=== PATIENT | female | born 1955 | race Caucasian/White ===

== ENCOUNTER → 2017-05-03 | Outpatient (CLI) | payer MEDICARE ==
[2017-05-03 13:53] LABS: Appearance,Urine Clear (Clear); Bacteria,Urine Many /hpf; Bilirubin,Urine Negative (Negative); Glucose,Urine (UA) Negative (Negative); Ketones,Urine Negative (Negative); Leukocyte Esterase,Urine Moderate (Negative); Mucus,Urine Rare /hpf; Nitrite,Urine Negative (Negative); Particle Count 2481; Protein,Urine Trace (Negative); Specific Gravity,Urine 1.014 (1.001-1.035); Squamous Epithelial Cell,Urine 3 /hpf (0-4); UA Billing (MACRO vs. MICRO) MICRO; Urobilinogen,Urine <2.0 mg/dL (<2.0); WBC,Urine 15 /hpf (0-5)
[2017-05-03 14:01] LABS: CH 32.3; CHCM 32.7; HCT 42.5 % (34.0-46.0); HDW 3.01; HGB 14.4 gm/dL (11.4-16.0); MCH 33.6 pg (25.0-35.0); MCHC 33.8 g/dL (31.0-37.0); MCV 99.6 fL (80.0-100.0); Macrocytosis Slight; Mean Platelet Volume 7.3; RBC 4.27 m/uL (3.80-5.40); RDW 15.4 % (11.5-15.5); WBC 6.8 k/uL (3.8-10.6)
[2017-05-03 14:21] LABS: ALT 41 U/L (9-52); AST 36 U/L (14-36); Alkaline Phosphatase 74 U/L (38-126); Anion Gap 11 mmol/L; Blood Urea Nitrogen 25 mg/dL (7-17); Calcium 9.9 mg/dL (8.4-10.2); Carbon Dioxide 26 mmol/L (22-30); Chloride 101 mmol/L (98-107); Cholesterol 142 mg/dL (<200); Glucose 92 mg/dL (74-99); HDL Cholesterol 50 mg/dL (40-60); Non-African American GFR(MDRD) 56 (>60 ml/min/1.73 sqM); Potassium 4.8 mmol/L (3.5-5.1); Sodium 138 mmol/L (137-145); Total Bilirubin 0.6 mg/dL (0.2-1.3)
[2017-05-03 14:23] LABS: Rheumatoid Factor, Qnt <9 IU/mL (<12)
[2017-05-03 16:07] LABS: Erythrocyte Sedimentation Rate 39 mm/hr (0-20)
[2017-05-03 17:36] LABS: Hemoglobin A1C 6.2 % (4.2-6.1)
[2017-05-03 19:46] LABS: ANA w/Reflex to Titer POSITIVE (NEGATIVE)
== END | disposition home or self-care (01) ==
LOC: LABWHC1 13:09
PROVIDERS: ATTEND Family Medicine
DX: E78.5 Hyperlipidemia, unspecified (principal); I10 Essential (primary) hypertension; R73.9 Hyperglycemia, unspecified; M19.91 Primary osteoarthritis, unspecified site
CPT/HCPCS: 36415; 80053; 80061; 81001; 83036; 84439; 84443; 84550; 85027; 85652; 86038; 86039; 86225; 86431

== ENCOUNTER 2017-05-16 07:53 | Day surgery (SDC) | payer MEDICARE ==
[2017-05-14 18:09] VITALS: BMI 42.5
[~2017-05-16 07:53] MED LIST: LACTATED RINGERS 1,000 ML IV SCH
[2017-05-16 08:30] VITALS: TEMP 98.9
[2017-05-16] MEDS ORDERED: LIDOCAINE 1% 20 ML VIAL (10MG/ML) FOR IV START INTRADERMA ONE (08:43)
[2017-05-16 08:46] LABS: Glucose,Whole Blood 95 mg/dL (75-99)
[2017-05-16] MEDS ORDERED: MIDAZOLAM 2 MG/2 ML VIAL ONE (08:49)
[2017-05-16] MEDS ORDERED: fentaNYL (PF) 50 MCG/ML 2 ML AMP ONE (08:49)
[2017-05-16] MEDS ORDERED: PROPOFOL 10 MG/ML 20 ML VIAL IV ONE (08:49)
--- NOTE | 2017-05-16 09:05 | P.PCN ---
Date of Procedure: 05/16/17 Procedure(s) Performed: BRIEF HISTORY: Patient is a 61-year-old pleasant white female, scheduled for an elective colonoscopy as a part of screening for colorectal neoplasia. She also has family history of colon cancer diagnosed in her mother at age 55. PROCEDURE PERFORMED: Colonoscopy with biopsy. PREOPERATIVE DIAGNOSIS: Screening for colon cancer and family history of colon cancer. IV sedation per Anesthesia. PROCEDURE: After informed consent was obtained, the patient, was brought into the endoscopy unit. IV sedation was administered by Anesthesia under continuous monitoring. Digital rectal examination was normal. Initially the Olympus CF- 160 flexible video colonoscope was then inserted in the rectum, gradually advanced into the cecum without any difficulty. Careful examination was performed as the scope was gradually being withdrawn. Ileocecal valve and the appendiceal orifice were visualized and appeared normal. Prep was excellent. In the base of the cecum there was a 5 mm polyp that was removed by biopsy. Mucosa of the cecum, ascending colon, transverse colon, descending colon, sigmoid colon, and rectum appeared normal. Retroflexion was performed in the rectum and no lesions were seen. The patient tolerated the procedure well. IMPRESSION: 5 mm cecal polyp status post removal by biopsy. Rest of the colon appeared normal. RECOMMENDATIONS: Findings of this examination were discussed with the patient as well as a family. She was advised to follow with the biopsy results. She was advised to have a repeat colonoscopy in 5 years because of the family history of colon cancer
[2017-05-16 09:11] VITALS: RESP 20
[2017-05-16 09:31] VITALS: BP 119/74; PULSE 62
== END 2017-05-16 09:50 | disposition home or self-care (01) ==
LOC: ORWHC2ENDO 07:53
PROVIDERS: ATTEND Internal Medicine Gastroenterology
DX: Z12.11 Encounter for screening for malignant neoplasm of colon (principal); K63.5 Polyp of colon; Z80.0 Family history of malignant neoplasm of digestive organs; I10 Essential (primary) hypertension; E78.5 Hyperlipidemia, unspecified; K21.9 Gastro-esophageal reflux disease without esophagitis; Z79.891 Long term (current) use of opiate analgesic; Z79.899 Other long term (current) drug therapy
CPT/HCPCS: 88305; 45380; J2250; J3010; J2704

== ENCOUNTER → 2017-05-24 | Outpatient (CLI) | payer MEDICARE ==
--- NOTE | 2017-05-24 15:15 | BD ---
EXAMINATION TYPE: MG DEXA axial skeleton. DATE OF EXAM: 05/24/2017 CLINICAL HISTORY: Postmenopausal female. Screening. Height: 58.75 Weight: 220 FRAX RISK QUESTIONS: Alcohol (3 or more units per day): no Family History (Parent hip fracture): no Glucocorticoids (More than 3mos): no (Ex: prednisone, prednisolone, methylprednisolone, dexamethasone, and hydrocortisone). History of Fracture in Adulthood: yes, right ankle 2009 Secondary Osteoporosis: 1. Type 1 Diabetes: no 2. Hyperthyroidism: no 3. Menopause before 45: no 4. Malnutrition: no 5. Chronic liver disease: no Rheumatoid Arthritis: unsure; being tested Current Tobacco Use: no RISK FACTORS HISTORY OF: Family History of Osteoporosis: perhaps mother Active: somewhat Diet low in dairy products/other sources of calcium: no Postmenopausal woman: yes Take estrogen and/or progesterone medications: no Lost more than 2 inches in height since high school: unsure, states may have been about 5 feet 2 inch es tall at one time Frequent falls: not often Poor Health: patient states not in good health Hyperparathyroidism: no Adrenal Insufficiency: no MEDICATIONS: Prednisone or other steroids: no Thyroid Medications: no Osteoporosis Medications: no Additional Medications: "water pill", cholesterol meds, multivitamin Additional History: osteoarthritis (degenerative disc disease- per 2013 MR Lumbar study) EXAM MEASUREMENTS: Bone mineral densitometry was performed using the [employer] System. Bone mineral density as measured about the Lumbar spine is: ----- L1-L4(G/cm2): 1.358 T Score Values are as follows: ----- L2: 1.9 ----- L3: 2.2 ----- L4: 0.4 ----- L1-L4: 1.5 Bone mineral density BASELINE Bone mineral density about the R hip (g/cm2): 0.817 Bone mineral density about the L hip (g/cm2): 0.842 T Score values are as follows: -----R Neck: -1.6 -----L Neck: -1.4 -----R Total: -1.0 -----L Total: -0.4 Bone mineral density BASELINE IMPRESSION: Osteopenia (T Score between -2.5 and -1) as noted by T score values There is slightly increased risk of fracture and the patient may be considered for treatment. Re-Screen 2-5 years. NOTE: T-SCORE=SD OF THE YOUNG ADULT MEAN.
--- NOTE | 2017-05-28 10:54 | MM ---
Reason for exam: screening (asymptomatic). Last mammogram was performed 1 year and 8 months ago. History: Patient is postmenopausal and is nulliparous. Physical Findings: A clinical breast exam by your physician is recommended on an annual basis and results should be correlated with mammographic findings. MG Screening Mammo w CAD Bilateral CC and MLO view(s) were taken. Prior study comparison: September 28, 2015, bilateral MG screening mammo w CAD. June 22, 2014, bilateral MG screening mammo w CAD. The breast tissue is almost entirely fat. No significant changes when compared with prior studies. ASSESSMENT: Benign, BI-RAD 2 RECOMMENDATION: Routine screening mammogram of both breasts in 1 year.
== END | disposition home or self-care (01) ==
LOC: RADMAMWWP 13:29
PROVIDERS: ATTEND Family Medicine
DX: Z12.31 Encounter for screening mammogram for malignant neoplasm of breast (principal); M85.80 Other specified disorders of bone density and structure, unspecified site; M19.90 Unspecified osteoarthritis, unspecified site
CPT/HCPCS: 77080; G0202

== ENCOUNTER → 2018-04-05 | Outpatient (CLI) | payer MEDICARE | END | disposition home or self-care (01) | LOC: LABWHC1 14:41 | PROVIDERS: ATTEND Internal Medicine Interventional Cardiology | DX: E03.9 Hypothyroidism, unspecified (principal) | CPT/HCPCS: 36415; 84439; 84443 ==

== ENCOUNTER → 2018-04-15 | Outpatient (CLI) | payer MEDICARE ==
[2018-04-15 15:35] LABS: HCT 37.2 % (34.0-46.0); HGB 12.5 gm/dL (11.4-16.0); MCH 32.9 pg (25.0-35.0); MCHC 33.5 g/dL (31.0-37.0); MCV 98.1 fL (80.0-100.0); Mean Platelet Volume 6.7; Platelet Count 344 k/uL (150-450); RDW 13.8 % (11.5-15.5); WBC 7.1 k/uL (3.8-10.6)
[2018-04-15 15:49] LABS: Magnesium 1.9 mg/dL (1.6-2.3); Potassium 4.1 mmol/L (3.5-5.1)
== END | disposition home or self-care (01) ==
LOC: LABWHC1 14:45
PROVIDERS: ATTEND Internal Medicine Interventional Cardiology
DX: Z01.812 Encounter for preprocedural laboratory examination (principal); I10 Essential (primary) hypertension; R07.9 Chest pain, unspecified
CPT/HCPCS: 36415; 80048; 83735; 85027

== ENCOUNTER 2018-04-24 08:46 | Day surgery (SDC) | payer MEDICARE ==
[2018-04-22 14:53] VITALS: BMI 43.9
[~2018-04-24 08:46] MED LIST changes: +ALPRAZolam 0.25 MG TAB PO PRN; +ASPIRIN 325 MG TAB PO ONE; -LACTATED RINGERS 1,000 ML IV SCH; +SODIUM CHLORIDE 0.9% 1,000 ML in EMPTY BAG 1 BAG IV ONE
[2018-04-24 09:26] VITALS: PULSE 68
[2018-04-24] MEDS ORDERED: LIDOCAINE 1% INJ 10MG/ML (20 ML MDV) ONE (10:55)
[2018-04-24] MEDS ORDERED: MIDAZOLAM 2 MG/2 ML VIAL ONE (10:55)
[2018-04-24] MEDS ORDERED: diphenhydrAMINE 50 MG/ML 1 ML VIAL ONE (10:56)
[2018-04-24] MEDS ORDERED: LIDOCAINE 1% INJ 10MG/ML (20 ML MDV) SQ ONE ×2 (11:05→11:06)
[2018-04-24] MEDS ORDERED: MIDAZOLAM 2 MG/2 ML VIAL IVP ONE (11:07)
[2018-04-24] MEDS ORDERED: diphenhydrAMINE 50 MG/ML 1 ML VIAL IVP ONE (11:08)
[2018-04-24] MEDS ORDERED: MORPHINE SULFATE 4 MG/ML SYRINGE ONE (11:21)
[2018-04-24] MEDS ORDERED: IOPAMIDOL-370 100ML BTL INJ ONE (11:22)
[2018-04-24] MEDS ORDERED: MORPHINE SULFATE 4 MG/ML SYRINGE IVP ONE (11:22)
[2018-04-24] MEDS ORDERED: RX INFO: IV CONTRAST WAS GIVEN 1 EACH MISC MISCELLANE PRN (11:42)
[2018-04-24] MEDS ORDERED: SODIUM CHLORIDE 0.9% 1,000 ML IV SCH (11:45)
--- NOTE | 2018-04-24 13:57 | CC ---
CARDIAC CATHETERIZATION REPORT DATE OF SERVICE: 04/24/2018. PROCEDURE: Left heart catheterization, coronary angiography and left ventriculography. PERFORMED BY: Dr. Anitha Clarke. Moderate conscious sedation time was 28 minutes. The patient received Versed, Benadryl and was monitored closely with monitoring of oxygen saturation, hemodynamics and EKG. CLINICAL INFORMATION: Mrs. Lorie Denton is a 62-year-old lady with a history of probable sleep apnea, who does not wish to have any sleep study performed. She also has hyperlipidemia and family history of CAD. She has been having chest tightness and pressure and I attempted a stress test, but she could not have it done because she could not walk and she had slower heart rates and therefore Lexiscan was not a good option and she did not wish to have dobutamine. I therefore recommended coronary angiography in view of ongoing episodes of chest discomfort. She has underlying sick sinus syndrome, but the last Holter revealed an average heart rate in the 60s. She has some blocked PACs as well. PROCEDURE NOTE: Under local anesthesia and strict aseptic precautions, a 6-Latvian introducer was placed in the right femoral artery. Standard Lolis catheters were used to perform coronary angiography and a pigtail catheter was used to perform LV gram. Catheter and sheath was taken out and I attempted a Perclose device, but the string in the Perclose broke and therefore I switched over to a Angio-Seal. An 8-Latvian Angio-Seal was placed. Excellent hemostasis was secured. The patient was sent to the room in a stable condition. This patient also has history of paroxysmal atrial fibrillation. She has held her Xarelto for 48 hours. CARDIAC CATHETERIZATION FINDINGS: The left ventricular end-diastolic pressure was about 12 mmHg without any significant change after the LV-gram. There was no gradient across aortic valve. CORONARY ANGIOGRAPHY FINDINGS: RIGHT CORONARY ARTERY: Technically dominant vessel, has no significant disease. Distally bifurcates into PDA and PLV and supplies a fair amount of myocardium and is disease-free dominant vessel. LEFT MAIN CORONARY ARTERY: Long disease-free vessel that bifurcates into LAD and circumflex. LEFT ANTERIOR DESCENDING CORONARY ARTERY: Good caliber vessel, gives off septal and diagonal branches, quite tortuous, runs all the way to the apex and curves over the inferoapical portion and supplies a sizable amount of the distal inferior wall as well. No significant disease is noted in the LAD system. CIRCUMFLEX CORONARY ARTERY: Nondominant vessel gives off a single tortuous obtuse marginal that is free of significant disease and then runs in the AV groove, has no significant disease, supplies a fair amount of myocardium. Minor irregularities are noted without significant disease. LEFT VENTRICULOGRAM: This was performed in 30 degree DILLARD projection revealed a left ventricle that is of normal size with good systolic function. There was some ventricular tachycardia noted but ejection fraction is at least 60%. IMPRESSION: This patient has a right-dominant system, no significant obstructive coronary artery disease and good systolic function. There was no gradient across aortic valve. RECOMMENDATION: Findings were discussed with the patient and family. Aggressive risk factor modification is advised. Given her underlying sick sinus syndrome and paroxysmal atrial fibrillation, I will not use any rate lowering agents. Her Xarelto will be resumed after 24 hours and she will be discharged later on today. [id number] / ROBSONN: [id number] /
--- NOTE | 2018-04-24 14:03 | LTR ---
April 24, [address] Garcia: Thank you for allowing me to participate in the care of Mrs. Denton. Please find enclosed my detailed cardiac cath report for your records. I am pleased to report to you that she does not have any significant obstructive CAD and LV function is well preserved and filling pressures are normal. Thank you for your referral and please do call for questions. With kindest regards. Sincerely yours, MMODL / IJN: [id number] /
[2018-04-24 18:52] VITALS: BP 122/72; RESP 20
== END 2018-04-24 18:45 | disposition home or self-care (01) ==
LOC: CATHCVL 08:46
PROVIDERS: ATTEND Internal Medicine Interventional Cardiology
DX: I47.2 Ventricular tachycardia (principal); I77.1 Stricture of artery; I49.5 Sick sinus syndrome; I48.0 Paroxysmal atrial fibrillation; I10 Essential (primary) hypertension; E78.00 Pure hypercholesterolemia, unspecified; E78.5 Hyperlipidemia, unspecified; S94.8X Injury of other nerves at ankle and foot level; Z79.01 Long term (current) use of anticoagulants; Z79.890 Hormone replacement therapy; Z79.899 Other long term (current) drug therapy
CPT/HCPCS: 93458; C1760 ×2; C1894; C1769 ×2; J2250; J2270; J1200; J2001; Q9967

== ENCOUNTER 2018-11-07 18:33 | Emergency (ER) | payer MEDICARE ==
[2018-11-07 18:47] VITALS: TEMP 98.4
[2018-11-07] MEDS ORDERED: TOPICAL SKIN ADHESIVE 1 EACH AMP TOPICAL ONE (19:28)
--- NOTE | 2018-11-07 19:33 | ED ---
General Adult HPI - General Chief complaint: Extremity Injury, Lower Stated complaint: RT MIDDLE TOE BLEEDING Time Seen by Provider: 11/07/18 18:53 Source: patient, RN notes reviewed, old records reviewed Mode of arrival: ambulatory Limitations: no limitations - History of Present Illness Initial comments: 63-year-old female patient past, history of atrial fibrillation - on xaralto, hypothyroidism, hyperlipidemia presents to ED after she cut her third toenail on her right foot too closely causing some bleeding. Patient reports that this bleeding has been persistent for approximately 3 hours. Patient presents to ED for further evaluation. Patient denies other complaints. Systemic: Pt denies fatigue, myalgia, fever/chills, rash. Pt denies weakness, night sweats, weight loss. Neuro: Pt denies headache, visual disturbances, syncope or pre-syncope. HEENT: Pt denies ocular discharge or irritation, otalgia, rhinorrhea, pharyngitis or notable lymphadenopathy. Cardiopulmonary: Pt denies chest pain, SOB, heart palpitations, dyspnea on exertion. Abdominal/GI: Pt denies abdominal pain, n/v/d. : Pt denies dysuria, burning w/ urination, frequency/urgency. Denies new onset urinary or bowel incontinence. MSK: Pt denies myalgia, loss of strength or function in extremities. Neuro: Pt denies new onset weakness, paresthesias. - Related Data Home Medications Medication Instructions Recorded Confirmed Ascorbic Acid [Vitamin C] 500 mg PO DAILY 05/14/17 11/07/18 Atorvastatin [Lipitor] 10 mg PO HS 05/14/17 11/07/18 Calcium Carbonate [Calcium] 600 mg PO DAILY 05/14/17 11/07/18 Cholecalciferol [Vitamin D3] 2,000 unit PO DAILY 05/14/17 11/07/18 Cranberry Fruit Extract [Cranberry] 200 mg PO DAILY 05/14/17 11/07/18 Gabapentin [Neurontin] 300 mg PO QID 05/14/17 11/07/18 Garlic 1 tab PO DAILY 05/14/17 11/07/18 Latanoprost Ophth [Xalatan 0.005%] 1 drops BOTH EYES HS 05/14/17 11/07/18 Meclizine [Antivert] 25 mg PO BID 05/14/17 11/07/18 Multivit with Calcium,Iron,Min 1 tab PO DAILY 05/14/17 11/07/18 [Women's Multivitamin] Omeprazole Magnesium [Prilosec OTC] 20 mg PO Q48H 05/14/17 11/07/18 Triamterene/Hydrochlorothiazid 1 tab PO DAILY 05/14/17 11/07/18 [Triamterene-Hctz 37.5-25 mg Tb] traMADol HCL [Ultram] 50 mg PO DAILY 05/14/17 11/07/18 Rivaroxaban [Xarelto] 20 mg PO HS 08/22/17 11/07/18 Acetaminophen [Tylenol Extra 500 - 1,000 mg PO Q6H PRN 04/22/18 11/07/18 Strength] Fish Oil/Dha/Epa [Fish Oil 1,200 1 cap PO DAILY 04/22/18 11/07/18 mg Fish Oil] Ibuprofen 400 mg PO HS 04/22/18 11/07/18 Levothyroxine Sodium [Synthroid] 50 mcg PO DAILY 04/22/18 11/07/18 cycloSPORINE [Restasis] 1 drop BOTH EYES BID 04/22/18 11/07/18 Timolol 0.5% Ophth Gel Forming 1 drops BOTH EYES DAILY 11/07/18 11/07/18 [Timoptic-Xe] Allergies Allergy/AdvReac Type Severity Reaction Status Date / Time No Known Allergies Allergy Verified 11/07/18 20:24 Review of Systems ROS Statement: Those systems with pertinent positive or pertinent negative responses have been documented in the HPI. ROS Other: All systems not noted in ROS Statement are negative. Past Medical History Past Medical History: Hypertension, Osteoarthritis (OA) Additional Past Medical History / Comment(s): chronic back pain and neuropathy, open wound right foot History of Any Multi-Drug Resistant Organisms: None Reported Past Surgical History: Orthopedic Surgery Additional Past Surgical History / Comment(s): eye surgery Past Anesthesia/Blood Transfusion Reactions: No Reported Reaction Past Psychological History: No Psychological Hx Reported Smoking Status: Never smoker Past Alcohol Use History: None Reported Past Drug Use History: None Reported - Past Family History Mother Family Medical History: Cancer Father Family Medical History: COPD General Exam - General Exam Comments Initial Comments: Constitutional: NAD, AOX3, Pt has pleasant affect. HEENT: NC/AT, trachea midline, neck supple, no lymphadenopathy. Posterior pharynx non erythematous, without exudates. External ears appear normal, without discharge. Mucous membranes moist. Eyes PERRLA, EOM intact. There is no scleral icterus. No pallor noted. Cardiopulmonary: RRR, no murmurs, rubs or gallops, no JVD noted. Lungs CTAB in anterior and posterior nieves. No peripheral edema. Abdominal exam: Abdomen soft and non-distended. Abdomen non-tender to palpation in all 4 quadrants. Bowel sounds active in LLQ. No hepatosplenomegaly. No ecchymosis Neuro: CN II-XII grossly intact. No nuchal rigidity. MSK: Small laceration on toe nail of third toe of right foot, small amount of bleeding. Closed with topical exofin. Hemostasis achieved. No posterior calf tenderness bilaterally, homans sign negative bilaterally. Posterior tibialis and radial pulse +2 bilaterally. Sensation intact in upper and lower extremities. Full active ROM in upper and lower extremities, 5/5 stregnth. Limitations: no limitations Course Vital Signs 11/07/18 11/07/18 18:42 20:06 Temperature 98.4 F Pulse Rate 80 64 Respiratory 18 16 Rate Blood Pressure 149/127 112/69 O2 Sat by Pulse 98 97 Oximetry Medical Decision Making - Medical Decision Making 63-year-old female patient past, history of atrial fibrillation - on xaralto, hypothyroidism, hyperlipidemia presents to ED after she cut her third toenail on her right foot too closely causing some bleeding. Patient reports that this bleeding has been persistent for approximately 3 hours. Patient presents to ED for further evaluation. Patient denies other complaints. Patient will signs stable, afebrile. Physical exam displayed Small laceration on toenail of third toe of right foot, small amount of bleeding. Closed with topical exofin. Hemostasis achieved. An tetanus updated. Patient to follow up with primary care provider in 1-2 days. Patient to return to ED if these has symptoms develop or if condition worsens in any way. Case discussed with Dr. Piper. Disposition Clinical Impression: Laceration Disposition: HOME SELF-CARE Condition: Stable Instructions (If sedation given, give patient instructions): Laceration (ED) Additional Instructions: Patient to adhere to previously discussed treatment plan and will take medication(s) as directed. Patient to follow up with PCP in 1-2 days. Patient to return to ED if symptoms do not improve. Please monitor for signs and symptoms of infection including: redness, warmth, drainage, discharge. Please return to ED if these signs or symptoms occur, new signs or symptoms dev elop or if condition worsens in anyway. Is patient prescribed a controlled substance at d/c from ED?: No Referrals: Blaze Garcia DO [Primary Care Provider] - 1-2 days
[2018-11-07] MEDS ORDERED: DIPH,PERTUS(ACELL)TETVAC-LF 0.5 ML VIAL IM ONE (19:53)
[2018-11-07 20:07] VITALS: BP 112/69; PULSE 64; RESP 16
== END 2018-11-07 20:24 | disposition home or self-care (01) ==
LOC: EC 18:33
DX: S91.214A Laceration without foreign body of right lesser toe(s) with damage to nail, initial encounter (principal); Z23 Encounter for immunization; I48.91 Unspecified atrial fibrillation; E03.9 Hypothyroidism, unspecified; E78.5 Hyperlipidemia, unspecified; I10 Essential (primary) hypertension; G62.9 Polyneuropathy, unspecified; Z79.01 Long term (current) use of anticoagulants; Z79.890 Hormone replacement therapy; Z79.899 Other long term (current) drug therapy; W27.8XXA Contact with other nonpowered hand tool, initial encounter
CPT/HCPCS: 90471; 90715; 99283

== ENCOUNTER → 2019-05-28 | Outpatient (CLI) | payer MEDICARE ==
[2019-05-29 04:51] LABS: Anion Gap 12.3 mmol/L (4.00-12.00); BUN/Creat Ratio 20.91 Ratio (12.00-20.00); Calcium 9.6 mg/dL (8.7-10.3); Carbon Dioxide 24.7 mmol/L (21.6-31.8); Magnesium 2.2 mg/dL (1.5-2.4); Potassium 4.5 mmol/L (3.5-5.5)
== END | disposition home or self-care (01) ==
LOC: LABWHC1 12:54
PROVIDERS: ATTEND Nurse Practitioner
DX: R60.0 Localized edema (principal)
CPT/HCPCS: 36415; 80048; 83735

== ENCOUNTER 2019-06-04 12:49 | Inpatient (IN) | payer MEDICARE ==
[2019-06-04] MEDS: GABAPENTIN 300 MG CAP PO SCH ×3 (15:30→23:25)
[2019-06-04] MEDS: CLINDAMYCIN 300 MG in DEXTROSE 5% IN WATER 50 ML IVPB SCH ×4 (15:30→20:07)
[2019-06-04] MEDS: traMADol 50 MG TAB PO SCH (15:36)
[2019-06-04] MEDS ORDERED: NALOXONE 0.4 MG/ML 1 ML VIAL SQ STA (16:43)
[2019-06-04 17:25] LABS: Glucose,Whole Blood 99 mg/dL (75-99)
[2019-06-04] MEDS ORDERED: GABAPENTIN 300 MG CAP PO STA (17:29)
[2019-06-04] MEDS: RIVAROXABAN 20 MG TAB PO SCH (17:37)
[2019-06-04] MEDS: INFLUENZA VACCINE (6 MOS+) 60 MCG/0.5 ML SYRINGE IM ONE ×2 (17:40→18:07)
[2019-06-04] MEDS ORDERED: CLINDAMYCIN 300 MG in DEXTROSE 5% IN WATER 50 ML IVPB SCH ×2 (18:00)
[2019-06-04 18:26] VITALS: BMI 44.7
--- NOTE | 2019-06-04 18:34 | P.HPIM ---
History of Present Illness H&P Date: 06/04/19 The patient was initially seen at 1:00 pm and H&P documented in the chart since the wrong patient was admitted. Please see above H&P for the same documentation. 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 Discussed the case with Dr. Pascual who requested for admission for above. The patient notes that she's had these ulcers for a very long time, and that she follows with wound care. She also states that she lives by herself and feels that she is no longer able to manage things at home and would like to discuss possible halfway placement. She notes oozing from the ulcers on the ankle and heel, particularly on the right leg. She denied fever, chills, chest pain, shortness of, nausea, or vomiting. Review of Systems Pertinent positives and negatives as discussed in HPI, a complete review of systems was performed and all other systems are negative. Past Medical History Past Medical History: Atrial Fibrillation, GERD/Reflux, Hypertension, Osteoarthritis (OA) Additional Past Medical History / Comment(s): chronic back pain and neuropathy, open wound right foot, pre-diabetic, neuropathy bilateral feet and right lower leg, sore left lower extremity for approximately one year but saw a doctor about this 3 weeks ago, chronic lower back pain, lower extremity edema, MICHELLE- tried device but could not tolerate it , UTI, benign colon polyps, vertigo, bilat glaucoma/dry eyes, R eye weak muscles, hypothyroid History of Any Multi-Drug Resistant Organisms: None Reported Past Surgical History: Orthopedic Surgery Additional Past Surgical History / Comment(s): eye surgery, Right ankle fracture with ORIF and hardware has since been removed, right foot tarsal release, colonoscopy with polypectomies, bilate cataract removal/ lens implants. Past Anesthesia/Blood Transfusion Reactions: No Reported Reaction Past Psychological History: No Psychological Hx Reported Additional Psychological History / Comment(s): Pt. resides alone in an apartment. She is non-weight bearing to the right foot. uses a walker at home. She does not drive, she has family that can drive her places. She has [facility] for right lower leg dressing changes. Smoking Status: Never smoker Past Alcohol Use History: None Reported Past Drug Use History: None Reported - Past Family History Mother Family Medical History: Cancer Father Family Medical History: COPD Additional Family Medical History / Comment(s): father of ephysema at age 74 yrs. Medications and Allergies Home Medications Medication Instructions Recorded Confirmed Type Atorvastatin [Lipitor] 10 mg PO HS 05/14/17 06/04/19 History Gabapentin [Neurontin] 300 mg PO 5XD 05/14/17 06/04/19 History Meclizine [Antivert] 25 mg PO BID 05/14/17 06/04/19 History Omeprazole Magnesium [Prilosec OTC] 20 mg PO Q48H 05/14/17 06/04/19 History traMADol HCL [Ultram] 50 mg PO DAILY 05/14/17 06/04/19 History Rivaroxaban [Xarelto] 20 mg PO AC-SUPPER 08/22/17 06/04/19 History Acetaminophen [Tylenol Extra 1,500 mg PO Q6H PRN 04/22/18 06/04/19 History Strength] Ibuprofen 200 mg PO HS 04/22/18 06/04/19 History Levothyroxine Sodium [Synthroid] 50 mcg PO DAILY 04/22/18 06/04/19 History cycloSPORINE [Restasis] 1 drop BOTH EYES DAILY 04/22/18 06/04/19 History Timolol 0.5% Ophth Gel Forming 1 drops BOTH EYES DAILY 11/07/18 06/04/19 History [Timoptic-Xe] Bimatoprost [Lumigan .01% Ophth 1 drop BOTH EYES HS 06/04/19 06/04/19 History Soln] Dorzolamide-Timol 2.23%/0.68% 1 drop BOTH EYES BID 06/04/19 06/04/19 History [Cosopt] Furosemide [Lasix] 20 mg PO DAILY 06/04/19 06/04/19 History Allergies Allergy/AdvReac Type Severity Reaction Status Date / Time No Known Allergies Allergy Verified 06/04/19 17:51 Physical Exam Vitals: Vital Signs Temp Pulse Resp BP Pulse Ox 06/04/19 14:43 97.6 F 82 16 127/85 92 L Intake and Output 06/04/19 06/04/19 06/04/19 06:59 14:59 22:59 Other: Weight 104 kg General: non toxic, no distress, appears older than stated age, morbidly obese Derm: R foot plantar surface 2 unstageable ulcers, each 2-3 cm x 2-3 cm; R medial aspect ankle ulcer w/ surrounding erythema, and ozzing Head: atraumatic, normocephalic, symmetric Eyes: EOMI, no lid lag, anicteric sclera, pupils equal round reactive to light ENT: Nose and ears atraumatic, no thrush, no pharyngeal erythema Neck: No thyromegaly, no cervical lymphadenopathy, trachea midline, supple Mouth: no lip lesion, mucus membranes moist Cardiovascular: S1S2 reg, no murmur, positive posterior tibial pulse bilateral, no edema, capillary refill less than 2 seconds Lungs: CTA bilateral, no rhonchi, no rales , no accessory muscle use Abdominal: obese, soft, nontender to palpation, no guarding, no appreciable organomegaly, normal bowel sounds Ext: no gross muscle atrophy, muscle strength 5 out of 5 in all 4 extremities grossly, no contractures, marysol LEs varicosities Neuro: CN II-XI grossly intact, light touch intact all 4 extremities, finger to nose within normal limits, Psych: Alert, oriented, appropriate affect Thrombosis Risk Factor Assmnt - Choose All That Apply Any of the Below Risk Factors Present?: No Assessment and Plan Plan: Right ankle ulcers with cellulitis -Wound care -Start patient on clindamycin -Cultures -Vascular surgery consult Inability to take care of self -rider ticket worker consult Atrial fibrillation -Continue with home meds Xarelto DVT prophylaxis -Xarelto The patient is admitted with an anticipated greater than 2 midnight stay for evaluation of cellulitis CODE STATUS: Full Code Discussed with: Patient, Brother Anticipated discharge date: 2-[address]: SNF A total of 40 minutes was spent on the care of this complex patient more than 50% of the time was spent in counseling and care coordination.
[2019-06-04] MEDS ORDERED: NALOXONE 0.4 MG/ML 1 ML VIAL IV PRN (19:17)
[2019-06-04] MEDS: ATORVASTATIN 10 MG TAB PO SCH (20:07)
[2019-06-04] MEDS: LATANOPROST 0.005% OPHTH DROPS 2.5 ML BTL BOTH EYES SCH (20:08)
[2019-06-04 20:11] LABS: Albumin 3.3 g/dL (3.5-5.0); Calcium 9.3 mg/dL (8.4-10.2); Magnesium 2.1 mg/dL (1.6-2.3); Total Bilirubin 0.3 mg/dL (0.2-1.3); Total Protein 6.5 g/dL (6.3-8.2)
[2019-06-04 20:35] LABS: Glucose,Whole Blood 175 mg/dL (75-99)
[2019-06-04] MEDS ORDERED: DORZOLAMIDE HCL 2% DROPS 10 ML BTL BOTH EYES SCH (21:00)
[2019-06-04] MEDS ORDERED: NON FORMULARY DRUG (Bimatoprost [Lumigan .01% Ophth Soln] 1 DROP) BOTH EYES SCH (21:00)
[2019-06-04] MEDS ORDERED: DORZOLAMIDE-TIMOLOL 2.23%/0.68 10ML BTL BOTH EYES SCH (21:00)
[2019-06-05] MEDS: CLINDAMYCIN 300 MG in DEXTROSE 5% IN WATER 50 ML IVPB SCH ×8 (03:15→20:29)
[2019-06-05] MEDS: ACETAMINOPHEN TAB 325 MG TAB PO PRN ×2 (04:53→20:30)
[2019-06-05] MEDS: LEVOTHYROXINE 50 MCG TAB PO SCH (06:14)
[2019-06-05] MEDS: GABAPENTIN 300 MG CAP PO SCH ×3 (06:14→16:11)
[2019-06-05 06:58] LABS: Glucose,Whole Blood 111 mg/dL (75-99)
[2019-06-05] MEDS: FUROSEMIDE 20 MG TAB PO SCH (07:11)
[2019-06-05] MEDS: traMADol 50 MG TAB PO SCH (07:11)
[2019-06-05 08:27] LABS: Basophils # (A) 0.1 k/uL (0-0.2); Basophils % (A) 1 %; Eosinophils # (A) 0.2 k/uL (0-0.7); Eosinophils % (A) 3 %; HCT 40.8 % (34.0-46.0); Hypochromasia Slight; Lymphocytes # (A) 1.1 k/uL (1.0-4.8); Lymphocytes % (A) 14 %; MCH 33.5 pg (25.0-35.0); MCHC 31.9 g/dL (31.0-37.0); MCV 105.1 fL (80.0-100.0); Macrocytosis Moderate; Mean Platelet Volume 6.6; Monocytes # (A) 0.5 k/uL (0-1.0); Monocytes % (A) 6 %; Neutrophils % (A) 74 %; Platelet Count 395 k/uL (150-450); RBC 3.88 m/uL (3.80-5.40); RDW 14.5 % (11.5-15.5)
[2019-06-05 08:50] LABS: Calcium 9.7 mg/dL (8.4-10.2); Potassium 4.4 mmol/L (3.5-5.1)
[2019-06-05] MEDS ORDERED: cycloSPORINE 0.05% OPHTH 0.4 ML DROPERETTE BOTH EYES SCH ×2 (09:00)
--- NOTE | 2019-06-05 09:35 | P.GSCN ---
History of Present Illness Consult date: 06/04/19 Reason for Consult: Wound ulcers to her right lower extremity. Requesting physician: Ti Rice History of present illness: This is a 63-year-old female patient who is followed by Dr. Blaze Lam on an outpatient basis. 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 The patient has been followed in the wound healing center by Dr. Pascual. The patient reports that she has been having weeping from her right lower extremity for the past few months and was seen by a vascular surgeon on an outpatient basis. She reports that the vascular surgeon she saw want her to be seen in the wound healing center. She denies any recent fever, chills, nausea, vomiting, recent injury or trauma, shortness of breath, constipation or diarrhea. After being seen in the wound healing center by Dr. Pascual he felt the patient should be admitted for further medical management and wound care treatments. She also reports that she lives at home independently although in the past few weeks she has been unable to care for herself. Due to her wounds to her bilateral lower extremities Dr. Pascual was asked to evaluate the wounds and for treatment recommendations. Review of Systems A 14 point review of systems was completed and was negative except as mentioned in the HPI. Past Medical History Past Medical History: Atrial Fibrillation, Diabetes Mellitus, GERD/Reflux, Hypertension, Neurologic Disorder (Peripheral neuropathy), Osteoarthritis (OA) Additional Past Medical History / Comment(s): chronic back pain and neuropathy, open wound right foot, pre-diabetic, neuropathy bilateral feet and right lower leg, sore left lower extremity for approximately one year but saw a doctor about this 3 weeks ago, chronic lower back pain, lower extremity edema, MICHELLE- tried device but could not tolerate it , UTI, benign colon polyps, vertigo, bilat glaucoma/dry eyes, R eye weak muscles, hypothyroid History of Any Multi-Drug Resistant Organisms: None Reported Past Surgical History: Orthopedic Surgery Additional Past Surgical History / Comment(s): eye surgery, Right ankle fracture with ORIF and hardware has since been removed, right foot tarsal release, colonoscopy with polypectomies, bilate cataract removal/ lens implants. Past Anesthesia/Blood Transfusion Reactions: No Reported Reaction Past Psychological History: No Psychological Hx Reported Additional Psychological History / Comment(s): Pt. resides alone in an apartmen t. She is non-weight bearing to the right foot. uses a walker at home. She does not drive, she has family that can drive her places. She has VNA for right lower leg dressing changes. Smoking Status: Never smoker Past Alcohol Use History: None Reported Past Drug Use History: None Reported - Past Family History Mother Family Medical History: Cancer, Renal Disease Father Family Medical History: COPD Additional Family Medical History / Comment(s): father of ephysema at age 74 yrs. Medications and Allergies Home Medications Medication Instructions Recorded Confirmed Type Atorvastatin [Lipitor] 10 mg PO HS 05/14/17 06/04/19 History Gabapentin [Neurontin] 300 mg PO 5XD 05/14/17 06/04/19 History Meclizine [Antivert] 25 mg PO BID 05/14/17 06/04/19 History Omeprazole Magnesium [Prilosec OTC] 20 mg PO Q48H 05/14/17 06/04/19 History traMADol HCL [Ultram] 50 mg PO DAILY 05/14/17 06/04/19 History Rivaroxaban [Xarelto] 20 mg PO AC-SUPPER 08/22/17 06/04/19 History Acetaminophen [Tylenol Extra 1,500 mg PO Q6H PRN 04/22/18 06/04/19 History Strength] Ibuprofen 200 mg PO HS 04/22/18 06/04/19 History Levothyroxine Sodium [Synthroid] 50 mcg PO DAILY 04/22/18 06/04/19 History cycloSPORINE [Restasis] 1 drop BOTH EYES DAILY 04/22/18 06/04/19 History Timolol 0.5% Ophth Gel Forming 1 drops BOTH EYES DAILY 11/07/18 06/04/19 History [Timoptic-Xe] Bimatoprost [Lumigan .01% Ophth 1 drop BOTH EYES HS 06/04/19 06/04/19 History Soln] Dorzolamide-Timol 2.23%/0.68% 1 drop BOTH EYES BID 06/04/19 06/04/19 History [Cosopt] Furosemide [Lasix] 20 mg PO DAILY 06/04/19 06/04/19 History Allergies Allergy/AdvReac Type Severity Reaction Status Date / Time No Known Allergies Allergy Verified 06/04/19 17:51 Surgical - Exam Vital Signs Temp Pulse Resp BP Pulse Ox 97.6 F 82 16 127/85 92 L 06/04/19 14:43 06/04/19 14:43 06/04/19 14:43 06/04/19 14:43 06/04/19 14:43 - General Morbidly obese well developed, well nourished, no distress, no pain - Eyes PERRL, normal ocular movement - ENT normal pinna, normal nares, normal mucosa, no hearing loss, no congestion, poor care home - Neck Neck is supple, no lymphadenopathy. no masses, no bruits, trachea midline, no venous distension - Respiratory Lung sounds essentially clear throughout. Respirations are symmetrical and nonlabored. No wheezes, rhonchi or crackles appreciated. - Cardiovascular Irregular rhythm and controlled rate. S1 and S2 present, negative for S3, gallop or murmur. No edema present. - Abdomen Abdomen soft, nontender and nondistended. Active bowel sounds present all 4 abdominal quadrants. No guarding or rigidity. No organomegaly appreciated. Obese. - Genitourinary Deferred - Rectum Deferred - Integumentary Right lower extremity dressing clean, dry and intact. There is a localized firm thickening of the skin to her left ball of her foot. No redness or drainage is present. no rash, no growths - Neurologic Cranial nerves II through XII intact, no focal deficits. normal coordination, normal sensation - Musculoskeletal Moves all 4 extremities appropriately. - Psychiatric oriented to time, oriented to person, oriented to place, speech is normal, memory intact Results - Labs 06/05/19 07:45 06/05/19 07:45 Abnormal Lab Results - Last 24 Hours (Table) 06/04/19 06/04/19 06/05/19 Range/Units 19:27 20:34 06:55 MCV (80.0-100.0) fL BUN 27 H (7-17) mg/dL Glucose 158 H (74-99) mg/dL POC Glucose (mg/dL) 175 H 111 H (75-99) mg/dL Albumin 3.3 L (3.5-5.0) g/dL 06/05/19 06/05/19 Range/Units 07:45 07:45 MCV 105.1 H (80.0-100.0) fL BUN 22 H (7-17) mg/dL Glucose (74-99) mg/dL POC Glucose (mg/dL) (75-99) mg/dL Albumin (3.5-5.0) g/dL Diabetes panel 06/04/19 06/05/19 Range/Units 19:27 07:45 Sodium 139 140 (137-145) mmol/L Potassium 4.0 4.4 (3.5-5.1) mmol/L Chloride 103 102 (98-107) mmol/L Carbon Dioxide 28 30 (22-30) mmol/L BUN 27 H 22 H (7-17) mg/dL Creatinine 0.94 0.87 (0.52-1.04) mg/dL Glucose 158 H 98 (74-99) mg/dL Calcium 9.3 9.7 (8.4-10.2) mg/dL AST 31 (14-36) U/L ALT 16 (9-52) U/L Alkaline Phosphatase 59 (38-126) U/L Total Protein 6.5 (6.3-8.2) g/dL Albumin 3.3 L (3.5-5.0) g/dL Calcium panel 06/04/19 06/05/19 Range/Units 19:27 07:45 Calcium 9.3 9.7 (8.4-10.2) mg/dL Albumin 3.3 L (3.5-5.0) g/dL Pituitary panel 06/04/19 06/05/19 Range/Units 19:27 07:45 Sodium 139 140 (137-145) mmol/L Potassium 4.0 4.4 (3.5-5.1) mmol/L Chloride 103 102 (98-107) mmol/L Carbon Dioxide 28 30 (22-30) mmol/L BUN 27 H 22 H (7-17) mg/dL Creatinine 0.94 0.87 (0.52-1.04) mg/dL Glucose 158 H 98 (74-99) mg/dL Calcium 9.3 9.7 (8.4-10.2) mg/dL Adrenal panel 06/04/19 06/05/19 Range/Units 19:27 07:45 Sodium 139 140 (137-145) mmol/L Potassium 4.0 4.4 (3.5-5.1) mmol/L Chloride 103 102 (98-107) mmol/L Carbon Dioxide 28 30 (22-30) mmol/L BUN 27 H 22 H (7-17) mg/dL Creatinine 0.94 0.87 (0.52-1.04) mg/dL Glucose 158 H 98 (74-99) mg/dL Calcium 9.3 9.7 (8.4-10.2) mg/dL Total Bilirubin 0.3 (0.2-1.3) mg/dL AST 31 (14-36) U/L ALT 16 (9-52) U/L Alkaline Phosphatase 59 (38-126) U/L Total Protein 6.5 (6.3-8.2) g/dL Albumin 3.3 L (3.5-5.0) g/dL Assessment and Plan Assessment: 1. Right ankle ulcers with cellulitis 2. Chronic atrial fibrillation on Xarelto for home anticoagulation 3. History of peripheral neuropathy 4. Diabetes mellitus type 2 5. Morbid obesity 6. History of obstructive sleep apnea with no home CPAP use 7. History of GERD 8. History of hypertension 9. Osteoarthritis. Plan: The patient was seen and examined at the bedside on the medical surgical unit. Her chart and diagnostics were reviewed. She was seen and examined by Dr. Pascual and the wound healing center. We will keep her right lower extremity dressing in place until 06/06/2019. Wound care instructions are as follows apply absorptive silver to her right lower extremity ulceration, cover with dry gauze, rolled gauze and elastic wrap to bilateral lower extremities. Change the dressings Sunday and Sunday. Continue GI and DVT prophylaxis. Medical management and other comorbidities management per primary care service. The patient will be placed on a no weightbearing status to promote wound healing. Thank you Dr. Rice for this consult and we will look forward to working within the care of your patient. Time with Patient: Greater than 30
[2019-06-05 12:08] LABS: Glucose,Whole Blood 97 mg/dL (75-99)
[2019-06-05] MEDS: cycloSPORINE 0.05% OPHTH 0.4 ML DROPERETTE BOTH EYES SCH (16:08)
[2019-06-05 17:28] LABS: Glucose,Whole Blood 130 mg/dL (75-99)
[2019-06-05] MEDS: RIVAROXABAN 20 MG TAB PO SCH (17:41)
--- NOTE | 2019-06-05 19:54 | P.PN ---
Subjective Progress Note Date: 06/05/19 (delayed charting seen at 1430) Principal diagnosis: leg pain Patient is a 63-year-old female with past medical history of atrial fibrillation, GERD, hypertension, osteoarthritis, and an open wound on the right foot and left lower extremity was following with Dr. Pascual who was seen by Dr. Pascual recommended for direct admission secondary to cellulitis and infected diabetic wound right ankle. Patient had been seen at the wound clinic for approximately 3 weeks. She was not having any improvement in her wound, and they were beginning to ooze. On arrival here her vital signs are within normal limits. Laboratory analysis was unremarkable other than elevated glucose. Vascular surgery was consulted. She was started on clindamycin for possible cellulitis. On 06/05 a dressing was placed to her right lower extremity which will be kept in place until 06/06/19. The patient had Will apply absorptive silver her right lower extremity cover with dry gauze, roll with Curlex, and place an elastic Jack wrap to bilateral lower extremity. She should change the dressings on Sunday, Sunday, and Fridays. Patient seen and examined at bedside. She reports that her pain in her lower extremity is worse today issue is 1 dose of gabapentin yesterday. She denies a ny nausea, vomiting, chest pain, shortness of breath, or diarrhea. Objective - Vital Signs Vital signs: Vital Signs Temp 97.6 F 06/05/19 12:05 Pulse 64 06/05/19 12:05 Resp 18 06/05/19 12:05 BP 118/80 06/05/19 12:05 Pulse Ox 96 06/05/19 12:05 Intake & Output 06/05/19 06/05/19 06/06/19 06:59 18:59 06:59 Other: Voiding Method Toilet # Voids 2 3 # Bowel Movements 1 1 - Exam General: non toxic, no distress, appears at stated age Derm: Dressing in place bilateral lower extremities, warm, dry Head: atraumatic, normocephalic, symmetric Eyes: EOMI, no lid lag, anicteric sclera Mouth: no lip lesion, mucus membranes moist Cardiovascular: S1S2 reg, no murmur, positive posterior tibial pulse bilateral, Lungs: Decreased breath sounds bilatera, no rhonchi, no rales , no accessory muscle use Abdominal: soft, nontender to palpation, no guarding, no appreciable organomegaly Ext: no gross muscle atrophy, no edema, no contractures Neuro: CN II-XI grossly intact, no focal neuro deficits Psych: Alert, oriented, appropriate affect - Labs CBC & Chem 7: 06/05/19 07:45 06/05/19 07:45 Labs: Abnormal Lab Results - Last 24 Hours (Table) 06/04/19 06/04/19 06/05/19 Range/Units 19:27 20:34 06:55 MCV (80.0-100.0) fL BUN 27 H (7-17) mg/dL Glucose 158 H (74-99) mg/dL POC Glucose (mg/dL) 175 H 111 H (75-99) mg/dL Albumin 3.3 L (3.5-5.0) g/dL 06/05/19 06/05/19 06/05/19 Range/Units 07:45 07:45 17:07 MCV 105.1 H (80.0-100.0) fL BUN 22 H (7-17) mg/dL Glucose (74-99) mg/dL POC Glucose (mg/dL) 130 H (75-99) mg/dL Albumin (3.5-5.0) g/dL Assessment and Plan Assessment: Cellulitis with infected right ankle diabetic ulcer -Continue with clindamycin -Wound care recommendations: The patient will apply absorptive silver to her right lower extremity cover with dry gauze, roll with Curlex, and place an elastic Jack wrap to bilateral lower extremity. She should change the dressings on Sunday, Sunday, and Fridays. -Pain control -IV fluids Diabetes mellitus type 2, suboptimal control and diabetic neuropathy -Patient on any diabetic medications per medication reconciliation -Sliding-scale insulin, follow blood sugars, check A1c -Continue with Neurontin Atrial fibrillation, chronic - Not on chronic rate controllig medications - continue xarelto HLD - statin Morbid obesity with BMI 44.8 - structured outpatient weight loss GERD - PPI Hypothyroidism - Synthroid DVT prophylaxis: Xarelto Discussed with: patient, nursing, wound care Anticipated discharge: 1-[address]: [facility] A total of 25 minutes was spent on the care of this complex patient more than 50% of the time was spent in counseling and care coordination.
[2019-06-05] MEDS: ATORVASTATIN 10 MG TAB PO SCH (20:19)
[2019-06-05 20:26] LABS: Glucose,Whole Blood 96 mg/dL (75-99)
[2019-06-05] MEDS: DORZOLAMIDE-TIMOLOL 2.23%/0.68 10ML BTL BOTH EYES SCH (20:29)
[2019-06-05] MEDS: MECLIZINE 25 MG TAB PO SCH (20:29)
[2019-06-05] MEDS: LATANOPROST 0.005% OPHTH DROPS 2.5 ML BTL BOTH EYES SCH (20:30)
[2019-06-05] MEDS ORDERED: GABAPENTIN 300 MG CAP PO SCH (22:00)
[2019-06-05 22:39] VITALS: RESP 16
[2019-06-06] MEDS: CLINDAMYCIN 300 MG in DEXTROSE 5% IN WATER 50 ML IVPB SCH ×6 (02:58→14:56)
[2019-06-06] MEDS: LEVOTHYROXINE 50 MCG TAB PO SCH (05:51)
[2019-06-06 07:18] LABS: Glucose,Whole Blood 115 mg/dL (75-99)
[2019-06-06] MEDS: INSULIN ASPART (NovoLOG) 100 UNIT/ML VIAL SQ SCH ×2 (07:26→11:51)
[2019-06-06] MEDS ORDERED: PANTOPRAZOLE 40 MG TABLET PO SCH (07:30)
[2019-06-06] MEDS ORDERED: TIMOLOL 0.5% OPHTH SOLN (PF) 0.2 ML DROPERETTE BOTH EYES SCH (09:00)
[2019-06-06] MEDS: cycloSPORINE 0.05% OPHTH 0.4 ML DROPERETTE BOTH EYES SCH (09:30)
[2019-06-06] MEDS: traMADol 50 MG TAB PO SCH (09:31)
[2019-06-06] MEDS: FUROSEMIDE 20 MG TAB PO SCH (09:31)
[2019-06-06] MEDS: GABAPENTIN 300 MG CAP PO SCH ×3 (09:32→15:03)
[2019-06-06] MEDS: MECLIZINE 25 MG TAB PO SCH (09:32)
[2019-06-06] MEDS: DORZOLAMIDE-TIMOLOL 2.23%/0.68 10ML BTL BOTH EYES SCH (09:37)
[2019-06-06 11:32] LABS: Glucose,Whole Blood 105 mg/dL (75-99)
[2019-06-06] MEDS ORDERED: traMADol 50 MG TAB PO PRN (12:35)
[2019-06-06 13:59] VITALS: BP 117/74; PULSE 62; TEMP 97.7
[2019-06-06 14:31] LABS: Hemoglobin A1C 6.3 % (4.0-6.0)
--- NOTE | 2019-06-06 14:35 | P.DS ---
Providers Date of admission: 06/04/19 12:49 Expected date of discharge: 06/06/19 Attending physician: Ti Rice MD Consults: 06/04/19 17:10 Consult Physician Routine Consulting Provider: Tay Pascual Consult Reason/Comments: marysol ulcers Do you want consulting provider notified?: Already Contacted Primary care physician: Ti Rice MD Hospital Course: Discharge Diagnosis: Cellulitis with infected right ankle diabetic ulcer Diabetes mellitus type 2, suboptimal control and diabetic neuropathy Atrial fibrillation, chronic HLD Morbid obesity with BMI 44.8 GERD Hypothyroidism Hospital Course: Patient is a 63-year-old female with past medical history of atrial fibrillation, GERD, hypertension, osteoarthritis, and an open wound on the right foot and left lower extremity was following with Dr. Pascual. She was seen by Dr. Pascual recommended for direct admission secondary to cellulitis and infected diabetic wound right ankle. Patient had been seen at the wound clinic for approximately 3 weeks. She was not having any improvement in her wound, and they were beginning to ooze. On arrival here her vital signs are within normal limits. Laboratory analysis was unremarkable other than elevated glucose. Vascular surgery was consulted. She was started on clindamycin for possible cellulitis. On 06/05 a dressing was placed to her right lower extremity which will be kept in place until 06/06/19. The patient had Will apply absorptive silver her right lower extremity cover with dry gauze, roll with Curlex, and place an elastic Jack wrap to bilateral lower extremity. She should change the dressings on Sunday, Sunday, and Fridays. She continued to improve and was determined stable for discharge. He blood sugars normalized without intervention other than diet control. Patient seen and examined at bedside. Vital signs reviewed and stable. General: non toxic, no distress, appears at stated age Derm: Dressings in place bilateral lower extremities, warm, dry Head: atraumatic, normocephalic, symmetric Eyes: EOMI, no lid lag, anicteric sclera Mouth: no lip lesion, mucus membranes moist Cardiovascular: S1S2 reg, no murmur, positive posterior tibial pulse bilateral, Lungs: CTA bilateral, no rhonchi, no rales , no accessory muscle use Abdominal: soft, nontender to palpation, no guarding, no appreciable organomegaly Ext: no gross muscle atrophy, no edema, no contractures Psych: Alert, oriented, appropriate affect A total of 35 minutes of time were spent preparing this complex discharge summary . Patient Condition at Discharge: Stable Plan - Discharge Summary New Discharge Prescriptions: New Gabapentin [Neurontin] 600 mg PO HS #7 cap Gabapentin [Neurontin] 300 mg PO TID@0800,1200,1600 #21 cap Continue Dorzolamide-Timol 2.23%/0.68% [Cosopt] 1 drop BOTH EYES BID Furosemide [Lasix] 20 mg PO DAILY Bimatoprost [Lumigan .01% Ophth Soln] 1 drop BOTH EYES HS Changed traMADol HCL [Ultram] 50 mg PO HS #7 tab Discontinued Gabapentin [Neurontin] 300 mg PO 5XD No Action Meclizine [Antivert] 25 mg PO BID Atorvastatin [Lipitor] 10 mg PO HS Omeprazole Magnesium [PriLOSEC OTC] 20 mg PO Q48H Rivaroxaban [Xarelto] 20 mg PO AC-SUPPER Acetaminophen [Tylenol Extra Strength] 1,500 mg PO Q6H PRN PRN Reason: Pain cycloSPORINE [Restasis] 1 drop BOTH EYES DAILY Ibuprofen 200 mg PO HS Levothyroxine Sodium [Synthroid] 50 mcg PO DAILY Timolol 0.5% Ophth Gel Forming [Timoptic-Xe 0.5% Gel Form] 1 drops BOTH EYES DAILY Discharge Medication List Atorvastatin [Lipitor] 10 mg PO HS 05/14/17 [History] Meclizine [Antivert] 25 mg PO BID 05/14/17 [History] Omeprazole Magnesium [PriLOSEC OTC] 20 mg PO Q48H 05/14/17 [History] Rivaroxaban [Xarelto] 20 mg PO AC-SUPPER 08/22/17 [History] Acetaminophen [Tylenol Extra Strength] 1,500 mg PO Q6H PRN 04/22/18 [History] Ibuprofen 200 mg PO HS 04/22/18 [History] Levothyroxine Sodium [Synthroid] 50 mcg PO DAILY 04/22/18 [History] cycloSPORINE [Restasis] 1 drop BOTH EYES DAILY 04/22/18 [History] Timolol 0.5% Ophth Gel Forming [Timoptic-Xe 0.5% Gel Form] 1 drops BOTH EYES D AILY 11/07/18 [History] Bimatoprost [Lumigan .01% Ophth Soln] 1 drop BOTH EYES HS 06/04/19 [History] Dorzolamide-Timol 2.23%/0.68% [Cosopt] 1 drop BOTH EYES BID 06/04/19 [History] Furosemide [Lasix] 20 mg PO DAILY 06/04/19 [History] Gabapentin [Neurontin] 300 mg PO TID@0800,1200,1600 #21 cap 06/06/19 [Rx] Gabapentin [Neurontin] 600 mg PO HS #7 cap 06/06/19 [Rx] traMADol HCL [Ultram] 50 mg PO HS #7 tab 06/06/19 [Rx] Follow up Appointment(s)/Referral(s): Wound Healing,Center [NON-STAFF] - 1 Week Activity/Diet/Wound Care/Special Instructions: Activity: as tolerated Diet: carb consistent, low salt Wound Care: Apply absorptive silver to her right lower extremity cover with dry gauze, roll with Curlex, and place an elastic Jack wrap to bilateral lower extremity. Change the dressings on Sunday, Sunday, and Fridays.
--- NOTE | 2019-06-11 10:37 | CDI ---
Documentation Clarification Form Date: 06/11/19 From: Mariola Vazquez Phone: If you have a question regarding this query, please contact Chantelle Talbot at [phone] between 8am and 5pm. Admit Date: 06/04/2019 12:49:00 PM Patient Name: Lorie Denton Visit Number: [id number] Discharge Date: 06/06/2019 4:00:00 PM ATTENTION: The Clinical Documentation Specialists (CDI) and [facility] Coding Staff appreciate your assistance in clarifying documentation. Please respond to the clarification below the line at the bottom and electronically sign. The CDI & [facility] Coding staff will review the response and follow-up if needed. Please note: Queries are made part of the Legal Health Record. If you have any questions, please contact the author of this message via ITS. Dr. Fatou Raymond The patient presented with cellulitis with infected diabetic ulcer of the right ankle. History/Risk Factors: Diabetes, chronic ulcers of bilateral ankles and bilateral heels, varicosities of bilateral lower extremities. Clinical Indicators: Open wound with oozing and surrounding erythema Lab findings: Per discharge summary, laboratory analysis was unremarkable other than elevated glucose. Vital Signs: T. 97.6, P. 82, R. 16, BP 127/85 Treatment: IV Clindamycin In your professional opinion, can you please clarify if the cellulitis was? Associated with diabetes mellitus Other, please specify Unable to determine related to diabetes MTDD
== END 2019-06-06 16:00 | DRG 638 ==
LOC: 4MS4W 12:49
PROVIDERS: ADMIT Internal Medicine; ATTEND Internal Medicine
DX: E11.628 Type 2 diabetes mellitus with other skin complications (principal); L03.115 Cellulitis of right lower limb; L97.319 Non-pressure chronic ulcer of right ankle with unspecified severity; L97.429 Non-pressure chronic ulcer of left heel and midfoot with unspecified severity; L97.419 Non-pressure chronic ulcer of right heel and midfoot with unspecified severity; L97.329 Non-pressure chronic ulcer of left ankle with unspecified severity; Z68.41 Body mass index [BMI] 40.0-44.9, adult; I48.20 Chronic atrial fibrillation, unspecified; E11.42 Type 2 diabetes mellitus with diabetic polyneuropathy; I83.013 Varicose veins of right lower extremity with ulcer of ankle; I83.023 Varicose veins of left lower extremity with ulcer of ankle; I83.014 Varicose veins of right lower extremity with ulcer of heel and midfoot; I83.024 Varicose veins of left lower extremity with ulcer of heel and midfoot; E66.01 Morbid (severe) obesity due to excess calories; E11.622 Type 2 diabetes mellitus with other skin ulcer; E11.621 Type 2 diabetes mellitus with foot ulcer; H40.9 Unspecified glaucoma; E03.9 Hypothyroidism, unspecified; E78.5 Hyperlipidemia, unspecified; G47.33 Obstructive sleep apnea (adult) (pediatric); I10 Essential (primary) hypertension; K21.9 Gastro-esophageal reflux disease without esophagitis; M19.90 Unspecified osteoarthritis, unspecified site; G89.29 Other chronic pain; M54.5 Low back pain; H50.89 Other specified strabismus; Z79.01 Long term (current) use of anticoagulants; Z79.890 Hormone replacement therapy; Z79.899 Other long term (current) drug therapy; Z87.440 Personal history of urinary (tract) infections; Z86.010 Personal history of colon polyps; Z98.42 Cataract extraction status, left eye; Z98.41 Cataract extraction status, right eye; Z96.1 Presence of intraocular lens; Z82.5 Family history of asthma and other chronic lower respiratory diseases; Z80.9 Family history of malignant neoplasm, unspecified
CPT/HCPCS: 80048; 80053; 83036; 83735; 85025; 90686

== ENCOUNTER 2020-02-04 10:14 | Observation (INO) | payer MEDICARE ==
--- NOTE | 2020-02-04 12:17 | P.CONS ---
History of Present Illness - Reason for Consult Consult date: 02/04/20 Wound care - History of Present Illness This is a 64-year-old pleasant female who lives alone who is known to the wound care center being seen on 5 [address]. for nonhealing ulcerations to the right foot. Patient seasonal care center weekly. She was in a total contact cast but due to living alone with no assistance she was not able to continue with the cast. During that time patient did sustain a fall with no injuries. Patient has been and a 3 layer compression wrap since the cast. However due to no extra help at home patient cannot offload. Patient was admitted to the hospital for cellulitis. Review of Systems Review Of Systems: Constitutional: No fever, no chills, no night sweats. No weight change. No weakness, fatigue or lethargy. No daytime sleepiness. Integumentary:reports wounds, no lesions. No rash or pruritus. No unusual bruising. No change in hair or nails. Past Medical History Past Medical History: Atrial Fibrillation, Diabetes Mellitus, GERD/Reflux, Hypertension, Neurologic Disorder, Osteoarthritis (OA), Sleep Apnea/CPAP/BIPAP, Thyroid Disorder Additional Past Medical History / Comment(s): chronic back pain and neuropathy, open wound right foot, pre-diabetic, neuropathy bilateral feet and right lower leg, chronic lower back pain, lower extremity edema, MICHELLE- tried device but could not tolerate it , UTI, benign colon polyps, vertigo, bilat glaucoma/dry eyes, R eye weak muscles, hypothyroid History of Any Multi-Drug Resistant Organisms: None Reported Past Surgical History: Orthopedic Surgery Additional Past Surgical History / Comment(s): Right ankle fracture with ORIF and hardware has since been removed, right foot tarsal release, colonoscopy with polypectomies, bilate cataract removal/ lens implants. Past Anesthesia/Blood Transfusion Reactions: No Reported Reaction Past Psychological History: No Psychological Hx Reported Additional Psychological History / Comment(s): Pt. resides alone in an apartment. She is non-weight bearing to the right foot. uses a walker at home. She does not drive, she has family that can drive her places. Smoking Status: Never smoker Past Alcohol Use History: None Reported Past Drug Use History: None Reported - Past Family History Mother Family Medical History: Cancer, Renal Disease Additional Family Medical History / Comment(s): colon Father Family Medical History: COPD Additional Family Medical History / Comment(s): father of ephysema at age 74 yrs. Medications and Allergies Home Medications Medication Instructions Recorded Confirmed Type Atorvastatin [Lipitor] 10 mg PO HS 05/14/17 02/04/20 History Meclizine [Antivert] 25 mg PO BID 05/14/17 02/04/20 History Omeprazole Magnesium [PriLOSEC OTC] 20 mg PO DAILY 05/14/17 02/04/20 History Rivaroxaban [Xarelto] 20 mg PO AC-SUPPER 08/22/17 02/04/20 History Acetaminophen [Tylenol Extra 1,500 mg PO Q6H PRN 04/22/18 02/04/20 History Strength] Ibuprofen 200 mg PO HS 04/22/18 02/04/20 History Levothyroxine Sodium [Synthroid] 50 mcg PO DAILY 04/22/18 02/04/20 History cycloSPORINE [Restasis] 1 drop BOTH EYES DAILY 04/22/18 02/04/20 History Bimatoprost [Lumigan .01% Ophth 1 drop BOTH EYES HS 06/04/19 02/04/20 History Soln] Dorzolamide-Timol 2.23%/0.68% 1 drop BOTH EYES BID 06/04/19 02/04/20 History [Cosopt] Furosemide [Lasix] 20 mg PO DAILY 06/04/19 02/04/20 History Gabapentin [Neurontin] 300 mg PO TID@0800,1200,1600 #21 06/06/19 02/04/20 Rx cap Gabapentin [Neurontin] 600 mg PO HS #7 cap 06/06/19 02/04/20 Rx traMADol HCL [Ultram] 50 mg PO HS #7 tab 06/06/19 02/04/20 Rx Metoprolol Tartrate [Lopressor] 12.5 mg PO BID 02/04/20 02/04/20 History Potassium Gluconate 99 mg PO DAILY 02/04/20 02/04/20 History Allergies Allergy/AdvReac Type Severity Reaction Status Date / Time No Known Allergies Allergy Verified 02/04/20 11:54 Physical Exam Vitals: Vital Signs Temp Pulse Resp BP Pulse Ox 02/04/20 11:05 97.6 F 50 L 16 140/66 98 Intake and Output 02/03/20 02/04/20 02/04/20 22:59 06:59 14:59 Other: Weight 95.5 kg Physical exam: General Appearance: Alert, cooperative, no distress, appears stated age. Skin: Full thickness without exposed structures wound with etiology of neuropathic ulcer nondiabetic impression R Slough is located on the right medial plantar calcaneus. The wound measures approximately 1.1 x 1.3 x 0.1 cm. The wound is fat layer exposure. There is no tunneling or undermining. There is a large amount of serous drainage noted. The wound margin is indistinct and not visible. There is medium red granulation within the wound bed. There is medium amount of necrotic tissue within the wound bed including adherent Slough. The periwound appearance exhibits callus scar and dry scaly and erythema. Full thickness without exposed structure wound with etiologies of neuropathic ulcer nondiabetic a pressure ulcer located on the right medial plantar foot. Measuring approximately 1 x 0.4 x 0.1 cm the wound is fat layer exposure There is no tunneling or undermining. There is a small amount of serous drainage noted. The wound margin is fibrotic thickened and scarred. There is a small pink granulation within the wound bed. And a large amount of necrotic tissue within the wound bed including adherent Slough. The wound appearance has erythema and induration. Full thickness without exposed structure wound with e tiologies of trauma is located in the right medial foot. Measuring 0.7 x 0.6 x 0.1 cm. The wound was fat layer exposure. There is no tunneling or undermining noted. The small amount of serous drainage noted. The wound margin is distinct with hyaline attached to the wound base. There is a large amount of pink granulation within the wound bed. There is small amount of necrotic tissue within the wound bed including Slough. The periwound exhibits callus, scarring, dry scaly, erythema and induration. The plantar ulcerations of the right foot are somewhat stagnant. all other Skin color, texture, tugor normal, no rashes or lesions. Neurologic: Alert oriented x3 Assessment and Plan (1) Cellulitis of right lower limb Current Visit: No Status: Acute Code(s): L03.115 - CELLULITIS OF RIGHT LOWER LIMB SNOMED Code(s): 723870282 (2) Non-pressure chronic ulcer of other part of right foot with fat layer exposed Current Visit: Yes Status: Acute Code(s): L97.512 - NON-PRS CHRONIC ULCER OTH PRT RIGHT FOOT W FAT LAYER EXPOSED SNOMED Code(s): 581728181 (3) Severe obesity (BMI >= 40) Current Visit: No Status: Acute Code(s): E66.01 - MORBID (SEVERE) OBESITY DUE TO EXCESS CALORIES SNOMED Code(s): 023827557 Plan: Absorptive silver to the ulceration to the 3 layer compression wrap is in place. Keep wrap in place for one week. The patient will return to the wound care center next week on February 10 at 9:00. Patient to remain total nonweightbearing to the right foot. Wound cultures were sent. Patient may require ECF placement for rehab to assist with nonweightbearing status. Thank you family for the consultation. Any questions please contact the wound care center DNP note has been reviewed and discussed with Dr. Pascual and the impression and plan of care has been directed as dictated.
[2020-02-04] MEDS ORDERED: ACETAMINOPHEN TAB 500 MG TAB PO PRN (12:19)
[2020-02-04] MEDS ORDERED: VANCOMYCIN IV PER PHARMACY 1 EACH MISC MISCELLANE PRN (12:22)
[2020-02-04] MEDS ORDERED: VANCOMYCIN 1,500 MG in SODIUM CHLORIDE 0.9% 250 ML IVPB ONE (13:00)
[2020-02-04 13:25] LABS: Calcium 9.3 mg/dL (8.4-10.2); Potassium 4.9 mmol/L (3.5-5.1)
[2020-02-04] MEDS ORDERED: PIPERACILLIN-TAZOBACTAM 3.375 GM in SODIUM CHLORIDE 0.9% 100 ML IVPB SCH (16:00)
[2020-02-04] MEDS: SODIUM CHLORIDE 0.9% 1,000 ML IV SCH (16:06)
[2020-02-04] MEDS: RIVAROXABAN 20 MG TAB PO SCH (17:23)
[2020-02-04] MEDS: GABAPENTIN 300 MG CAP PO SCH ×2 (17:23→21:53)
[2020-02-04] MEDS ORDERED: IBUPROFEN 200 MG TAB PO SCH (21:00)
[2020-02-04] MEDS: ATORVASTATIN 10 MG TAB PO SCH (21:53)
[2020-02-04] MEDS: MECLIZINE 25 MG TAB PO SCH (21:54)
[2020-02-04] MEDS: traMADol 50 MG TAB PO SCH (21:54)
[2020-02-04] MEDS: METOPROLOL TARTRATE 12.5 MG TAB PO SCH (22:04)
[2020-02-04] MEDS ORDERED: IBUPROFEN 400 MG TAB PO SCH (22:06)
[2020-02-04] MEDS: DORZOLAMIDE-TIMOLOL 2.23%/0.68 10ML BTL BOTH EYES SCH (22:54)
[2020-02-04] MEDS: LATANOPROST 0.005% OPHTH DROPS 2.5 ML BTL BOTH EYES SCH (22:54)
--- NOTE | 2020-02-04 23:04 | P.HPIM ---
History of Present Illness H&P Date: 02/04/20 Chief Complaint: Severe cellulitis of the lower extremity, nonhealing ulcer of the right melany 64-year-old obese one of Dr. Lam patient who has been seen at the wound clinic for several weeks for nonhealing ulcer in the right foot secondary to diabetic foot stasis and lack of circulation. Patient apparently developed to have worsening cellulitis pain and discomfort irritation and redness around the lower extremity from the knee down. When she was in the wound center today with the severe cellulitis and nonhealing ulcer patient was admitted to the hospital was started on IV antibiotics consult infectious disease and wound center patient will require further management and treatment might require further assisted living with IV antibiotic for. This time to use her nonhealing ulcer and severe colitis. Review of Systems CONSTITUTIONAL: Well-developed no acute respiratory distress. Morbidly obese EYES: No icterus sclerae, no conjunctivitis. EARS, NOSE, MOUTH, THROAT, and FACE: No sore throat, lymphadenopathy, carotid bruits or deformity. RESPIRATORY: No SOB cough or wheezes. CARDIOVASCULAR: No CP, Palpitation, PND, Orthopnea, or angina. GASTROINTESTINAL: No Abd pain, Nausea or vomiting, no Diarrhea or constipation, No GI Bleed, no distention or masses. GENITOURINARY: Negative for Hematuria or UTI, no kidney stones. INTEGUMENT/BREAST: Severe arthritis, lower extremity edema, with nonhealing ulcer on the right foot and bilateral [place] lightest. HEMATOLOGIC/LYMPHATIC: Negative for bleed or purpura. MUSCULOSKELTAL: Negative for Myalgia or arthralgia. NEURLOGICAL: No LOC, Sz or syncope, blurred vision dizziness or abnormality.. BEHAVIORAL/PSYCH: Negative. ENDOCRINE: Negative. Past Medical History Past Medical History: Atrial Fibrillation, Diabetes Mellitus, GERD/Reflux, Hypertension, Neurologic Disorder, Osteoarthritis (OA), Sleep Apnea/CPAP/BIPAP, Thyroid Disorder Additional Past Medical History / Comment(s): chronic back pain and neuropathy, open wound right foot, pre-diabetic, neuropathy bilateral feet and right lower leg, chronic lower back pain, lower extremity edema, MICHELLE- tried device but could not tolerate it , UTI, benign colon polyps, vertigo, bilat glaucoma/dry eyes, R eye weak muscles, hypothyroid History of Any Multi-Drug Resistant Organisms: None Reported Past Surgical History: Orthopedic Surgery Additional Past Surgical History / Comment(s): Right ankle fracture with ORIF and hardware has since been removed, right foot tarsal release, colonoscopy with polypectomies, bilate cataract removal/ lens implants. Past Anesthesia/Blood Transfusion Reactions: No Reported Reaction Past Psychological History: No Psychological Hx Reported Additional Psychological History / Comment(s): Pt. resides alone in an apartment. She is non-weight bearing to the right foot. uses a walker at home. She does not drive, she has family that can drive her places. Smoking Status: Never smoker Past Alcohol Use History: None Reported Past Drug Use History: None Reported - Past Family History Mother Family Medical History: Cancer, Renal Disease Additional Family Medical History / Comment(s): colon Father Family Medical History: COPD Additional Family Medical History / Comment(s): father of ephysema at age 74 yrs. Medications and Allergies Home Medications Medication Instructions Recorded Confirmed Type Atorvastatin [Lipitor] 10 mg PO HS 05/14/17 02/04/20 History Meclizine [Antivert] 25 mg PO BID 05/14/17 02/04/20 History Omeprazole Magnesium [PriLOSEC OTC] 20 mg PO DAILY 05/14/17 02/04/20 History Rivaroxaban [Xarelto] 20 mg PO AC-SUPPER 08/22/17 02/04/20 History Acetaminophen [Tylenol Extra 1,500 mg PO Q6H PRN 04/22/18 02/04/20 History Strength] Ibuprofen 200 mg PO HS 04/22/18 02/04/20 History Levothyroxine Sodium [Synthroid] 50 mcg PO DAILY 04/22/18 02/04/20 History cycloSPORINE [Restasis] 1 drop BOTH EYES DAILY 04/22/18 02/04/20 History Bimatoprost [Lumigan .01% Ophth 1 drop BOTH EYES HS 06/04/19 02/04/20 History Soln] Dorzolamide-Timol 2.23%/0.68% 1 drop BOTH EYES BID 06/04/19 02/04/20 History [Cosopt] Furosemide [Lasix] 20 mg PO DAILY 06/04/19 02/04/20 History Gabapentin [Neurontin] 300 mg PO TID@0800,1200,1600 #21 06/06/19 02/04/20 Rx cap Gabapentin [Neurontin] 600 mg PO HS #7 cap 06/06/19 02/04/20 Rx traMADol HCL [Ultram] 50 mg PO HS #7 tab 06/06/19 02/04/20 Rx Metoprolol Tartrate [Lopressor] 12.5 mg PO BID 02/04/20 02/04/20 History Potassium Gluconate 99 mg PO DAILY 02/04/20 02/04/20 History Allergies Allergy/AdvReac Type Severity Reaction Status Date / Time No Known Allergies Allergy Verified 02/04/20 11:54 Physical Exam Vitals: Vital Signs Temp Pulse Resp BP Pulse Ox 02/04/20 20:30 98.2 F 50 L 18 127/71 98 02/04/20 11:05 97.6 F 50 L 16 140/66 98 Intake and Output 02/04/20 02/04/20 02/04/20 06:59 14:59 22:59 Other: Voiding Method Toilet # Voids 2 2 # Bowel Movements 1 Weight 95.5 kg General Appearance: Alert, cooperative, no distress, appears stated age. Morbidly obese Neck HEENT: Supple, no lymphadenopathy, no thyroid enlargement, no carotid b ruits. Lungs: Decreased breath some bilateral rhonchi no crackles or wheezes. Chest Wall: Decrease expansion with deep inspiration no tenderness and no deformity was found on exam, no costochondral pain or discomfort. Heart: Regular rate and rhythm, S1, S2 normal, no murmur, rub or gallop. Mild PVC. Back: Symmetric, no curvature, ROM normal, no CVA tenderness. Abdomen: Soft, non-tender, bowel sounds active all four quadrants, no masses, no organomegaly. Extremities: Significant edema with significant redness and cellulitis bilaterally worse in the right leg from the knee down with ulcerated area on the right medial plantar calcaneus measure 1.5 time 1.5 cm the exposure as a stage II.. Pulses: Decrease pulse bilaterally significant edema. Skin: Skin color, texture, tugor normal, no rashes or lesions. Neurologic: Alert oriented x3 cranial nerves II through XII intact, no motor deficit, not been able to do gait exam. Results CBC & Chem 7: 02/05/20 06:20 02/05/20 06:20 Labs: Abnormal Lab Results - Last 24 Hours (Table) 02/04/20 Range/Units 12:49 BUN 20 H (7-17) mg/dL Thrombosis Risk Factor Assmnt - DVT/VTE Prophylaxis DVT/VTE Prophylaxis: Pharmacologic Prophylaxis ordered, Mechanical Prophylaxis ordered - Choose All That Apply Any of the Below Risk Factors Present?: Yes Each Factor Represents 1 point: Swollen legs (current) Other Risk Factors: Yes Other congenital or acquired thrombophilia - If yes, enter type in comment: No Thrombosis Risk Factor Assessment Total Risk Factor Score: 1 Thrombosis Risk Factor Assessment Level: Low Risk Assessment and Plan Assessment: 1 severe cellulitis of the lower extremity worse than the right side left side: Patient was started on vancomycin, will consult infectious disease and one center also continue patient on Zosyn at this point. 2 severe nonhealing ulcer in the right foot area: Continue topical care continue absorptive silver to the ulcerated area and 3 layer of compression wrap was done by wound clinic we'll continue current management patient might require longer term care known of the ECF. 3 A. fib with RVR: Patient remain on anticoagulation with Xarelto 20 mg a day pulse rate is under control currently on metoprolol titrate 12.5 mg twice a day. 4 chronic edema: Remain on furosemide 20 mg a day. 5 hyperlipidemia: Remain on Lipitor 10 mg a day. 6 severe neuropathy: Has been on gabapentin 300 mg 3 times a day. 7 hypothyroidism: Continue patient on levothyroxine 50 g daily. 8 chronic pain syndrome: Continue patient on Ultram 50 mg up to 3 times a day as needed. 9 DVT prophylaxis: Remain on Xarelto. 10 GI prophylaxis: Remain on pantoprazole 40 mg daily. CODE STATUS: Full code. Admit patient to inpatient status for more than 2 nights.
[2020-02-05] MEDS: PIPERACILLIN-TAZOBACTAM 3.375 GM in SODIUM CHLORIDE 0.9% 100 ML IVPB SCH ×3 (02:52→19:12)
[2020-02-05] MEDS: VANCOMYCIN 1,500 MG in SODIUM CHLORIDE 0.9% 250 ML IVPB SCH (05:51)
[2020-02-05] MEDS: LEVOTHYROXINE 50 MCG TAB PO SCH (05:51)
[2020-02-05 06:58] LABS: HCT 35.5 % (34.0-46.0); HGB 11.4 gm/dL (11.4-16.0); Hypochromasia Marked; MCH 31.6 pg (25.0-35.0); MCHC 32.2 g/dL (31.0-37.0); MCV 98.3 fL (80.0-100.0); Mean Platelet Volume 7.6; Platelet Count 394 k/uL (150-450); RBC 3.61 m/uL (3.80-5.40)
[2020-02-05 07:30] LABS: Albumin 2.8 g/dL (3.5-5.0); C Reactive Protein 25.7 mg/L (<10.0); Calcium 9.1 mg/dL (8.4-10.2); Potassium 4.5 mmol/L (3.5-5.1); Total Bilirubin 0.5 mg/dL (0.2-1.3); Total Protein 6.5 g/dL (6.3-8.2)
[2020-02-05 08:24] LABS: Erythrocyte Sedimentation Rate 67 mm/hr (0-20)
[2020-02-05] MEDS ORDERED: NON FORMULARY DRUG (Potassium Gluconate [Potassium Gluconate] 99 MG) PO SCH (09:00)
[2020-02-05] MEDS: MECLIZINE 25 MG TAB PO SCH ×2 (10:36→21:58)
[2020-02-05] MEDS: PANTOPRAZOLE 40 MG TABLET PO SCH (10:36)
[2020-02-05] MEDS: GABAPENTIN 300 MG CAP PO SCH ×4 (10:36→21:56)
[2020-02-05] MEDS: DORZOLAMIDE-TIMOLOL 2.23%/0.68 10ML BTL BOTH EYES SCH ×2 (10:37→21:56)
[2020-02-05] MEDS: FUROSEMIDE 20 MG TAB PO SCH (10:37)
[2020-02-05] MEDS: METOPROLOL TARTRATE 12.5 MG TAB PO SCH ×2 (10:39→21:58)
[2020-02-05] MEDS: cycloSPORINE 0.05% OPHTH 0.4 ML DROPERETTE BOTH EYES SCH (10:40)
--- NOTE | 2020-02-05 10:58 | P.CONS ---
History of Present Illness - Reason for Consult Consult date: 02/05/20 wound care - History of Present Illness This is a 64-year-old pleasant female who lives alone who is known to the wound care center being seen on 5 [address]. for nonhealing ulcerations to the right foot. Patient seasonal care center weekly. She was in a total contact cast but due to living alone with no assistance she was not able to continue with the cast. During that time patient did sustain a fall with no injuries. Patient has been and a 3 layer compression wrap since the cast. However due to no extra help at home patient cannot offload. Patient was admitted to the hospital for cellulitis. 02/05/2020: Patient is complaining of the wrap cutting into her leg. Extra foam has been applied to the superior aspect of the wrap. Review of Systems Review Of Systems: Constitutional: No fever, no chills, no night sweats. No weight change. No weakness, fatigue or lethargy. No daytime sleepiness. Integumentary:reports wounds, no lesions. No rash or pruritus. No unusual b ruising. No change in hair or nails. Past Medical History Past Medical History: Atrial Fibrillation, Diabetes Mellitus, GERD/Reflux, Hypertension, Neurologic Disorder, Osteoarthritis (OA), Sleep Apnea/CPAP/BIPAP, Thyroid Disorder Additional Past Medical History / Comment(s): chronic back pain and neuropathy, open wound right foot, pre-diabetic, neuropathy bilateral feet and right lower leg, chronic lower back pain, lower extremity edema, MICHELLE- tried device but could not tolerate it , UTI, benign colon polyps, vertigo, bilat glaucoma/dry eyes, R eye weak muscles, hypothyroid History of Any Multi-Drug Resistant Organisms: None Reported Past Surgical History: Orthopedic Surgery Additional Past Surgical History / Comment(s): Right ankle fracture with ORIF and hardware has since been removed, right foot tarsal release, colonoscopy with polypectomies, bilate cataract removal/ lens implants. Past Anesthesia/Blood Transfusion Reactions: No Reported Reaction Past Psychological History: No Psychological Hx Reported Additional Psychological History / Comment(s): Pt. resides alone in an apartment. She is non-weight bearing to the right foot. uses a walker at home. S he does not drive, she has family that can drive her places. Smoking Status: Never smoker Past Alcohol Use History: None Reported Past Drug Use History: None Reported - Past Family History Mother Family Medical History: Cancer, Renal Disease Additional Family Medical History / Comment(s): colon Father Family Medical History: COPD Additional Family Medical History / Comment(s): father of ephysema at age 74 yrs. Medications and Allergies Home Medications Medication Instructions Recorded Confirmed Type Atorvastatin [Lipitor] 10 mg PO HS 05/14/17 02/04/20 History Meclizine [Antivert] 25 mg PO BID 05/14/17 02/04/20 History Omeprazole Magnesium [PriLOSEC OTC] 20 mg PO DAILY 05/14/17 02/04/20 History Rivaroxaban [Xarelto] 20 mg PO AC-SUPPER 08/22/17 02/04/20 History Acetaminophen [Tylenol Extra 1,500 mg PO Q6H PRN 04/22/18 02/04/20 History Strength] Ibuprofen 200 mg PO HS 04/22/18 02/04/20 History Levothyroxine Sodium [Synthroid] 50 mcg PO DAILY 04/22/18 02/04/20 History cycloSPORINE [Restasis] 1 drop BOTH EYES DAILY 04/22/18 02/04/20 History Bimatoprost [Lumigan .01% Ophth 1 drop BOTH EYES HS 06/04/19 02/04/20 History Soln] Dorzolamide-Timol 2.23%/0.68% 1 drop BOTH EYES BID 06/04/19 02/04/20 History [Cosopt] Furosemide [Lasix] 20 mg PO DAILY 06/04/19 02/04/20 History Gabapentin [Neurontin] 300 mg PO TID@0800,1200,1600 #21 06/06/19 02/04/20 Rx cap Gabapentin [Neurontin] 600 mg PO HS #7 cap 06/06/19 02/04/20 Rx traMADol HCL [Ultram] 50 mg PO HS #7 tab 06/06/19 02/04/20 Rx Metoprolol Tartrate [Lopressor] 12.5 mg PO BID 02/04/20 02/04/20 History Potassium Gluconate 99 mg PO DAILY 02/04/20 02/04/20 History Allergies Allergy/AdvReac Type Severity Reaction Status Date / Time No Known Allergies Allergy Verified 02/04/20 11:54 Physical Exam Vitals: Vital Signs Temp Pulse Resp BP Pulse Ox 02/05/20 05:28 98 F 52 L 16 102/68 99 02/04/20 20:30 98.2 F 50 L 18 127/71 98 02/04/20 11:05 97.6 F 50 L 16 140/66 98 Intake and Output 02/04/20 02/05/20 02/05/20 22:59 06:59 14:59 Other: Voiding Method Toilet Toilet # Voids [address]. Irritation is noted to the superior aspect of the wrap. Results CBC & Chem 7: 02/05/20 06:20 02/05/20 06:20 Labs: Abnormal Lab Results - Last 24 Hours (Table) 02/04/20 02/05/20 02/05/20 Range/Units 12:49 06:20 06:20 RBC 3.61 L (3.80-5.40) m/uL ESR 67 H (0-20) mm/hr Chloride 108 H (98-107) mmol/L BUN 20 H (7-17) mg/dL C-Reactive Protein 25.7 H (<10.0) mg/L Albumin 2.8 L (3.5-5.0) g/dL Assessment and Plan (1) Cellulitis of right lower limb Current Visit: No Status: Acute Code(s): L03.115 - CELLULITIS OF RIGHT LOWER LIMB SNOMED Code(s): 453631226 (2) Non-pressure chronic ulcer of other part of right foot with fat layer exposed Current Visit: Yes Status: Acute Code(s): L97.512 - NON-PRS CHRONIC ULCER OTH PRT RIGHT FOOT W FAT LAYER EXPOSED SNOMED Code(s): 689102236 (3) Severe obesity (BMI >= 40) Current Visit: No Status: Acute Code(s): E66.01 - MORBID (SEVERE) OBESITY DUE TO EXCESS CALORIES SNOMED Code(s): 159801892 Plan: 3 layer compression wrap will be removed today by the wound care center. We will continue with the absorptive silver total contact cast applied. The total contact cast was not applied initially due to the patient's home situation. Since the plan is for rehab is post discharge plan and the patient will be in a safe environment the total contact cast may be applied. Keep total contact cast in place for 1 week. The patient will return to the wound care center next week on February 10 at 9:00. Patient to remain total nonweightbearing to the right foot. Wound cultures were sent. Patient may require ECF placement for rehab to assist with nonweightbearing status. Thank you family for the consultation. Any questions please contact the wound care center DNP note has been reviewed and discussed with Dr. Pascual and the impression and plan of care has been directed as dictated.
--- NOTE | 2020-02-05 13:14 | P.PN ---
Subjective Progress Note Date: 02/05/20 64-year-old obese one of Dr. Lam patient who has been seen at the wound clinic for several weeks for nonhealing ulcer in the right foot secondary to diabetic foot stasis and lack of circulation. Patient apparently developed to have worsening cellulitis pain and discomfort irritation and redness around the lower extremity from the knee down. When she was in the wound center today with the severe cellulitis and nonhealing ulcer patient was admitted to the hospital was started on IV antibiotics consult infectious disease and wound center patient will require further management and treatment might require further assisted living with IV antibiotic for. This time to use her nonhealing ulcer and severe colitis. 02/04: Patient is seen today in recheck. She denies any new complaints. She does feel that her dressing is a little tight and wound team has been notified and will recheck. Patient has been afebrile, heart rate 52, blood pressure 102/68, pulse ox 99% on room air. Repeat blood work reveals WBC 8, hemoglobin 11.4, platelet count 394. Chloride 108 electrolytes renal function and liver function tests within normal limits. C-reactive protein is 25.7 and sed rate 67. Albumin 2.8. PT and OT consults in place. Social work is following for discharge to [facility]. COVID-19 test ordered today with anticipation will be back by tomorrow. Patient is planning for discharge to [facility] for subacute rehab. Objective - Vital Signs Vital signs: Vital Signs Temp 98 F 02/05/20 05:28 Pulse 52 L 02/05/20 05:28 Resp 16 02/05/20 05:28 BP 102/68 02/05/20 05:28 Pulse Ox 99 02/05/20 05:28 Intake & Output 02/04/20 02/05/20 02/05/20 18:59 06:59 18:59 Weight 95.5 kg Other: Voiding Method Toilet Toilet # Voids 2 2 # Bowel Movements 1 - Exam Review of Systems CONSTITUTIONAL: Well-developed no acute respiratory distress. Morbidly obese area denies fever, denies chills. EYES: No icterus sclerae, no conjunctivitis. EARS, NOSE, MOUTH, THROAT, and FACE: No sore throat, lymphadenopathy, carotid bruits or deformity. RESPIRATORY: No SOB cough or wheezes. CARDIOVASCULAR: No CP, Palpitation, PND, Orthopnea, or angina. GASTROINTESTINAL: No Abd pain, Nausea or vomiting, no Diarrhea or constipation, No GI Bleed, no distention or masses. GENITOURINARY: Negative for Hematuria or UTI, no kidney stones. INTEGUMENT/BREAST: Severe arthritis, lower extremity edema, with nonhealing u lcer on the right foot and bilateral Landry lightest. HEMATOLOGIC/LYMPHATIC: Negative for bleed or purpura. MUSCULOSKELTAL: Negative for Myalgia or arthralgia. NEURLOGICAL: No LOC, Sz or syncope, blurred vision dizziness or abnormality.. BEHAVIORAL/PSYCH: Negative. ENDOCRINE: Negative. Physical Examination Gen: This is a 64-year-old female. Patient is resting in recliner appears to be comfortable and in no acute distress. HEENT: Head is atraumatic, normocephalic. Pupils equal, round. Sclerae is anicteric. NECK: Supple. No JVD. No lymphadenopathy. No thyromegaly. LUNGS: Clear to auscultation. No wheezes or rhonchi. No intercostal retractions. HEART: Regular rate and rhythm. No murmur. ABDOMEN: Soft. Bowel sounds are present. No masses. No tenderness. EXTREMITIES: Erythema to the lower extremities more so on the right. Dressing in place on the right lower leg performed by Wound Center. NEUROLOGICAL: Patient is awake, alert and oriented x3. Cranial nerves 2 through 12 are grossly intact. - Labs CBC & Chem 7: 02/05/20 06:20 02/05/20 06:20 Labs: Abnormal Lab Results - Last 24 Hours (Table) 02/04/20 02/05/20 02/05/20 Range/Units 12:49 06:20 06:20 RBC 3.61 L (3.80-5.40) m/uL ESR 67 H (0-20) mm/hr Chloride 108 H (98-107) mmol/L BUN 20 H (7-17) mg/dL C-Reactive Protein 25.7 H (<10.0) mg/L Albumin 2.8 L (3.5-5.0) g/dL Assessment and Plan Plan: 1 severe cellulitis of the lower extremity worse than the right side left side: Patient was started on vancomycin, will consult infectious disease and Wound center also continue patient on Zosyn at this point. Patient follows with Dr. Pascual in the wound healing Center. 2 severe nonhealing ulcer in the right foot area: Continue topical care continue absorptive silver to the ulcerated area and 3 layer of compression wrap was done by wound clinic we'll continue current management patient might require longer term care known of the ECF. 3 A. fib with RVR: Patient remain on anticoagulation with Xarelto 20 mg a day pulse rate is under control currently on metoprolol titrate 12.5 mg twice a day. 4 chronic edema: Remain on furosemide 20 mg a day. 5 hyperlipidemia: Remain on Lipitor 10 mg a day. 6 severe neuropathy: Has been on gabapentin 300 mg 3 times a day. 7 hypothyroidism: Continue patient on levothyroxine 50 g daily. 8 chronic pain syndrome: Continue patient on Ultram 50 mg up to 3 times a day as needed. 9 DVT prophylaxis: Remain on Xarelto. 10 GI prophylaxis: Remain on pantoprazole 40 mg daily. 11 COVID-19 testing ordered. CODE STATUS: Full code. Discharge plan: [place] on Sunday Impression and plan of care have been directed as dictated by the signing physician. Susanne Schofield nurse practitioner acting as scribe for signing physician.
--- NOTE | 2020-02-05 13:49 | P.PCN ---
Date of Procedure: 02/05/20 Procedure(s) Performed: Provider: Daniele Pre-and postop diagnosis : Nonpressure chronic ulcer of other part of right foot with fatty layer exposure with pressure component, cellulitis of right limb Procedure: Placement of right total contact cast Procedure: With the patient in supine position, we first placed the thinwall stockinette with the upper portion at the top of the patella. Redundancy was taped to the dorsum of the foot. We then placed the felt pad, taping it over the tibia, dorsum of the foot, plantar aspect of the foot, and Achilles tendon. Corners were cut at the heel. The disks were taped over the malleoli. We then placed the heavy fishnet stockinette with the upper portion at the lower margin of the patella. Redundancy was taped to the dorsum of the foot. The patient was then placed in prone position. Cast material was wetted and rolled onto the foot and leg. The upper edges of the stockinettes were rolled over the top. Wrinkles were smoothed out. Redundancy was smoothed onto the dorsum of the foot. When the cast was hardened, patient was placed in the walking boot. Patient tolerated the procedure well.
[2020-02-05] MEDS: SODIUM CHLORIDE 0.9% 1,000 ML IV SCH (16:39)
[2020-02-05] MEDS: RIVAROXABAN 20 MG TAB PO SCH (16:40)
[2020-02-05] MEDS: ATORVASTATIN 10 MG TAB PO SCH (21:55)
[2020-02-05] MEDS: LATANOPROST 0.005% OPHTH DROPS 2.5 ML BTL BOTH EYES SCH (21:57)
[2020-02-05] MEDS: traMADol 50 MG TAB PO SCH (21:58)
[2020-02-06] MEDS: PIPERACILLIN-TAZOBACTAM 3.375 GM in SODIUM CHLORIDE 0.9% 100 ML IVPB SCH (03:16)
[2020-02-06 05:48] VITALS: TEMP 98
[2020-02-06] MEDS: VANCOMYCIN 1,500 MG in SODIUM CHLORIDE 0.9% 250 ML IVPB SCH (06:05)
[2020-02-06] MEDS: LEVOTHYROXINE 50 MCG TAB PO SCH (06:05)
--- NOTE | 2020-02-06 06:55 | P.CONS ---
History of Present Illness - Reason for Consult Consult date: 02/05/20 right leg cellulitis Requesting physician: Jean Kinney - Chief Complaint right leg pain and redness x days - History of Present Illness Patient is a 64-year-old female with a past medical history significant for chronic nonhealing wound to the right continue with the patient has for couple of weeks to months and has been following with the [facility] wound care center has been treated with a total contact cast patient has been admitted directly to the hospital from the wound care center for worsening cellulitis of the right lower extremity currently patient noted to have significant swelling redness of the right leg from the knee down patient compl aining of pain to the leg to be morphologically times sharp about 6-7 out of 10 and radiation patient has been evaluated has been admitted to the hospital on admission to the hospital the patient has been afebrile patient did have a normal white count patient has been started on Zosyn and vancomycin and infectious disease was consulted for further management of antibiotic therapy patient has been evaluated by the wound care team and the patient did have a total contact cast applied to the right leg however there are no pictures in the chart that I can assess this wound or cellulitis, Review of Systems Positive point has been mentioned in HPI rest of the systems are negative Past Medical History Past Medical History: Atrial Fibrillation, Diabetes Mellitus, GERD/Reflux, Hypertension, Neurologic Disorder, Osteoarthritis (OA), Sleep Apnea/CPAP/BIPAP, Thyroid Disorder Additional Past Medical History / Comment(s): chronic back pain and neuropathy, open wound right foot, pre-diabetic, neuropathy bilateral feet and right lower leg, chronic lower back pain, lower extremity edema, MICHELLE- tried device but could not tolerate it , UTI, benign colon polyps, vertigo, bilat glaucoma/dry eyes, R eye weak muscles, hypothyroid History of Any Multi-Drug Resistant Organisms: None Reported Past Surgical History: Orthopedic Surgery Additional Past Surgical History / Comment(s): Right ankle fracture with ORIF and hardware has since been removed, right foot tarsal release, colonoscopy with polypectomies, bilate cataract removal/ lens implants. Past Anesthesia/Blood Transfusion Reactions: No Reported Reaction Past Psychological History: No Psychological Hx Reported Additional Psychological History / Comment(s): Pt. resides alone in an apartment. She is non-weight bearing to the right foot. uses a walker at home. She does not drive, she has family that can drive her places. Smoking Status: Never smoker Past Alcohol Use History: None Reported Past Drug Use History: None Reported - Past Family History Mother Family Medical History: Cancer, Renal Disease Additional Family Medical History / Comment(s): colon Father Family Medical History: COPD Additional Family Medical History / Comment(s): father of ephysema at age 74 yrs. Medications and Allergies Home Medications Medication Instructions Recorded Confirmed Type Atorvastatin [Lipitor] 10 mg PO HS 05/14/17 02/04/20 History Meclizine [Antivert] 25 mg PO BID 05/14/17 02/04/20 History Omeprazole Magnesium [PriLOSEC OTC] 20 mg PO DAILY 05/14/17 02/04/20 History Rivaroxaban [Xarelto] 20 mg PO AC-SUPPER 08/22/17 02/04/20 History Acetaminophen [Tylenol Extra 1,500 mg PO Q6H PRN 04/22/18 02/04/20 History Strength] Ibuprofen 200 mg PO HS 04/22/18 02/04/20 History Levothyroxine Sodium [Synthroid] 50 mcg PO DAILY 04/22/18 02/04/20 History cycloSPORINE [Restasis] 1 drop BOTH EYES DAILY 04/22/18 02/04/20 History Bimatoprost [Lumigan .01% Ophth 1 drop BOTH EYES HS 06/04/19 02/04/20 History Soln] Dorzolamide-Timol 2.23%/0.68% 1 drop BOTH EYES BID 06/04/19 02/04/20 History [Cosopt] Furosemide [Lasix] 20 mg PO DAILY 06/04/19 02/04/20 History Gabapentin [Neurontin] 300 mg PO TID@0800,1200,1600 #21 06/06/19 02/04/20 Rx cap Gabapentin [Neurontin] 600 mg PO HS #7 cap 06/06/19 02/04/20 Rx traMADol HCL [Ultram] 50 mg PO HS #7 tab 06/06/19 02/04/20 Rx Metoprolol Tartrate [Lopressor] 12.5 mg PO BID 02/04/20 02/04/20 History Potassium Gluconate 99 mg PO DAILY 02/04/20 02/04/20 History Allergies Allergy/AdvReac Type Severity Reaction Status Date / Time No Known Allergies Allergy Verified 02/04/20 11:54 Physical Exam Vitals: Vital Signs Temp Pulse Resp BP Pulse Ox 02/05/20 12:58 97.5 F L 44 L 16 106/62 93 L 02/05/20 05:28 98 F 52 L 16 102/68 99 02/04/20 20:30 98.2 F 50 L 18 127/71 98 Intake and Output 02/05/20 02/05/20 02/05/20 06:59 14:59 22:59 Intake Total 500 Balance 500 Intake: Intake, IV Titration 500 Amount Piperacillin-Tazobactam 3 100 .375 gm In Sodium Chloride 0.9% 100 ml @ 25 mls/hr IVPB Q8H EJNNIFER Rx#: [id number] Piperacillin-Tazobactam 3 400 .375 gm In Sodium Chloride 0.9% 100 ml @ 25 mls/hr IVPB Q8HR JENNIFER Rx# :[id number] Other: Voiding Method Toilet Toilet Toilet Bedside Commode Bedside Commode # Voids 2 3 GENERAL DESCRIPTION: Elderly female up in the chair, no distress. No tachypnea or accessory muscle of respiration use. HEENT: Shows Pallor , no scleral icterus. Oral mucous membrane is dry. NECK: Trachea central, no thyromegaly. LUNGS: Unlabored breathing. Clear to auscultation anteriorly. No wheeze or crackle. HEART: S1, S2, regular rate and rhythm. ABDOMEN: Soft, no tenderness , guarding or rigidity EXTREMITIES: Right lower extremity is currently in total contact cast review of the admitting H&P exam had did mention significant edema with significant redness and cellulitis bilateral worse in the right leg from the knee down with ulcerated area on the right medial calcaneus measuring 1.5 into 1.5 cm sKIN: No rash, no masses palpable. NEUROLOGICAL: The patient is awake, alert, oriented x3, mood and affect normal. Results CBC & Chem 7: 02/05/20 06:20 02/05/20 06:20 Labs: Abnormal Lab Results - Last 24 Hours (Table) 02/05/20 02/05/20 Range/Units 06:20 06:20 RBC 3.61 L (3.80-5.40) m/uL ESR 67 H (0-20) mm/hr Chloride 108 H (98-107) mmol/L C-Reactive Protein 25.7 H (<10.0) mg/L Albumin 2.8 L (3.5-5.0) g/dL Assessment and Plan Assessment: patient with a chronic nonhealing wound to the right medial calcaneus area for the patient is currently being treated at the wound care center admitted to hospital with right calcaneus wound infection with second cellulitis patient did have local cultures obtained at the wound care center which are now showing gram-positive in addition to gram-negative bacilli waiting for the final ID and sensitivities unfortunately I am unable to assess the severity of cellulitis on the right leg as the patient to have a total contact cast (1) Cellulitis of right lower limb Current Visit: No Status: Acute Code(s): L03.115 - CELLULITIS OF RIGHT LOWER LIMB SNOMED Code(s): 055360321 Plan: 1-vancomycin pharmacy to dose her with a target trough of 15 while watching her kidney function and Vanco trough closely. 2-discontinue Zosyn and start the per cefepime 2 g every 12 for decrease risk of nephrotoxicity 3-local care per wound care team 4-we will wait for the cultures those were done at the wound care center to finalize determine her discharge antibiotics We will follow on clinical condition and cultures to further adjust medication if needed Thank you for this consultation we will follow the patient along with you Time with Patient: Greater than 30
--- NOTE | 2020-02-06 07:44 | P.DS ---
Providers Date of admission: 02/04/20 10:58 Expected date of discharge: 02/06/20 Attending physician: Jean Kinney Consults: 02/05/20 13:12 Consult Physician Routine Consulting Provider: Blessing Bobo Consult Reason/Comments: cellulitis Do you want consulting provider notified?: Yes Primary care physician: [facility] Course: 64-year-old obese one of Dr. Lam patient who has been seen at the wound clinic for several weeks for nonhealing ulcer in the right foot secondary to diabetic foot stasis and lack of circulation. Patient apparently developed to have worsening cellulitis pain and discomfort irritation and redness around the lower extremity from the knee down. When she was in the wound center today with the severe cellulitis and nonhealing ulcer patient was admitted to the hospital was started on IV antibiotics consult infectious disease and wound center patient will require further management and treatment might require further assisted living with IV antibiotic for. This time to use her nonhealing ulcer and severe colitis. 02/04: Patient is seen today in recheck. She denies any new complaints. She does feel that her dressing is a little tight and wound team has been notified and will recheck. Patient has been afebrile, heart rate 52, blood pressure 102/68, pulse ox 99% on room air. Repeat blood work reveals WBC 8, hemoglobin 11.4, platelet count 394. Chloride 108 electrolytes renal function and liver function tests within normal limits. C-reactive protein is 25.7 and sed rate 67. Albumin 2.8. PT and OT consults in place. Social work is following for discharge to [facility]. COVID-19 test ordered today with anticipation will be back by tomorrow. Patient is planning for discharge to [facility] for subacute rehab. 02/05: Patient has been seen by Dr. Bobo with recommendations for Cefepime and Vanco and waiting culture report. Wound team has changed wound care to contact cast. Coronavirus PCR not detected. Patient has had ongoing bradycardia which she states Dr. Padma Clarke has talked to her about in the past but thought she had been stable. Heart rate this morning is 38-40. On this admission, patient has received only 1 dose of metoprolol yesterday morning. Patient has been asymptomatic. She denies any headache, lightheadedness, dizziness, syncope, chest pain or shortness of breath. Otherwise she has been afebrile, blood pressure 111/72, pulse ox 95% on room air. We have added in consult for cardiology. Awaiting final wound culture report. Patient has been accepted at [facility] and will be discharged there once all issues have been resolved. Patient has been evaluated by cardiology with no further plan. Continue to hold metoprolol. Wound cultures positive for ESBL Klebsiella and Dr. Fitzgerald is recommended ertapenem. Midline has been ordered and patient will receive a dose prior to discharge. Discharge diagnoses: 1 severe cellulitis of the lower extremity worse than the right side left side 2 severe nonhealing ulcer in the right foot area 3 A. fib, chronic 4 chronic edema 5 hyperlipidemia 6 severe neuropathy 7 hypothyroidism 8 chronic pain syndrome 9 COVID-19 infection not present. Discharge plan: [facility] under the care of Dr. Low. Impression and plan of care have been directed as dictated by the signing physician. Susanne Schofield nurse practitioner acting as scribe for signing physician. Patient Condition at Discharge: Good Plan - Discharge Summary Discharge Rx Participant: No New Discharge Prescriptions: New Ertapenem [INVanz] 1 gm IVPB Q24H #14 bag Continue Meclizine [Antivert] 25 mg PO BID Atorvastatin [Lipitor] 10 mg PO HS Omeprazole Magnesium [PriLOSEC OTC] 20 mg PO DAILY Rivaroxaban [Xarelto] 20 mg PO AC-SUPPER Acetaminophen [Tylenol Extra Strength] 1,500 mg PO Q6H PRN PRN Reason: Pain cycloSPORINE [Restasis] 1 drop BOTH EYES DAILY Ibuprofen 200 mg PO HS Levothyroxine Sodium [Synthroid] 50 mcg PO DAILY Dorzolamide-Timol 2.23%/0.68% [Cosopt] 1 drop BOTH EYES BID Furosemide [Lasix] 20 mg PO DAILY Bimatoprost [Lumigan .01% Ophth Soln] 1 drop BOTH EYES HS traMADol HCL [Ultram] 50 mg PO HS #7 tab Potassium Gluconate 99 mg PO DAILY Gabapentin [Neurontin] 600 mg PO HS #3 cap Gabapentin [Neurontin] 300 mg PO TID@0800,1200,1600 #9 cap Discontinued Metoprolol Tartrate [Lopressor] 12.5 mg PO BID Discharge Medication List Atorvastatin [Lipitor] 10 mg PO HS 05/14/17 [History] Meclizine [Antivert] 25 mg PO BID 05/14/17 [History] Omeprazole Magnesium [PriLOSEC OTC] 20 mg PO DAILY 05/14/17 [History] Rivaroxaban [Xarelto] 20 mg PO AC-SUPPER 08/22/17 [History] Acetaminophen [Tylenol Extra Strength] 1,500 mg PO Q6H PRN 04/22/18 [History] Ibuprofen 200 mg PO HS 04/22/18 [History] Levothyroxine Sodium [Synthroid] 50 mcg PO DAILY 04/22/18 [History] cycloSPORINE [Restasis] 1 drop BOTH EYES DAILY 04/22/18 [History] Bimatoprost [Lumigan .01% Ophth Soln] 1 drop BOTH EYES HS 06/04/19 [History] Dorzolamide-Timol 2.23%/0.68% [Cosopt] 1 drop BOTH EYES BID 06/04/19 [History] Furosemide [Lasix] 20 mg PO DAILY 06/04/19 [History] traMADol HCL [Ultram] 50 mg PO HS #7 tab 06/06/19 [Rx] Potassium Gluconate 99 mg PO DAILY 02/04/20 [History] Ertapenem [INVanz] 1 gm IVPB Q24H #14 bag 02/06/20 [Rx] Gabapentin [Neurontin] 300 mg PO TID@0800,1200,1600 #9 cap 02/06/20 [Rx] Gabapentin [Neurontin] 600 mg PO HS #3 cap 02/06/20 [Rx] Follow up Appointment(s)/Referral(s): Jean Kinney MD [Primary Care Provider] - 1 Week (at [facility]) Activity/Diet/Wound Care/Special Instructions: Wound Center appointment February 10 at 9:00. Total nonweightbearing to the right foot. Discharge Disposition: TRANSFER TO SNF/ECF
[2020-02-06] MEDS: MECLIZINE 25 MG TAB PO SCH (07:49)
[2020-02-06] MEDS: PANTOPRAZOLE 40 MG TABLET PO SCH (07:49)
[2020-02-06] MEDS: GABAPENTIN 300 MG CAP PO SCH ×3 (07:50→15:18)
[2020-02-06] MEDS: FUROSEMIDE 20 MG TAB PO SCH (07:51)
[2020-02-06] MEDS ORDERED: CEFEPIME 2 GM in SODIUM CHLORIDE 0.9% 100 ML IVPB SCH (09:00)
--- NOTE | 2020-02-06 09:47 | P.PN ---
Subjective Progress Note Date: 02/06/20 64-year-old obese one of Dr. Lam patient who has been seen at the wound clinic for several weeks for nonhealing ulcer in the right foot secondary to diabetic foot stasis and lack of circulation. Patient apparently developed to have worsening cellulitis pain and discomfort irritation and redness around the lower extremity from the knee down. When she was in the wound center today with the severe cellulitis and nonhealing ulcer patient was admitted to the hospital was started on IV antibiotics consult infectious disease and wound center patient will require further management and treatment might require further assisted living with IV antibiotic for. This time to use her nonhealing ulcer and severe colitis. 02/04: Patient is seen today in recheck. She denies any new complaints. She does feel that her dressing is a little tight and wound team has been notified and will recheck. Patient has been afebrile, heart rate 52, blood pressure 102/68, pulse ox 99% on room air. Repeat blood work reveals WBC 8, hemoglobin 11.4, platelet count 394. Chloride 108 electrolytes renal function and liver function tests within normal limits. C-reactive protein is 25.7 and sed rate 67. Albumin 2.8. PT and OT consults in place. Social work is following for discharge to [facility]. COVID-19 test ordered today with anticipation will be back by tomorrow. Patient is planning for discharge to [facility] for subacute rehab. 02/05: Patient has been seen by Dr. Bobo with recommendations for Cefepime and Vanco and waiting culture report. Wound team has changed wound care to contact cast. Coronavirus PCR not detected. Patient has had ongoing bradycardia which she states Dr. Padma Clarke has talked to her about in the past but thought she had been stable. Heart rate this morning is 38-40. On this admission, patient has received only 1 dose of metoprolol yesterday morning. Patient has been asymptomatic. She denies any headache, lightheadedness, dizziness, syncope, chest pain or shortness of breath. Otherwise she has been afebrile, blood pressure 111/72, pulse ox 95% on room air. We have added in consult for cardiology. Awaiting final wound culture report. Patient has been accepted at [facility] and will be discharged there once all issues have been resolved. Objective - Vital Signs Vital signs: Vital Signs Temp 98.0 F 02/06/20 04:47 Pulse 40 L 02/06/20 07:45 Resp 16 02/06/20 04:47 BP 134/62 02/06/20 07:45 Pulse Ox 95 02/06/20 04:47 Intake & Output 02/05/20 02/06/20 02/06/20 18:59 06:59 18:59 Intake Total 500 Balance 500 Intake: Intake, IV Titration 500 Amount Piperacillin-Tazobactam 3 100 .375 gm In Sodium Chloride 0.9% 100 ml @ 25 mls/hr IVPB Q8H [facility] Rx#: [id number] Piperacillin-Tazobactam 3 400 .375 gm In Sodium Chloride 0.9% 100 ml @ 25 mls/hr IVPB Q8HR [facility] Rx# :[id number] Other: Voiding Method Toilet Toilet Bedside Commode Bedside Commode # Voids 3 2 # Bowel Movements 1 - Exam Review of Systems CONSTITUTIONAL: Well-developed no acute respiratory distress. Morbidly obese, denies fever, denies chills. EYES: No icterus sclerae, no conjunctivitis. EARS, NOSE, MOUTH, THROAT, and FACE: No sore throat, lymphadenopathy, carotid bruits or deformity. RESPIRATORY: No SOB cough or wheezes. CARDIOVASCULAR: No CP, Palpitation, PND, Orthopnea, or angina. Denies lightheadedness, dizziness, syncope. GASTROINTESTINAL: No Abd pain, Nausea or vomiting, no Diarrhea or constipation, No GI Bleed, no distention or masses. GENITOURINARY: Negative for Hematuria or UTI, no kidney stones. INTEGUMENT/BREAST: Severe arthritis, lower extremity edema, with nonhealing u lcer on the right foot and bilateral [place] lightest. HEMATOLOGIC/LYMPHATIC: Negative for bleed or purpura. MUSCULOSKELTAL: Negative for Myalgia or arthralgia. NEURLOGICAL: No LOC, Sz or syncope, blurred vision dizziness or abnormality.. BEHAVIORAL/PSYCH: Negative. ENDOCRINE: Negative. Physical Examination Gen: This is a 64-year-old female. Patient is sitting in a recliner and eating breakfast. She appears to be comfortable and in no acute distress. HEENT: Head is atraumatic, normocephalic. Pupils equal, round. Sclerae is anicteric. NECK: Supple. No JVD. No lymphadenopathy. No thyromegaly. LUNGS: Clear to auscultation. No wheezes or rhonchi. No intercostal retractions. HEART: Regular rate and rhythm. No murmur. ABDOMEN: Soft. Bowel sounds are present. No masses. No tenderness. EXTREMITIES: Erythema to the lower extremities more so on the right. Dressing in place on the right lower leg performed by Wound Center. NEUROLOGICAL: Patient is awake, alert and oriented x3. Cranial nerves 2 through 12 are grossly intact. - Labs CBC & Chem 7: 02/05/20 06:20 02/06/20 05:57 Labs: Abnormal Lab Results - Last 24 Hours (Table) 02/05/20 Range/Units 06:20 ESR 67 H (0-20) mm/hr Assessment and Plan Plan: 1 severe cellulitis of the lower extremity worse than the right side left side: Patient was started on vancomycin, will consult infectious disease and Wound center also continue patient on Zosyn at this point. Patient follows with Dr. Pascual in the wound healing Center. 2 severe nonhealing ulcer in the right foot area: Continue topical care continue absorptive silver to the ulcerated area and 3 layer of compression wrap was done by wound clinic we'll continue current management patient might require longer term care known of the ECF. 3 chronic atrial fibrillation. Patient remain on anticoagulation with Xarelto 20 mg a day pulse rate is under control currently on metoprolol titrate 12.5 mg twice a day. 4 bradycardia, asymptomatic. Patient may require pacemaker implantation. Consult with cardiology, EKG ordered. Patient normally follows with Dr. Padma Clarke in the office. 5 chronic edema: Remain on furosemide 20 mg a day. 6 hyperlipidemia: Remain on Lipitor 10 mg a day. 7 severe neuropathy: Has been on gabapentin 300 mg 3 times a day. 8 hypothyroidism: Continue patient on levothyroxine 50 g daily. 9 chronic pain syndrome: Continue patient on Ultram 50 mg up to 3 times a day as needed. 10 DVT prophylaxis: Remain on Xarelto. 11 GI prophylaxis: Remain on pantoprazole 40 mg daily. 12 COVID-19 infection not present. CODE STATUS: Full code. Discharge plan: [facility] Impression and plan of care have been directed as dictated by the signing physician. Susanne Schofield nurse practitioner acting as scribe for signing physician.
[2020-02-06] MEDS: cycloSPORINE 0.05% OPHTH 0.4 ML DROPERETTE BOTH EYES SCH (10:51)
--- NOTE | 2020-02-06 11:00 | ECHOF ---
Referral Reason:bradycarida, afib MEASUREMENTS -------- HEIGHT: 152.4 cm WEIGHT: 95.3 kg BP: RVIDd: 2.4 cm (< 3.3) IVSd: 1.2 cm (0.6 - 1.1) LVIDd: 3.5 cm (3.9 - 5.3) LVPWd: 1.3 cm (0.6 - 1.1) IVSs: 1.7 cm LVIDs: 1.5 cm LVPWs: 1.7 cm Ao Diam: 2.7 cm (2.0 - 3.7) AV Cusp: 1.8 cm (1.5 - 2.6) LA Diam: 3.2 cm (2.7 - 3.8) MV EXCURSION: 9.024 mm (> 18.000) MV EF SLOPE: 75 mm/s (70 - 150) EPSS: 0.8 cm MV E Melvin: 0.91 m/s MV DecT: 183 ms MV A Melvin: 0.26 m/s MV E/A Ratio: 3.49 RAP: 5.00 mmHg RVSP: 20.41 mmHg FINDINGS -------- Sinus rhythm with extra systolic beats. This was a technically difficult study with suboptimal views. The left ventricular size is normal. There is mild concentric left ventricular hypertrophy. Overa ll left ventricular systolic function is normal with, an EF between 55 - 60 %. The right ventricle is normal in size. The left atrial size is normal. The right atrial size is normal. The aortic valve is trileaflet and appears structurally normal. The mitral valve is normal. There is trace mitral regurgitation. The tricuspid valve appears structurally normal. Mild tricuspid regurgitation present. Right vent ricular systolic pressure is normal at < 35 mmHg. There is no pulmonic regurgitation present. The aortic root size is normal. IVC Not well visulized. There is no pericardial effusion. CONCLUSIONS -------- 1. Sinus rhythm with extra systolic beats. 2. This was a technically difficult study with suboptimal views. 3. The left ventricular size is normal. 4. There is mild concentric left ventricular hypertrophy. 5. Overall left ventricular systolic function is normal with, an EF between 55 - 60 %. 6. The right ventricle is normal in size. 7. The left atrial size is normal. 8. The right atrial size is normal. 9. The aortic valve is trileaflet and appears structurally normal. 10. The mitral valve is normal. 11. There is trace mitral regurgitation. 12. The tricuspid valve appears structurally normal. 13. Mild tricuspid regurgitation present. 14. Right ventricular systolic pressure is normal at < 35 mmHg. 15. There is no pulmonic regurgitation present. 16. The aortic root size is normal. 17. IVC Not well visulized. 18. There is no pericardial effusion. FINANCIAL SUPERVISOR: Kathrin Farias RDCS
[2020-02-06 12:26] VITALS: BP 118/77; PULSE 49; RESP 20
--- NOTE | 2020-02-06 12:45 | P.CRDCN ---
History of Present Illness History of present illness: HISTORY OF PRESENTING ILLNESS This is a pleasant 64 year old female past medical history significant for paroxysmal atrial fibrillation on xarelto, diabetes mellitus, hypertension, obstructive sleep apnea and morbid obesity. She is currently being treated for cellulitis with IV antibiotics and wound debriedment. We have been asked to see her in consultation for bradycardia. EKG reveals sinus bradycardia heart rate 40-45. Current daily cardiac medications include lopressor 12.5 mg BID, xarelto 20 mg daily, atorvastatin 10 mg daily and lasix 20 mg daily. Laboratory data reviewed, potassium 4.5, magnesium 2.0, TSH 1.76, sodium 138, ESR 67 and CRP 25. She has no symptoms of dizziness, chest pain, shortness of breath or palpitations. REVIEW OF SYSTEMS At the time of my exam: CONSTITUTIONAL: Denies fever or chills. CARDIOVASCULAR: Denies chest pain, shortness of breath, orthopnea, PND or palpitations. RESPIRATORY: Denies cough. GASTROINTESTINAL: Denies abdominal pain, diarrhea, constipation, nausea or vomiting. MUSCULOSKELETAL: Denies myalgias. NEUROLOGIC: Complains of generalized weakness and fatigue. Denies numbness, tingling. ENDOCRINE: Denies fatigue, weight change, polydipsia or polyurina. GENITOURINARY: Denies burning, hematuria or urgency with micturation. HEMATOLOGIC: Denies history of anemia or bleeding. PHYSICAL EXAMINATION CONSTITUTIONAL: No apparent distress. Morbidly obese. HEENT: Head is normocephalic. Pupils are equal, round. Sclerae anicteric. Mucous membranes of the mouth are moist. No JVD. No carotid bruit. CHEST EXAMINATION: Lungs are clear to auscultation. No chest wall tenderness is noted on palpation or with deep breathing. Diminished bilaterally. HEART EXAMINATION: Bradycardic. Regular rate and rhythm. S1, S2 heard. Distant heart sounds. No murmurs, gallops or rub. ABDOMEN: Soft, nontender. Positive bowel sounds. EXTREMITIES: 2+ peripheral pulses, lower extremity erythema and edema and no calf tenderness. NEUROLOGIC EXAMINATION: Patient is awake, alert and oriented x3. ASSESSMENT Sinus bradycardia Parozysmal atrial fibrillation on fci anti-coagulation Cellulitis Diabetes mellitus Hypertension Obstructive sleep apnea Morbid obesity, BMI 41 PLAN Discontinue lopressor. Electrolytes are normal and she is euthyroid. Asymptomatic sinus bradycardia noted on EKG. No further intervention at this time. Thank you kindly for this consultation. Nurse Practitioner note has been reviewed, I agree with a documented findings and plan of care. Patient was seen and examined. Past Medical History Past Medical History: Atrial Fibrillation, Diabetes Mellitus, GERD/Reflux, Hypertension, Neurologic Disorder, Osteoarthritis (OA), Sleep Apnea/CPAP/BIPAP, Thyroid Disorder Additional Past Medical History / Comment(s): chronic back pain and neuropathy, open wound right foot, pre-diabetic, neuropathy bilateral feet and right lower leg, chronic lower back pain, lower extremity edema, MICHELLE- tried device but could not tolerate it , UTI, benign colon polyps, vertigo, bilat glaucoma/dry eyes, R eye weak muscles, hypothyroid History of Any Multi-Drug Resistant Organisms: None Reported Past Surgical History: Orthopedic Surgery Additional Past Surgical History / Comment(s): Right ankle fracture with ORIF and hardware has since been removed, right foot tarsal release, colonoscopy with polypectomies, bilate cataract removal/ lens implants. Past Anesthesia/Blood Transfusion Reactions: No Reported Reaction Past Psychological History: No Psychological Hx Reported Additional Psychological History / Comment(s): Pt. resides alone in an apartment. She is non-weight bearing to the right foot. uses a walker at home. She does not drive, she has family that can drive her places. Smoking Status: Never smoker Past Alcohol Use History: None Reported Past Drug Use History: None Reported - Past Family History Mother Family Medical History: Cancer, Renal Disease Additional Family Medical History / Comment(s): colon Father Family Medical History: COPD Additional Family Medical History / Comment(s): father of ephysema at age 74 yrs. Medications and Allergies Home Medications Medication Instructions Recorded Confirmed Type Atorvastatin [Lipitor] 10 mg PO HS 05/14/17 02/04/20 History Meclizine [Antivert] 25 mg PO BID 05/14/17 02/04/20 History Omeprazole Magnesium [PriLOSEC OTC] 20 mg PO DAILY 05/14/17 02/04/20 History Rivaroxaban [Xarelto] 20 mg PO AC-SUPPER 08/22/17 02/04/20 History Acetaminophen [Tylenol Extra 1,500 mg PO Q6H PRN 04/22/18 02/04/20 History Strength] Ibuprofen 200 mg PO HS 04/22/18 02/04/20 History Levothyroxine Sodium [Synthroid] 50 mcg PO DAILY 04/22/18 02/04/20 History cycloSPORINE [Restasis] 1 drop BOTH EYES DAILY 04/22/18 02/04/20 History Bimatoprost [Lumigan .01% Ophth 1 drop BOTH EYES HS 06/04/19 02/04/20 History Soln] Dorzolamide-Timol 2.23%/0.68% 1 drop BOTH EYES BID 06/04/19 02/04/20 History [Cosopt] Furosemide [Lasix] 20 mg PO DAILY 06/04/19 02/04/20 History Gabapentin [Neurontin] 300 mg PO TID@0800,1200,1600 #21 06/06/19 02/04/20 Rx cap Gabapentin [Neurontin] 600 mg PO HS #7 cap 06/06/19 02/04/20 Rx traMADol HCL [Ultram] 50 mg PO HS #7 tab 06/06/19 02/04/20 Rx Metoprolol Tartrate [Lopressor] 12.5 mg PO BID 02/04/20 02/04/20 History Potassium Gluconate 99 mg PO DAILY 02/04/20 02/04/20 History Allergies Allergy/AdvReac Type Severity Reaction Status Date / Time No Known Allergies Allergy Verified 02/04/20 11:54 Physical Exam Vitals: Vital Signs Temp Pulse Pulse Resp BP BP Pulse Ox 02/06/20 07:45 40 L 134/62 02/06/20 04:47 98.0 F 45 L 16 111/72 95 02/05/20 20:49 97.9 F 48 L 16 115/57 94 L 02/05/20 12:58 97.5 F L 44 L 16 106/62 93 L Intake and Output 02/05/20 02/06/20 02/06/20 22:59 06:59 14:59 Intake Total 240 Balance 240 Intake: Oral 240 Other: Voiding Method Toilet Toilet Toilet Bedside Commode Bedside Commode Bedside Commode # Voids 2 2 # Bowel Movements 1 Results 02/05/20 06:20 02/06/20 05:57 Comprehensive Metabolic Panel 02/06/20 Range/Units 05:57 Creatinine 1.01 (0.52-1.04) mg/dL Current Medications Generic Name Dose Route Start Last Admin Trade Name Freq PRN Reason Stop Dose Admin Acetaminophen 1,000 mg 02/04/20 12:19 Tylenol Tab PO Q6H PRN Pain Atorvastatin Calcium 10 mg 02/04/20 21:00 02/05/20 21:55 Lipitor PO 10 mg HS [facility]ENN[facility]ER Administration Cyclosporine 1 drops 02/05/20 09:00 02/06/20 10:51 Restasis 0.05% Ophth Soln BOTH EYES 1 drops DAILY [facility] Administration Dorzolamide/Timolol 1 drops 02/04/20 21:00 02/05/20 21:56 Cosopt BOTH EYES 1 drops BID [facility] Administration Furosemide 20 mg 02/05/20 09:00 02/06/20 07:51 Lasix PO Not Given DAILY [facility] Gabapentin 300 mg 02/04/20 16:00 02/06/20 07:50 Neurontin PO 300 mg TID@0800,1200,1600 [facility] Administration Gabapentin 600 mg 02/04/20 21:00 02/05/20 21:56 Neurontin PO 600 mg HS [facility] Administration Sodium Chloride 1,000 mls @ 50 mls/hr 02/04/20 12:30 02/05/20 16:39 Saline 0.9% IV 50 mls/hr .Q20H [facility] Administration Vancomycin HCl 1,500 mg/ 250 mls @ 125 mls/hr 02/05/20 06:00 02/06/20 06:05 Sodium Chloride IVPB 125 mls/hr Q24H [facility] Administration Cefepime HCl 2 gm/ Sodium 100 mls @ 200 mls/hr 02/06/20 09:00 02/06/20 07:50 Chloride IVPB 200 mls/hr Q12HR [facility] Administration Ibuprofen 200 mg 02/04/20 22:06 02/05/20 21:56 Motrin PO 200 mg HS [facility] Administration Latanoprost 1 drops 02/04/20 21:00 02/05/20 21:57 Xalatan 0.005% BOTH EYES 1 drops HS [facility] Administration Levothyroxine Sodium 50 mcg 02/05/20 06:30 02/06/20 06:05 Synthroid PO 50 mcg 0630 [facility] Administration Meclizine HCl 25 mg 02/04/20 21:00 02/06/20 07:49 Antivert PO 25 mg BID [facility] Administration Pantoprazole Sodium 40 mg 02/05/20 07:30 02/06/20 07:49 Protonix PO 40 mg AC-BRKFST [facility] Administration Rivaroxaban 20 mg 02/04/20 17:30 02/05/20 16:40 Xarelto PO 20 mg AC-SUPPER [facility] Administration Tramadol HCl 50 mg 02/04/20 21:00 02/05/20 21:58 Ultram PO 50 mg HS [facility] Administration Intake and Output 02/05/20 02/06/20 02/06/20 22:59 06:59 14:59 Intake Total 240 Balance 240 Intake: Oral 240 Other: Voiding Method Toilet Toilet Toilet Bedside Commode Bedside Commode Bedside Commode # Voids 2 2 # Bowel Movements 1 02/05/20 06:20 02/06/20 05:57
[2020-02-06] MEDS ORDERED: ERTAPENEM 1 GM in SODIUM CHLORIDE 0.9% 50 ML IVPB SCH (14:30)
[2020-02-06] MEDS: DORZOLAMIDE-TIMOLOL 2.23%/0.68 10ML BTL BOTH EYES SCH (15:11)
--- NOTE | 2020-02-06 16:44 | PN ---
PROGRESS NOTE DATE OF SERVICE: 02/06/2020 REASON FOR FOLLOWUP: Right heel wound with secondary cellulitis. INTERVAL HISTORY: The patient is currently afebrile. The patient is breathing comfortably. Denies having any chest pain or cough. No abdominal pain. Pain to the right hip is currently controlled. PHYSICAL EXAMINATION: Blood pressure 118/77, pulse of 49, temperature 98. She is 96% on room air. General description is an elderly female up in the chair in no distress. RESPIRATORY SYSTEM: Unlabored breathing. Clear to auscultation anteriorly. HEART: S1, S2. Regular rate and rhythm. ABDOMEN: Soft. No tenderness. LABS: Hemoglobin 11.4, white count 8.0, BUN of 17, creatinine 0.89. Wound culture finalized with ESBL E coli and strep. DIAGNOSTIC IMPRESSION AND PLAN: Patient with chronic nonhealing wound to the right heel with evidence of secondary cellulitis. Culture is now showing ESBL and strep. Antibiotic switched over to Invanz 1 gram daily for 2 weeks with close outpatient followup. Continue supportive care. MMODL / IJN: [id number] /
[2020-02-07] MEDS ORDERED: VANCOMYCIN TROUGH DUE 1 EACH MISC MISCELLANE ONE (05:00)
== END 2020-02-06 17:45 ==
LOC: INTOOBSV 10:58 → 5NMEDONC 10:58 → UNDODISIN 02-06 17:45
PROVIDERS: ADMIT Internal Medicine Geriatric Medicine; ATTEND Internal Medicine Geriatric Medicine
DX: E11.621 Type 2 diabetes mellitus with foot ulcer (principal); L03.115 Cellulitis of right lower limb; Z68.41 Body mass index [BMI] 40.0-44.9, adult; I48.20 Chronic atrial fibrillation, unspecified; Z16.12 Extended spectrum beta lactamase (ESBL) resistance; L97.512 Non-pressure chronic ulcer of other part of right foot with fat layer exposed; E11.40 Type 2 diabetes mellitus with diabetic neuropathy, unspecified; E11.39 Type 2 diabetes mellitus with other diabetic ophthalmic complication; B96.1 Klebsiella pneumoniae [K. pneumoniae] as the cause of diseases classified elsewhere; E03.9 Hypothyroidism, unspecified; E66.01 Morbid (severe) obesity due to excess calories; I11.9 Hypertensive heart disease without heart failure; G47.33 Obstructive sleep apnea (adult) (pediatric); H40.9 Unspecified glaucoma; H42 Glaucoma in diseases classified elsewhere; E78.5 Hyperlipidemia, unspecified; G89.4 Chronic pain syndrome; K52.9 Noninfective gastroenteritis and colitis, unspecified; K21.9 Gastro-esophageal reflux disease without esophagitis; M19.90 Unspecified osteoarthritis, unspecified site; H04.123 Dry eye syndrome of bilateral lacrimal glands; M25.551 Pain in right hip; R00.1 Bradycardia, unspecified; M54.5 Low back pain; Z79.01 Long term (current) use of anticoagulants; Z79.899 Other long term (current) drug therapy; Z87.81 Personal history of (healed) traumatic fracture; Z87.440 Personal history of urinary (tract) infections; Z86.010 Personal history of colon polyps; Z98.890 Other specified postprocedural states; Z98.42 Cataract extraction status, left eye; Z98.41 Cataract extraction status, right eye; Z96.1 Presence of intraocular lens; Z82.5 Family history of asthma and other chronic lower respiratory diseases; Z80.0 Family history of malignant neoplasm of digestive organs; Z84.1 Family history of disorders of kidney and ureter; Z03.818 Encounter for observation for suspected exposure to other biological agents ruled out
CPT/HCPCS: 96365; 96366 ×3; 96368 ×3; 93306; 93005; 97530; 97162; 97535; 97166; 36410; 76937; 80053; 80048; 85652; 84443; 82565; 83735; 85027; 86140; G0378 ×3; G0379; C1751; U0003; J2543 ×3; J3370 ×3; J0692; J1335

== ENCOUNTER → 2020-03-16 | Outpatient (CLI) | payer MEDICARE ==
--- NOTE | 2020-03-16 13:39 | ECHOF ---
Referral Reason:R22.42, R22.41, R55, I48.91 A-fib MEASUREMENTS -------- HEIGHT: 152.4 cm WEIGHT: 99.3 kg BP: 142/64 RVIDd: 3.4 cm (< 3.3) IVSd: 1.1 cm (0.6 - 1.1) LVIDd: 3.8 cm (3.9 - 5.3) LVPWd: 1.0 cm (0.6 - 1.1) IVSs: 1.6 cm LVIDs: 2.2 cm LVPWs: 1.4 cm LA Diam: 3.0 cm (2.7 - 3.8) LAESV Index (A-L): 21.11 ml/m Ao Diam: 2.8 cm (2.0 - 3.7) AV Cusp: 1.9 cm (1.5 - 2.6) MV EXCURSION: 12.039 mm (> 18.000) MV EF SLOPE: 86 mm/s (70 - 150) EPSS: 0.7 cm RAP: 5.00 mmHg RVSP: 29.84 mmHg FINDINGS -------- This was a technically adequate study. The left ventricular size is normal. There is borderline concentric left ventricular hypertrophy. Overall left ventricular systolic function is low-normal with, an EF between 50 - 55 %. The right ventricle is mildly enlarged. Normal LA size by volume 22+/-6 ml/m2. The right atrial size is normal. Interatrial and interventricular septum intact. The aortic valve is trileaflet, and appears structurally normal. No aortic stenosis or regurgitation. The mitral valve leaflets are mildly thickened. Mild mitral regurgitation is present. Trace tricuspid regurgitation present. Right ventricular systolic pressure is normal at < 35 mmHg. The pulmonic valve was not well visualized. There is no pulmonic regurgitation present. The aortic root size is normal. Normal inferior vena cava with normal inspiratory collapse consistent with estimated right atrial pre ssure of 5 mmHg. There is no pericardial effusion. CONCLUSIONS -------- 1. There is borderline concentric left ventricular hypertrophy. 2. Overall left ventricular systolic function is low-normal with, an EF between 50 - 55 %. 3. The right ventricle is mildly enlarged. 4. Normal LA size by volume 22+/-6 ml/m2. 5. The aortic valve is trileaflet, and appears structurally normal. No aortic stenosis or regurgitati on. 6. The mitral valve leaflets are mildly thickened. 7. Mild mitral regurgitation is present. 8. Trace tricuspid regurgitation present. 9. There is no pericardial effusion. ELECTRICIAN'S HELPER: Airam Kc RDCS
--- NOTE | 2020-03-16 17:18 | US ---
EXAMINATION TYPE: US venous doppler duplex LE DATE OF EXAM: 03/16/2020 12:50 PM COMPARISON: NONE CLINICAL HISTORY: R22.42, R22.41, R55, I48.91 A-fib. Bilateral leg swelling, patient on blood thinner s SIDE PERFORMED: Bilateral TECHNIQUE: The lower extremity deep venous system is examined utilizing real time linear array sonog jihan with graded compression, doppler sonography and color-flow sonography. VESSELS IMAGED: External Iliac Vein (EIV) Common Femoral Vein Deep Femoral Vein Greater Saphenous Vein * Femoral Vein Popliteal Vein Small Saphenous Vein * Proximal Calf Veins (* superficial vessels) There is normal flow, compressibility, vascular waveforms Right Leg: Appears negative for DVT Left Leg: Appears negative for DVT IMPRESSION: No evident deep venous thrombosis at or above the knees. Follow-up as indicated.
--- NOTE | 2020-03-17 12:40 | P.ARTDOP ---
Arterial Doppler LOWER EXTREMITY ARTERIAL DOPPLER: DATE OF SERVICE: 03/16/2020 Reason for study: Bilateral foot ulcers. Doppler waveforms: Multiphasic bilaterally throughout. Pulse volume recording: Pressure gradients: None. Ankle-brachial indices: Greater than 1 bilaterally. Toe brachial indices: 0.61 on the right, 0.74 on the left Impression: Normal study.
== END | disposition home or self-care (01) ==
LOC: RADCTMAIN 10:43
PROVIDERS: ATTEND Family Medicine
DX: R22.43 Localized swelling, mass and lump, lower limb, bilateral (principal); R55 Syncope and collapse; I48.91 Unspecified atrial fibrillation; I34.0 Nonrheumatic mitral (valve) insufficiency
CPT/HCPCS: 93306; 93922; 93923; 93970

== ENCOUNTER → 2020-03-25 | Outpatient (CLI) | payer MEDICARE ==
--- NOTE | 2020-03-25 11:49 | CT ---
EXAMINATION TYPE: CT brain wo/w con DATE OF EXAM: 03/25/2020 COMPARISON: None HISTORY: syncope, falls CT DLP: 2253 mGycm Automated exposure control for dose reduction was used. CONTRAST: CT scan of the head is performed with IV Contrast, patient injected with 80 mL of Isovue 300. FINDINGS: Severe dental artifact obscures portions of the exam. There is a nasal septal deviation. Intracranial atherosclerotic changes are noted. There is mild generalized degenerative change of the greater frontal lobe component. Low-attenuation in the white matter is nonspecific but most typical remote microvascular ischemia. No acute hemorrhag e or mass effect. Following the administration of contrast no enhancing mass. Calvarium is intact. IMPRESSION: 1. Degenerative and nonspecific white matter changes most typical remote ischemia. 2. No acute hemorrhage or enhancing mass.
[2020-03-25 12:08] LABS: T4, Free (Free Thyroxine) 1.15 ng/dL (0.78-2.19)
== END | disposition home or self-care (01) ==
LOC: RADCTMAIN 09:59
PROVIDERS: ATTEND Family Medicine
DX: G31.9 Degenerative disease of nervous system, unspecified (principal); R90.89 Other abnormal findings on diagnostic imaging of central nervous system; R55 Syncope and collapse
CPT/HCPCS: 84439; 82565; 84443; 84520; 70470; 36415; Q9967

== ENCOUNTER → 2020-12-20 | Outpatient (CLI) | payer MEDICARE ==
[2020-12-20 19:23] LABS: Basophils # (A) 0.04 X 10*3/uL (0.00-0.10); Basophils % (A) 0.6 %; Eosinophils # (A) 0.37 X 10*3/uL (0.04-0.35); Eosinophils % (A) 5.3 %; HCT 39.6 % (37.2-46.3); HGB 12.3 g/dL (12.0-15.0); Lymphocytes # (A) 1.42 X 10*3/uL (0.90-5.00); Lymphocytes % (A) 20.5 %; MCH 30.8 pg (27.0-32.0); MCHC 31.1 g/dL (32.0-37.0); Mean Platelet Volume 10.1 fL (9.5-12.2); Monocytes # (A) 0.81 X 10*3/uL (0.20-1.00); Monocytes % (A) 11.7 %; Neutrophils # (A) 4.24 X 10*3/uL (1.80-7.70); Neutrophils % (A) 61.3 %; Platelet Count 368 X 10*3/uL (140-440); RDW 14.3 % (11.5-14.5); WBC 6.92 X 10*3/uL (4.50-10.00)
[2020-12-20 22:03] LABS: Hemoglobin A1C 6.2 % (4.0-6.0)
== END | disposition home or self-care (01) ==
LOC: LABWHC1 10:26
PROVIDERS: ATTEND Podiatrist Foot & Ankle Surgery
DX: E11.9 Type 2 diabetes mellitus without complications (principal); L08.9 Local infection of the skin and subcutaneous tissue, unspecified
CPT/HCPCS: 36415; 83036; 85025

== ENCOUNTER → 2021-12-29 | Outpatient (CLI) | payer MEDICARE ==
--- NOTE | 2021-12-29 16:00 | XR ---
EXAMINATION TYPE: XR calcaneus 2V RT DATE OF EXAM: 12/29/2021 COMPARISON: NONE HISTORY: Pressure ulcer right foot. TECHNIQUE: 2 views right calcaneus. FINDINGS: Slightly suboptimal due to overlying clothing or bandage material. No acute fracture or for dislocation in the calcaneus. Bohler's angle is maintained. Small superior and inferior calcaneal sp urs are seen. No suspicious bony destruction or periosteal reaction with attention to the posterior a spect of the calcaneus at area of clinical concern. IMPRESSION: As above.
== END | disposition home or self-care (01) ==
LOC: RADXRMAIN 14:48
PROVIDERS: ATTEND Nurse Practitioner Family
DX: M77.31 Calcaneal spur, right foot (principal)

== ENCOUNTER → 2022-02-15 | Outpatient (CLI) | payer MEDICARE ==
--- NOTE | 2022-02-16 02:19 | MR ---
EXAMINATION TYPE: MR foot RT wo/w con DATE OF EXAM: 02/15/2022 COMPARISON: HISTORY: Right foot pain and redness, pressure ulcer CONTRAST: Standard multiplanar, multisequence MRI departmental protocol images were obtained without contrast a nd with 10 mL intravenous Gadavist gadolinium contrast. There is metal artifact from 2 screws which are fixing the medial malleolus. The ankle mortise is ajit tomic. There is severe ankle joint space narrowing. There is some spurring of the anterior and food safety field specialist ior malleolus. Subtalar joint is intact. There is Achilles calcaneal spurring. Achilles tendon is int act. The plantar fascia appears intact. There is some decreased signal on the T1 images in the mid and distal shaft of the fourth metatarsal. This shows increased signal at the fourth metatarsal head on the STIR images. The toes appear intact . No definite fracture line seen. Bones of the midfoot appear intact. No erosion. No sign of a soft t issue mass. There is some mild edema around the MP joints of the foot. IMPRESSION: Mild soft tissue edema of the forefoot at the MP joints. There is some edema in the mid and distal sh aft of the fourth metatarsal that could be stress related phenomenon. Healing fourth metatarsal head fracture is possible.
== END | disposition home or self-care (01) ==
LOC: RADMRIMAIN 14:26
PROVIDERS: ATTEND Thoracic Surgery (Cardiothoracic Vascular Surgery)
DX: L89.612 Pressure ulcer of right heel, stage 2 (principal); R60.0 Localized edema
CPT/HCPCS: 73720; A9585

== ENCOUNTER 2022-03-07 11:53 | Observation (INO) | payer MEDICARE ==
[2022-03-07 12:50] LABS: Basophils # (A) 0.1 k/uL (0-0.2); Basophils % (A) 1 %; Eosinophils # (A) 0.3 k/uL (0-0.7); Eosinophils % (A) 3 %; HCT 35.4 % (34.0-46.0); HGB 11.5 gm/dL (11.4-16.0); Hypochromasia Moderate; Lymphocytes # (A) 1.1 k/uL (1.0-4.8); Lymphocytes % (A) 11 %; MCH 31.7 pg (25.0-35.0); MCHC 32.4 g/dL (31.0-37.0); MCV 97.8 fL (80.0-100.0); Mean Platelet Volume 7.8; Monocytes # (A) 0.6 k/uL (0-1.0); Monocytes % (A) 6 %; Neutrophils % (A) 78 %; Platelet Count 348 k/uL (150-450); RBC 3.62 m/uL (3.80-5.40); RDW 15.1 % (11.5-15.5); WBC 10.3 k/uL (3.8-10.6)
--- NOTE | 2022-03-07 13:12 | XR ---
EXAMINATION TYPE: XR foot complete RT DATE OF EXAM: 03/07/2022 CLINICAL HISTORY: pain TECHNIQUE: Frontal, lateral and oblique images of the right foot are obtained. COMPARISON: None. FINDINGS: Screw fixation noted medial malleolus. There is soft tissue edema about the mid foot and a nkle. There is no acute fracture/dislocation evident. The joint spaces appear within normal limits. No evidence for underlying osteomyelitis. Degenerative changes ankle mortise. IMPRESSION: There is no acute fracture or dislocation. ICD 10 NO FRACTURE, INITIAL EVALUATION
[2022-03-07 13:18] LABS: Albumin 3.3 g/dL (3.5-5.0); Potassium 3.9 mmol/L (3.5-5.1); Total Bilirubin 0.3 mg/dL (0.2-1.3); Total Protein 7.1 g/dL (6.3-8.2)
[2022-03-07 13:39] LABS: C Reactive Protein 13.2 mg/dL (<1.0)
[2022-03-07] MEDS ORDERED: VANCOMYCIN IV PER PHARMACY 1 EACH MISC MISCELLANE PRN (13:48)
[2022-03-07] MEDS ORDERED: VANCOMYCIN 1,500 MG in SODIUM CHLORIDE 0.9% 250 ML IVPB STA (13:52)
--- NOTE | 2022-03-07 14:05 | ED ---
Extremity Problem HPI - General Chief complaint: Extremity Problem,Nontraumatic Stated complaint: Foot issues Time Seen by Provider: 03/07/22 12:00 Source: patient, RN notes reviewed Mode of arrival: ambulatory Limitations: no limitations - History of Present Illness Initial comments: This a 66-year-old female presents emergency Department from wound care for infected wounds, diabetic ulcers. Patient states she's been treated for over year but states of recent she's had worsening symptoms. Patient having increasing drainage, redness and swelling of her right foot, left told they did debride today sent her over here for admission for IV antibiotics. - Related Data Home Medications Medication Instructions Recorded Confirmed Atorvastatin [Lipitor] 10 mg PO HS 05/14/17 02/04/20 Meclizine [Antivert] 25 mg PO BID 05/14/17 02/04/20 Omeprazole Magnesium [PriLOSEC OTC] 20 mg PO DAILY 05/14/17 02/04/20 Rivaroxaban [Xarelto] 20 mg PO AC-SUPPER 08/22/17 02/04/20 Acetaminophen [Tylenol Extra 1,500 mg PO Q6H PRN 04/22/18 02/04/20 Strength] Ibuprofen 200 mg PO HS 04/22/18 02/04/20 Levothyroxine Sodium [Synthroid] 50 mcg PO DAILY 04/22/18 02/04/20 cycloSPORINE [Restasis] 1 drop BOTH EYES DAILY 04/22/18 02/04/20 Bimatoprost [Lumigan 0.01% Ophth 1 drop BOTH EYES HS 06/04/19 02/04/20 Soln] Dorzolamide-Timol 2.23%/0.68% 1 drop BOTH EYES BID 06/04/19 02/04/20 [Cosopt] Furosemide [Lasix] 20 mg PO DAILY 06/04/19 02/04/20 Potassium Gluconate [Potassium 99 mg PO DAILY 02/04/20 02/04/20 Gluconate ER] Previous Rx's Medication Instructions Recorded Ertapenem [INVanz] 1 gm IVPB Q24H #14 bag 02/06/20 Gabapentin [Neurontin] 300 mg PO TID@0800,1200,1600 #9 cap 02/06/20 Gabapentin [Neurontin] 600 mg PO HS #3 cap 02/06/20 traMADol HCL [Ultram] 50 mg PO HS #3 tab 02/06/20 Allergies Allergy/AdvReac Type Severity Reaction Status Date / Time No Known Allergies Allergy Verified 03/07/22 11:57 Review of Systems ROS Statement: Those systems with pertinent positive or pertinent negative responses have been documented in the HPI. ROS Other: All systems not noted in ROS Statement are negative. Past Medical History Past Medical History: Atrial Fibrillation, Diabetes Mellitus, GERD/Reflux, Hypertension, Neurologic Disorder, Osteoarthritis (OA), Sleep Apnea/CPAP/BIPAP, Thyroid Disorder Additional Past Medical History / Comment(s): chronic back pain and neuropathy, open wound right foot, pre-diabetic, neuropathy bilateral feet and right lower leg, chronic lower back pain, lower extremity edema, MICHELLE- tried device but could not tolerate it , UTI, benign colon polyps, vertigo, bilat glaucoma/dry eyes, R eye weak muscles, hypothyroid History of Any Multi-Drug Resistant Organisms: None Reported Date of last positivie culture/infection: 02/04/20 MDRO Source:: ESBL URINE Past Surgical History: Orthopedic Surgery Additional Past Surgical History / Comment(s): Right ankle fracture with ORIF and hardware has since been removed, right foot tarsal release, colonoscopy with polypectomies, bilate cataract removal/ lens implants. Past Anesthesia/Blood Transfusion Reactions: No Reported Reaction Past Psychological History: No Psychological Hx Reported Smoking Status: Never smoker Past Alcohol Use History: None Reported Past Drug Use History: None Reported - Past Family History Mother Family Medical History: Cancer, Renal Disease Additional Family Medical History / Comment(s): colon Father Family Medical History: COPD Additional Family Medical History / Comment(s): father of ephysema at age 74 yrs. General Exam Limitations: no limitations General appearance: alert, in no apparent distress Head exam: Present: atraumatic, normocephalic, normal inspection Respiratory exam: Present: normal lung sounds bilaterally. Absent: respiratory distress, wheezes, rales, rhonchi, stridor Cardiovascular Exam: Present: regular rate, normal rhythm, normal heart sounds. Absent: systolic murmur, diastolic murmur, rubs, gallop, clicks Extremities exam: Present: other (Right foot there is ulcerations on the medial aspect of the foot, ankle surrounding erythema, foul odor noted, left foot first digit debridement of the distal tip) Course Vital Signs 03/07/22 11:54 Temperature 97.8 F Pulse Rate 70 Respiratory 22 Rate Blood Pressure 142/76 O2 Sat by Pulse 99 Oximetry Medical Decision Making - Medical Decision Making Patient x-ray does not show any evidence of hospitalized patient be treated for diabetic foot ulceration, cellulitis. Patient started dual - Lab Data Result diagrams: 03/07/22 12:33 03/07/22 12:33 Lab Results 03/07/22 03/07/22 03/07/22 Range/Units 12:33 12:33 12:33 WBC 10.3 (3.8-10.6) k/uL RBC 3.62 L (3.80-5.40) m/uL Hgb 11.5 (11.4-16.0) gm/dL Hct 35.4 (34.0-46.0) % MCV 97.8 (80.0-100.0) fL MCH 31.7 (25.0-35.0) pg MCHC 32.4 (31.0-37.0) g/dL RDW 15.1 (11.5-15.5) % Plt Count 348 (150-450) k/uL MPV 7.8 Neutrophils % 78 % Lymphocytes % 11 % Monocytes % 6 % Eosinophils % 3 % Basophils % 1 % Neutrophils # 8.0 H (1.3-7.7) k/uL Lymphocytes # 1.1 (1.0-4.8) k/uL Monocytes # 0.6 (0-1.0) k/uL Eosinophils # 0.3 (0-0.7) k/uL Basophils # 0.1 (0-0.2) k/uL Hypochromasia Moderate Sodium 138 (137-145) mmol/L Potassium 3.9 (3.5-5.1) mmol/L Chloride 102 (98-107) mmol/L Carbon Dioxide 28 (22-30) mmol/L Anion Gap 8 mmol/L BUN 27 H (7-17) mg/dL Creatinine 1.11 H (0.52-1.04) mg/dL Est GFR (CKD-EPI)AfAm 59 (>60 ml/min/1.73 sqM) Est GFR (CKD-EPI)NonAf 51 (>60 ml/min/1.73 sqM) Glucose 116 H (74-99) mg/dL Plasma Lactic Acid [place] 1.5 (0.7-2.0) mmol/L Calcium 9.0 (8.4-10.2) mg/dL Total Bilirubin 0.3 (0.2-1.3) mg/dL AST 46 H (14-36) U/L ALT 23 (4-34) U/L Alkaline Phosphatase 70 (38-126) U/L C-Reactive Protein 13.2 H (<1.0) mg/dL Total Protein 7.1 (6.3-8.2) g/dL Albumin 3.3 L (3.5-5.0) g/dL Disposition Clinical Impression: Diabetic ulcer of right foot, Diabetic ulcer of left foot Disposition: ADMITTED IP TO THIS [facility] Condition: Fair Referrals: Blaze Garica DO [Primary Care Provider] - 1-2 days Time of Disposition: 14:05
[2022-03-07] MEDS ORDERED: NALOXONE 0.4 MG/ML 1 ML VIAL IV PRN (14:06)
[2022-03-07] MEDS: PIPERACILLIN-TAZOBACTAM 3.375 GM in SODIUM CHLORIDE 0.9% 100 ML IVPB SCH ×2 (16:24→23:43)
[2022-03-07 17:02] LABS: Glucose,Whole Blood 103 mg/dL (70-110)
[2022-03-07 20:26] LABS: Glucose,Whole Blood 175 mg/dL (70-110)
--- NOTE | 2022-03-07 21:40 | P.HPIM ---
History of Present Illness H&P Date: 03/07/22 HISTORY OF PRESENT ILLNESS 66-year-old mildly obese female one of Dr. Garcia patient who has been seen at the wound clinic for long time was known to have history of type 2 diabetes had history of diabetic foot, A. fib with RVR, previous history of severe GERD and hypothyroidism who has been seen at the 1 to clinic for the lost few weeks for nonhealing diabetic foot and ulcerated area on the right foot involving the medial aspect of the heel on the bottom part 8 short of the measure to time 2 inches stage II had been debrided few times and been treated at the wound clinic and as an outpatient. Also has nonhealing ulcerated area on the left big toe was debrided today at the wound clinic and would not stop bleeding. Notice more spreading redness had cellulitis of the left leg after her debridement is completed with a nonhealing ulcerated area in the right foot patient was sent to the emergency department and admitted to the hospital for IV antibiotic and a ggressive management. According to patient had MRI recently did not show any osteomyelitis. Patient will be continue on IV antibiotic she was started on Zosyn Will add 1 g of Vanco consult infectious disease and see if we can do culture from decided this point. Review of Systems CONSTITUTIONAL: Well-developed no acute respiratory distress. Morbidly obese EYES: No icterus sclerae, no conjunctivitis. EARS, NOSE, MOUTH, THROAT, and FACE: No sore throat, lymphadenopathy, carotid bruits or deformity. RESPIRATORY: No SOB cough or wheezes. CARDIOVASCULAR: No CP, Palpitation, PND, Orthopnea, or angina. GASTROINTESTINAL: No Abd pain, Nausea or vomiting, no Diarrhea or constipation, No GI Bleed, no distention or masses. GENITOURINARY: Negative for Hematuria or UTI, no kidney stones. INTEGUMENT/BREAST: Severe arthritis, lower extremity edema, with nonhealing ulcer on the right foot and bilateral Landry lightest. Also nonhealing ulcerated area on the left big toe. HEMATOLOGIC/LYMPHATIC: Negative for bleed or purpura. MUSCULOSKELTAL: Negative for Myalgia or arthralgia. NEURLOGICAL: No LOC, Sz or syncope, blurred vision dizziness or abnormality.. BEHAVIORAL/PSYCH: Negative. ENDOCRINE: Negative. SOCIAL HISTORY Patient never smoked, no code abuse, she is single live alone and has been able to manage her a fair last few years. FAMILY HISTORY Patient never had any children, she has 1 brother was up there and agent multiple medical problem. Father a 74 from COPD mother at 82 from end-stage renal disease. PHYSICAL EXAMINATION General Appearance: Alert, cooperative, no distress, appears stated age. Morbidly obese Neck HEENT: Supple, no lymphadenopathy, no thyroid enlargement, no carotid bruits. Lungs: Decreased breath some bilateral rhonchi no crackles or wheezes. Chest Wall: Decrease expansion with deep inspiration no tenderness and no deformity was found on exam, no costochondral pain or discomfort. Heart: Regular rate and rhythm, S1, S2 normal, no murmur, rub or gallop. Mild PVC. Back: Symmetric, no curvature, ROM normal, no CVA tenderness. Abdomen: Soft, non-tender, bowel sounds active all four quadrants, no masses, no organomegaly. Extremities: Significant edema with significant redness and cellulitis bilaterally worse in the right leg from the knee down with ulcerated area on the right medial plantar calcaneus measure 1.5 time 1.5 cm the exposure as a stage II. Another area on the medial aspect close to the heel side measure 2x2 centim eter again stage II. With the left big toe had on the bottom part and ulcerated area was debrided today still bleeding. Pulses: Decrease pulse bilaterally significant edema. Skin: Skin color, texture, tugor normal, no rashes or lesions. Neurologic: Alert oriented x3 cranial nerves II through XII intact, no motor deficit, not been able to do gait exam. ASSESSMENT AND PLAN - severe cellulitis of the lower extremity worse than the right side left side: Patient was started on vancomycin, will consult infectious disease and one center also continue patient on Zosyn at this point. - severe nonhealing ulcer in the right foot area: Continue wound care dressing and change for now and continue to be seen continue IV antibiotic and treat according to the culture. - Type 2 diabetes: Continue Accu-Chek with sliding scales coverage patient last A1c from September this year was only 6.3 blood sugar was mildly elevated today at 175 with try to keep her blood sugar in the low 100. - A. fib with RVR: Patient remain on anticoagulation with Xarelto 20 mg a day pulse rate is under control currently on metoprolol titrate 12.5 mg twice a day. - chronic edema: Remain on furosemide 20 mg a day. - hyperlipidemia: Remain on Lipitor 10 mg a day. - severe neuropathy: Has been on gabapentin 300 mg 3 times a day. - hypothyroidism: Continue patient on levothyroxine 50 g daily. - chronic pain syndrome: Continue patient on Ultram 50 mg up to 3 times a day as needed. - DVT prophylaxis: Remain on Xarelto. - GI prophylaxis: Remain on pantoprazole 40 mg daily. - CODE STATUS: Full code. Admit patient to inpatient status for more than 2 nights. Past Medical History Past Medical History: Atrial Fibrillation, Diabetes Mellitus, Eye Disorder, GERD/Reflux, Hearing Disorder / Deafness, Hyperlipidemia, Hypertension, Neurologic Disorder, Osteoarthritis (OA), Sleep Apnea/CPAP/BIPAP, Thyroid Disorder, Vascular Disorder Additional Past Medical History / Comment(s): "Borderline diabetic", neuropathy bilateral feet/legs, bilateral feet diabetic ulcers/diabetic stasis, occasional bilateral lower leg edema, past bilateral lower leg cellulitis, varicosities, paroxysmal afib, vertigo, bilateral tinnitis, umbilical hernia, MICHELLE but unable to tolerate device, chronic back pain/scoliosis, bilateral eye glaucoma/dry eyes, R eye muscle weakness, benign colon polyps, UTIs. History of Any Multi-Drug Resistant Organisms: None Reported Date of last positivie culture/infection: 02/04/20 MDRO Source:: ESBL URINE Past Surgical History: Heart Catheterization, Orthopedic Surgery, Tonsillectomy Additional Past Surgical History / Comment(s): Right ankle fracture with ORIF and some hardware has since been removed, right foot tarsal release, cyst removed from back, R heel debridements, L great toe debridements, colonoscopy with polypectomies, bilateral cataract removal/ lens implants. Past Anesthesia/Blood Transfusion Reactions: No Reported Reaction Smoking Status: Never smoker - Past Family History Mother Family Medical History: Cancer, Renal Disease Additional Family Medical History / Comment(s): colon Father Family Medical History: COPD Additional Family Medical History / Comment(s): father of ephysema at age 74 yrs. Medications and Allergies Home Medications Medication Instructions Recorded Confirmed Type Atorvastatin [Lipitor] 10 mg PO DAILY 05/14/17 03/07/22 History Meclizine [Antivert] 25 mg PO BID 05/14/17 03/07/22 History Omeprazole Magnesium [PriLOSEC OTC] 20 mg PO DAILY 05/14/17 03/07/22 History Rivaroxaban [Xarelto] 20 mg PO W/SUPPER 08/22/17 03/07/22 History Ibuprofen 200 mg PO DAILY PRN 04/22/18 03/07/22 History Levothyroxine Sodium [Synthroid] 50 mcg PO DAILY 04/22/18 03/07/22 History cycloSPORINE [Restasis] 1 drop BOTH EYES DAILY 04/22/18 03/07/22 History Dorzolamide-Timol 2.23%/0.68% 1 drop BOTH EYES BID 06/04/19 03/07/22 History [Cosopt] Potassium Gluconate [Potassium 99 mg PO DAILY 02/04/20 03/07/22 History Gluconate ER] Cholecalciferol [Vitamin D3 (125 125 mcg PO DAILY 03/07/22 03/07/22 History Mcg = 5000 Iu)] Furosemide [Lasix] 20 mg PO DAILY 03/07/22 03/07/22 History Gabapentin [Neurontin] 400 mg PO 5XD 03/07/22 03/07/22 History traMADol HCL [Ultram] 50 mg PO DAILY PRN 03/07/22 03/07/22 History Allergies Allergy/AdvReac Type Severity Reaction Status Date / Time No Known Allergies Allergy Verified 03/07/22 14:23 Physical Exam Vitals: Vital Signs Temp Pulse Pulse Resp BP BP Pulse Ox 03/07/22 19:18 97.6 F 74 16 101/69 95 03/07/22 16:55 97.5 F L 54 L 15 141/70 98 03/07/22 15:49 67 16 123/84 97 03/07/22 11:54 97.8 F 70 22 142/76 99 Intake and Output 03/07/22 03/07/22 03/07/22 06:59 14:59 22:59 Intake Total 160 Balance 160 Intake: Oral 160 Other: # Voids 4 Weight 95.254 kg 95.254 kg Results CBC & Chem 7: 03/07/22 12:33 03/07/22 12:33 Labs: Abnormal Lab Results - Last 24 Hours (Table) 03/07/22 03/07/22 03/07/22 Range/Units 12:33 12:33 20:14 RBC 3.62 L (3.80-5.40) m/uL Neutrophils # 8.0 H (1.3-7.7) k/uL BUN 27 H (7-17) mg/dL Creatinine 1.11 H (0.52-1.04) mg/dL Glucose 116 H (74-99) mg/dL POC Glucose (mg/dL) 175 H (70-110) mg/dL AST 46 H (14-36) U/L C-Reactive Protein 13.2 H (<1.0) mg/dL Albumin 3.3 L (3.5-5.0) g/dL Thrombosis Risk Factor Assmnt - Choose All That Apply Any of the Below Risk Factors Present?: Yes Each Factor Represents 1 point: Obesity (BMI >25) Other Risk Factors: Yes Each Risk Factor Represents 2 Points: Age 61-74 years Other congenital or acquired thrombophilia - If yes, enter type in comment: No Thrombosis Risk Factor Assessment Total Risk Factor Score: 3 Thrombosis Risk Factor Assessment Level: Moderate Risk
[2022-03-07] MEDS: GABAPENTIN 400 MG CAP PO SCH (23:43)
[2022-03-08] MEDS: LEVOTHYROXINE 50 MCG TAB PO SCH (05:44)
[2022-03-08] MEDS: GABAPENTIN 400 MG CAP PO SCH ×4 (05:44→19:40)
[2022-03-08 06:50] LABS: Glucose,Whole Blood 96 mg/dL (70-110)
[2022-03-08] MEDS: INSULIN ASPART (NovoLOG) 100 UNIT/ML VIAL SQ SCH ×4 (07:20→22:08)
[2022-03-08] MEDS ORDERED: NON FORMULARY DRUG (Potassium Gluconate [Potassium Gluconate Er] 99 MG Tablet.Er) PO SCH (09:00)
[2022-03-08] MEDS: cycloSPORINE 0.05% OPHTH 0.4 ML DROPERETTE BOTH EYES SCH (09:07)
[2022-03-08] MEDS: ATORVASTATIN 10 MG TAB PO SCH (09:07)
[2022-03-08] MEDS: FUROSEMIDE 20 MG TAB PO SCH (09:07)
[2022-03-08] MEDS: metFORMIN 500 MG TAB PO SCH ×2 (09:07→17:32)
[2022-03-08] MEDS: FAMOTIDINE 20 MG TAB PO SCH (09:07)
[2022-03-08] MEDS: CHOLECALCIFEROL 125 MCG (5000 IU) TABLET PO SCH (09:07)
[2022-03-08] MEDS: PANTOPRAZOLE 40 MG TABLET PO SCH (09:07)
[2022-03-08] MEDS: PIPERACILLIN-TAZOBACTAM 3.375 GM in SODIUM CHLORIDE 0.9% 100 ML IVPB SCH ×2 (09:08→17:33)
[2022-03-08] MEDS ORDERED: GELATIN SPONGE,ABSORB (SMALL) 1 EACH SPONGE TOPICAL STA (09:53)
--- NOTE | 2022-03-08 10:10 | P.CONS ---
History of Present Illness - Reason for Consult Consult date: 03/08/22 wound care - History of Present Illness This is a 66-year-old female known to the wound care center with nonhealing ulcerations to the right calcaneus, right medial malleolus, and left great toe. Patient was in a total contact cast to the right lower extremity. She did not come in for her weekly visit last week due to transportation. Yesterday patient was seen in the wound care center with the right calcaneus and right medial malleolus ulcerations worsen. The right medial malleolus ulceration showed ecchymosis and significant amount of slough and nonviable tissue, the right calcaneus ulceration had new blistering with purulent drainage present and ecchymosis. Patient lives alone. And has had difficulty caring for self. Per her family she had fallen over the weekend and called for assistance approximate 2 hours after the fall. Original cause of wound was Pressure Injury. The date acquired was: 06/09/2021. The wound has been in treatment 37 weeks. The wound is currently classified as a Category/Stage II wound with etiology of Pressure Ulcer and is located on the Right,Plantar Calcaneus. The wound measures 1.2cm length x 1.5cm width x 0.1cm depth; 1.414cm^2 area and 0.141cm^3 volume. There is no tunneling or undermining noted. There is a large amount of purulent drainage noted. The wound margin is thickened. There is small (1-33%) red granulation within the wound bed. There is a large (67-100%) amount of necrotic tissue within the wound bed including Adherent Slough. The periwound skin appearance exhibited: Callus, Scarring, Maceration, Hemosiderin Staining. The periwound skin appearance did not exhibit: Crepitus, Excoriation, Induration, Rash, Dry/Scaly, Atrophie Roselle, Cyanosis, Ecchymosis, Mottled, Pallor, Rubor, Erythema. Periwound temperature was noted as No Abnormality. General Notes: red purulent drainage from a blister that had formed medial to wound Original cause of wound was Not Known. The date acquired was: 12/11/2021. The wound has been in treatment 10 weeks. The wound is currently classified as a Full Thickness Without Exposed Support Structures wound with etiology of Venous Leg Ulcer and is located on the Right,Medial Lower Leg. The wound measures 3.7cm length x 2.1cm width x 0.1cm depth; 6.103cm^2 area and 0.61cm^3 volume. There is no tunneling or undermining noted. There is a medium amount of serous drainage noted. The wound margin is flat and intact. There is medium (34-66%) pink granulation within the wound bed. There is a medium (34-66%) amount of necrotic tissue within the wound bed including Adherent Slough. The periwound skin appearance exhibited: Scarring, Maceration, Hemosiderin Staining. The periwound skin appearance did not exhibit: Callus, Crepitus, Excoriation, Induration, Rash, Dry/Scaly, Atrophie Rocio, Cyanosis, Ecchymosis, Mottled, Pallor, Rubor, Erythema. Original cause of wound was Not Known. The date acquired was: 01/21/2022. The wound has been in treatment 5 weeks. The wound is currently classified as a Category/Stage II wound with etiology of Pressure Ulcer and is located on the Left Toe Great. The wound measures 1.6cm length x 1.2cm width x 0.1cm depth; 1.508cm^2 area and 0.151cm^3 volume. There is no tunneling or undermining noted. There is a small amount of serosanguineous drainage noted. The wound margin is thickened. There is medium (34-66%) red granulation within the wound bed. There is a medium (34-66%) amount of necrotic tissue within the wound bed including Adherent Slough. The periwound skin appearance exhibited: Callus. The periwound skin appearance did not exhibit: Crepitus, Excoriation, Induration, Rash, Scarring, Dry/Scaly, Maceration, Atrophie Rocio, Cyanosis, Ecchymosis, Hemosiderin Staining, Mottled, Pallor, Rubor, Erythema. Periwound temperature was noted as No Abnormality. Original cause of wound was Blister. The date acquired was: 02/09/2022. The wound has been in treatment 3 weeks. The wound is currently classified as a Category/Stage II wound with etiology of Pressure Ulcer and is located on the Right,Medial Foot. The wound measures 0cm length x 0cm width x 0cm depth; 0cm^2 area and 0cm^3 volume. The wound is limited to skin breakdown. There is no tunneling or undermining noted. There is a small amount of serosanguineous drainage noted. The wound margin is flat and intact. There is no granulation within the wound bed. There is no necrotic tissue within the wound bed. The yanely wound skin appearance exhibited: Scarring. The periwound skin appearance did not exhibit: Dry/Scaly, Maceration, Atrophie Roselle, Cyanosis, Ecchymosis, Hemosiderin Staining, Mottled, Pallor, Rubor, Erythema. General Notes: healed Review Of Systems: Constitutional: No fever, no chills, no night sweats. No weight change. No weakness, fatigue or lethargy. No daytime sleepiness. Integumentary:reports wounds, no lesions. No rash or pruritus. No unusual bruising. No change in hair or nails. Physical exam: General Appearance: Alert, cooperative, no distress, appears stated age. Skin: See HPI all other Skin color, texture, tugor normal, no rashes or lesions. Neurologic: Alert oriented x3 Assessment: 1. Stage II pressure ulcer right calcaneus 2. Nonhealing ulceration right medial lower extremity with fat layer exposure 3. Nonhealing ulceration left great toe with fat layer exposure Plan: 1. Apply Gelfoam to control bleeding. Once bleeding is under control apply absorptive silver, saline moistened gauze, dry gauze, rolled gauze and secure with paper tape. Change Sunday. Patient returned to the wound care center next at 1:15. Recommendation for rehab. Thank you for the consultation any questions presents contact the wound care center DNP note has been reviewed and discussed with Dr. Pascual and the impression and plan of care has been directed as dictated. Past Medical History Past Medical History: Atrial Fibrillation, Diabetes Mellitus, Eye Disorder, GERD/Reflux, Hearing Disorder / Deafness, Hyperlipidemia, Hypertension, Neurologic Disorder, Osteoarthritis (OA), Sleep Apnea/CPAP/BIPAP, Thyroid Disorder, Vascular Disorder Additional Past Medical History / Comment(s): "Borderline diabetic", neuropathy bilateral feet/legs, bilateral feet diabetic ulcers/diabetic stasis, occasional bilateral lower leg edema, past bilateral lower leg cellulitis, varicosities, paroxysmal afib, vertigo, bilateral tinnitis, umbilical hernia, MICHELLE but unable to tolerate device, chronic back pain/scoliosis, bilateral eye glaucoma/dry eyes, R eye muscle weakness, benign colon polyps, UTIs. History of Any Multi-Drug Resistant Organisms: None Reported Year Discovered:: 02/04/20 MDRO Source:: ESBL URINE Past Surgical History: Heart Catheterization, Orthopedic Surgery, Tonsillectomy Additional Past Surgical History / Comment(s): Right ankle fracture with ORIF an d some hardware has since been removed, right foot tarsal release, cyst removed from back, R heel debridements, L great toe debridements, colonoscopy with polypectomies, bilateral cataract removal/ lens implants. Past Anesthesia/Blood Transfusion Reactions: No Reported Reaction Smoking Status: Never smoker - Past Family History Mother Family Medical History: Cancer, Renal Disease Additional Family Medical History / Comment(s): colon Father Family Medical History: COPD Additional Family Medical History / Comment(s): father of ephysema at age 74 yrs. Medications and Allergies Home Medications Medication Instructions Recorded Confirmed Type Atorvastatin [Lipitor] 10 mg PO DAILY 05/14/17 03/07/22 History Meclizine [Antivert] 25 mg PO BID 05/14/17 03/07/22 History Omeprazole Magnesium [PriLOSEC OTC] 20 mg PO DAILY 05/14/17 03/07/22 History Rivaroxaban [Xarelto] 20 mg PO W/SUPPER 08/22/17 03/07/22 History Ibuprofen 200 mg PO DAILY PRN 04/22/18 03/07/22 History Levothyroxine Sodium [Synthroid] 50 mcg PO DAILY 04/22/18 03/07/22 History cycloSPORINE [Restasis] 1 drop BOTH EYES DAILY 04/22/18 03/07/22 History Dorzolamide-Timol 2.23%/0.68% 1 drop BOTH EYES BID 06/04/19 03/07/22 History [Cosopt] Potassium Gluconate [Potassium 99 mg PO DAILY 02/04/20 03/07/22 History Gluconate ER] Cholecalciferol [Vitamin D3 (125 125 mcg PO DAILY 03/07/22 03/07/22 History Mcg = 5000 Iu)] Furosemide [Lasix] 20 mg PO DAILY 03/07/22 03/07/22 History Gabapentin [Neurontin] 400 mg PO 5XD 03/07/22 03/07/22 History traMADol HCL [Ultram] 50 mg PO DAILY PRN 03/07/22 03/07/22 History Allergies Allergy/AdvReac Type Severity Reaction Status Date / Time No Known Allergies Allergy Verified 03/07/22 14:23 Physical Exam Vitals: Vital Signs Temp Pulse Pulse Resp BP BP Pulse Ox 03/08/22 04:13 97.8 F 64 16 121/81 96 03/07/22 19:18 97.6 F 74 16 101/69 95 03/07/22 16:55 97.5 F L 54 L 15 141/70 98 03/07/22 15:49 67 16 123/84 97 03/07/22 11:54 97.8 F 70 22 142/76 99 Intake and Output 03/07/22 03/08/22 03/08/22 22:59 06:59 14:59 Intake Total 160 Balance 160 Intake: Oral 160 Other: Voiding Method Toilet # Voids 4 2 Weight 95.254 kg Results CBC & Chem 7: 03/07/22 12:33 03/08/22 05:09 Labs: Abnormal Lab Results - Last 24 Hours (Table) 03/07/22 03/07/22 03/07/22 Range/Units 12:33 12:33 20:14 RBC 3.62 L (3.80-5.40) m/uL Neutrophils # 8.0 H (1.3-7.7) k/uL BUN 27 H (7-17) mg/dL Creatinine 1.11 H (0.52-1.04) mg/dL Glucose 116 H (74-99) mg/dL POC Glucose (mg/dL) 175 H (70-110) mg/dL AST 46 H (14-36) U/L C-Reactive Protein 13.2 H (<1.0) mg/dL Albumin 3.3 L (3.5-5.0) g/dL 03/08/22 Range/Units 05:09 RBC (3.80-5.40) m/uL Neutrophils # (1.3-7.7) k/uL BUN (7-17) mg/dL Creatinine 1.13 H (0.52-1.04) mg/dL Glucose (74-99) mg/dL POC Glucose (mg/dL) (70-110) mg/dL AST (14-36) U/L C-Reactive Protein (<1.0) mg/dL Albumin (3.5-5.0) g/dL Assessment and Plan (1) Non-pressure chronic ulcer of other part of right lower leg with fat layer exposed Current Visit: Yes Status: Acute Code(s): L97.812 - NON-PRS CHRONIC ULCER OTH PRT R LOW LEG W FAT LAYER EXPOSED SNOMED Code(s): 65718357 (2) Stage II pressure ulcer of right heel Current Visit: Yes Status: Acute Code(s): L89.612 - PRESSURE ULCER OF RIGHT HEEL, STAGE 2 SNOMED Code(s): 63854814528118 (3) Non-pressure chronic ulcer of other part of left foot with fat layer exposed Current Visit: Yes Status: Acute Code(s): L97.522 - NON-PRS CHRONIC ULCER OTH PRT LEFT FOOT W FAT LAYER EXPOSED SNOMED Code(s): 102706576
--- NOTE | 2022-03-08 10:20 | P.PN ---
Subjective Progress Note Date: 03/08/22 HISTORY OF PRESENT ILLNESS 66-year-old mildly obese female one of Dr. Garcia patient who has been seen at the wound clinic for long time was known to have history of type 2 diabetes had history of diabetic foot, A. fib with RVR, previous history of severe GERD and hypothyroidism who has been seen at the 1 to clinic for the lost few weeks for nonhealing diabetic foot and ulcerated area on the right foot involving the medial aspect of the heel on the bottom part 8 short of the measure to time 2 inches stage II had been debrided few times and been treated at the wound clinic and as an outpatient. Also has nonhealing ulcerated area on the left big toe was debrided today at the wound clinic and would not stop bleeding. Notice more spreading redness had cellulitis of the left leg after her debridement is completed with a nonhealing ulcerated area in the right foot patient was sent to the emergency department and admitted to the hospital for IV antibiotic and aggressive management. According to patient had MRI recently did not show any osteomyelitis. Patient will be continue on IV antibiotic she was started on Zosyn Will add 1 g of Vanco consult infectious disease and see if we can do culture from decided this point. 03/08: Patient has been afebrile, heart rate 64, blood pressure 121/81, pulse ox 96% on room air. Capillary blood glucose running between 96 and 175. Repeat creatinine 1.13. Patient is continued on vancomycin and Zosyn, consult in place with Dr. Bobo, blood cultures are status received. Wound Center on consult regarding local wound care which has been addressed. PT and OT arm place with plan the patient most likely will require subacute rehab. No new concerns from the patient. Review of Systems CONSTITUTIONAL: Well-developed no acute respiratory distress. Morbidly obese EYES: No icterus sclerae, no conjunctivitis. EARS, NOSE, MOUTH, THROAT, and FACE: No sore throat, lymphadenopathy, carotid bruits or deformity. RESPIRATORY: No SOB cough or wheezes. CARDIOVASCULAR: No CP, Palpitation, PND, Orthopnea, or angina. GASTROINTESTINAL: No Abd pain, Nausea or vomiting, no Diarrhea or constipation, No GI Bleed, no distention or masses. GENITOURINARY: Negative for Hematuria or UTI, no kidney stones. INTEGUMENT/BREAST: Severe arthritis, lower extremity edema, with nonhealing ulcer on the right heel, right medial lower extremity and left great toe. HEMATOLOGIC/LYMPHATIC: Negative for bleed or purpura. MUSCULOSKELTAL: Negative for Myalgia or arthralgia. NEURLOGICAL: No LOC, Sz or syncope, blurred vision dizziness or abnormality.. BEHAVIORAL/PSYCH: Negative. ENDOCRINE: Negative. PHYSICAL EXAMINATION General Appearance: Alert, cooperative, no distress, appears stated age. Morbidly obese. Resting and recliner with legs elevated Neck HEENT: Supple, no lymphadenopathy, no thyroid enlargement, no carotid bruits. Lungs: Decreased breath some bilateral rhonchi no crackles or wheezes. Chest Wall: Decrease expansion with deep inspiration no tenderness and no deformity was found on exam, no costochondral pain or discomfort. Heart: Regular rate and rhythm, S1, S2 normal, no murmur, rub or gallop. Mild PVC. Back: Symmetric, no curvature, ROM normal, no CVA tenderness. Abdomen: Soft, non-tender, bowel sounds active all four quadrants, no masses, no organomegaly. Extremities: Mild edema with significant redness and cellulitis bilaterally worse in the right leg from the knee down with ulcerated area on the right medial plantar calcaneus measure 1.5 time 1.5 cm the exposure as a stage II. Another area on the medial aspect close to the heel side measure 2x2 centimeter again stage II. With the left big toe had on the bottom part and ulcerated area was debrided today still bleeding. Pulses: Decrease pulse bilaterally significant edema. Skin: Skin color, texture, tugor normal, no rashes or lesions. Neurologic: Alert oriented x3 cranial nerves II through XII intact, no motor deficit, not been able to do gait exam. ASSESSMENT AND PLAN - severe cellulitis of the lower extremity worse than the right side left side: Patient was started on vancomycin, will consult infectious disease and one center also continue patient on Zosyn at this point. - severe nonhealing ulcer in the right foot area: Continue wound care dressing per wound care center and change for now and continue to be seen continue IV an tibiotic and treat according to the culture. - Type 2 diabetes: Continue Accu-Chek with sliding scales coverage patient last A1c from September this year was only 6.3 blood sugar was mildly elevated today at 175 with try to keep her blood sugar in the low 100. Metformin 500 mg twice daily added, continue NovoLog scale - A. fib chronic: Patient remain on anticoagulation with Xarelto 20 mg a day pulse rate is under control currently on metoprolol tartrate 12.5 mg twice a day. - chronic edema: Remain on furosemide 20 mg a day. - hyperlipidemia: Remain on Lipitor 10 mg a day. - severe neuropathy: Has been on gabapentin 300 mg 3 times a day. - hypothyroidism: Continue patient on levothyroxine 50 g daily. - chronic pain syndrome: Continue patient on Ultram 50 mg up to 3 times a day as needed. - DVT prophylaxis: Remain on Xarelto. - GI prophylaxis: Remain on pantoprazole 40 mg daily. - CODE STATUS: Full code. DISCHARGE PLAN Subacute rehab. PT and OT consults Impression and plan of care have been directed as dictated by the signing physician. Susanne Schofield nurse practitioner acting as scribe for signing physician. Objective - Vital Signs Vital signs: Vital Signs Temp 97.8 F 03/08/22 04:13 Pulse 64 03/08/22 04:13 Resp 16 03/08/22 04:13 BP 121/81 03/08/22 04:13 Pulse Ox 96 03/08/22 04:13 FiO2 Intake & Output 03/07/22 03/08/22 03/08/22 18:59 06:59 18:59 Intake Total 160 Balance 160 Weight 95.254 kg Intake: Oral 160 Other: Voiding Method Toilet # Voids 4 2 - Labs CBC & Chem 7: 03/07/22 12:33 03/08/22 05:09 Labs: Abnormal Lab Results - Last 24 Hours (Table) 03/07/22 03/07/22 03/07/22 Range/Units 12:33 12:33 20:14 RBC 3.62 L (3.80-5.40) m/uL Neutrophils # 8.0 H (1.3-7.7) k/uL BUN 27 H (7-17) mg/dL Creatinine 1.11 H (0.52-1.04) mg/dL Glucose 116 H (74-99) mg/dL POC Glucose (mg/dL) 175 H (70-110) mg/dL AST 46 H (14-36) U/L C-Reactive Protein 13.2 H (<1.0) mg/dL Albumin 3.3 L (3.5-5.0) g/dL 03/08/22 Range/Units 05:09 RBC (3.80-5.40) m/uL Neutrophils # (1.3-7.7) k/uL BUN (7-17) mg/dL Creatinine 1.13 H (0.52-1.04) mg/dL Glucose (74-99) mg/dL POC Glucose (mg/dL) (70-110) mg/dL AST (14-36) U/L C-Reactive Protein (<1.0) mg/dL Albumin (3.5-5.0) g/dL
[2022-03-08 11:17] LABS: Glucose,Whole Blood 163 mg/dL (70-110)
[2022-03-08] MEDS: DORZOLAMIDE-TIMOLOL 2.23%/0.68 10ML BTL BOTH EYES SCH ×2 (13:54→22:09)
[2022-03-08] MEDS ORDERED: VANCOMYCIN 1,500 MG in SODIUM CHLORIDE 0.9% 250 ML IVPB SCH (14:00)
[2022-03-08 17:09] LABS: Glucose,Whole Blood 108 mg/dL (70-110)
[2022-03-08] MEDS ORDERED: RIVAROXABAN 20 MG TAB PO SCH (17:30)
[2022-03-08 20:38] LABS: Glucose,Whole Blood 121 mg/dL (70-110)
--- NOTE | 2022-03-08 23:28 | P.CONS ---
History of Present Illness - Reason for Consult Consult date: 03/08/22 Right lower extremity nonhealing ulcer and cellulitis Requesting physician: Jean Kinney - Chief Complaint Right leg worsening of the wound and redness x few days - History of Present Illness Patient is a 66-year female with a past medical history significant for chronic nonhealing wound to the right calcaneus and right medial malleolus for the patient to follow at [facility] wound care valentine patient current treatment has been a total contact cast to the right lower extremity which apparently was removed yesterday and the patient was noticed to have significant worsening of the wound and concern for purulent drainage and cellulitis patient subsequently was sent to the [facility] ER for admission to the hospital and IV antibiotic therapy patient on presentation to the hospital was afebrile and no fever have been recorded subsequently patient did have a normal white count with a left shift creatinine was mildly elevated liver enzymes are normal CRP was elevated blood cultures obtained which are currently pending, patient did have x-ray of the foot no acute fracture or dislocation patient is currently being treated with vancomycin and Zosyn, patient currently denies having any worsening pain to the right foot because you have neuropathy she did mention increasing swelling and redness and some drainage but no foul-smelling denies any chest p ain or shortness of breath or cough no abdominal pain no diarrhea Review of Systems Positive point has been mentioned in the HPI rest of the systems are negative Past Medical History Past Medical History: Atrial Fibrillation, Diabetes Mellitus, Eye Disorder, GERD/Reflux, Hearing Disorder / Deafness, Hyperlipidemia, Hypertension, Neurologic Disorder, Osteoarthritis (OA), Sleep Apnea/CPAP/BIPAP, Thyroid Disorder, Vascular Disorder Additional Past Medical History / Comment(s): "Borderline diabetic", neuropathy bilateral feet/legs, bilateral feet diabetic ulcers/diabetic stasis, occasional bilateral lower leg edema, past bilateral lower leg cellulitis, varicosities, paroxysmal afib, vertigo, bilateral tinnitis, umbilical hernia, MICHELLE but unable to tolerate device, chronic back pain/scoliosis, bilateral eye glaucoma/dry eyes, R eye muscle weakness, benign colon polyps, UTIs. History of Any Multi-Drug Resistant Organisms: None Reported Year Discovered:: 02/04/20 MDRO Source:: ESBL URINE Past Surgical History: Heart Catheterization, Orthopedic Surgery, Tonsillectomy Additional Past Surgical History / Comment(s): Right ankle fracture with ORIF and some hardware has since been removed, right foot tarsal release, cyst removed from back, R heel debridements, L great toe debridements, colonoscopy with polypectomies, bilateral cataract removal/ lens implants. Past Anesthesia/Blood Transfusion Reactions: No Reported Reaction Smoking Status: Never smoker - Past Family History Mother Family Medical History: Cancer, Renal Disease Additional Family Medical History / Comment(s): colon Father Family Medical History: COPD Additional Family Medical History / Comment(s): father of ephysema at age 74 yrs. Medications and Allergies Home Medications Medication Instructions Recorded Confirmed Type Atorvastatin [Lipitor] 10 mg PO DAILY 05/14/17 03/07/22 History Meclizine [Antivert] 25 mg PO BID 05/14/17 03/07/22 History Omeprazole Magnesium [PriLOSEC OTC] 20 mg PO DAILY 05/14/17 03/07/22 History Rivaroxaban [Xarelto] 20 mg PO W/SUPPER 08/22/17 03/07/22 History Ibuprofen 200 mg PO DAILY PRN 04/22/18 03/07/22 History Levothyroxine Sodium [Synthroid] 50 mcg PO DAILY 04/22/18 03/07/22 History cycloSPORINE [Restasis] 1 drop BOTH EYES DAILY 04/22/18 03/07/22 History Dorzolamide-Timol 2.23%/0.68% 1 drop BOTH EYES BID 06/04/19 03/07/22 History [Cosopt] Potassium Gluconate [Potassium 99 mg PO DAILY 02/04/20 03/07/22 History Gluconate ER] Cholecalciferol [Vitamin D3 (125 125 mcg PO DAILY 03/07/22 03/07/22 History Mcg = 5000 Iu)] Furosemide [Lasix] 20 mg PO DAILY 03/07/22 03/07/22 History Gabapentin [Neurontin] 400 mg PO 5XD 03/07/22 03/07/22 History traMADol HCL [Ultram] 50 mg PO DAILY PRN 03/07/22 03/07/22 History Allergies Allergy/AdvReac Type Severity Reaction Status Date / Time No Known Allergies Allergy Verified 03/07/22 14:23 Physical Exam Vitals: Vital Signs Temp Pulse Pulse Resp BP BP Pulse Ox 03/08/22 11:42 97.3 F L 62 18 128/84 95 03/08/22 08:25 64 16 03/08/22 04:13 97.8 F 64 16 121/81 96 03/07/22 19:18 97.6 F 74 16 101/69 95 03/07/22 16:55 97.5 F L 54 L 15 141/70 98 03/07/22 15:49 67 16 123/84 97 Intake and Output 03/07/22 03/08/22 03/08/22 22:59 06:59 14:59 Intake Total 160 Balance 160 Intake: Oral 160 Other: Voiding Method Toilet Toilet # Voids 4 2 Weight 95.254 kg GENERAL DESCRIPTION: Elderly female lying in bed, no distress. No tachypnea or accessory muscle of respiration use. HEENT: Shows Pallor , no scleral icterus. Oral mucous membrane is dry. No pharyngeal erythema or thrush NECK: Trachea central, no thyromegaly. LUNGS: Unlabored breathing. Clear to auscultation anteriorly. No wheeze or crackle. HEART: S1, S2, regular rate and rhythm. No loud murmur ABDOMEN: Soft, no tenderness , guarding or rigidity, no organomegaly EXTREMITIES: Right heel and foot area wound with no significant slough tissue did have surrounding swelling or redness mild drainage. SKIN: No rash, no masses palpable. NEUROLOGICAL: The patient is awake, alert, oriented x3, mood and affect normal. Results CBC & Chem 7: 03/07/22 12:33 03/08/22 05:09 Labs: Abnormal Lab Results - Last 24 Hours (Table) 03/07/22 03/07/22 03/08/22 Range/Units 12:33 20:14 05:09 BUN 27 H (7-17) mg/dL Creatinine 1.11 H 1.13 H (0.52-1.04) mg/dL Glucose 116 H (74-99) mg/dL POC Glucose (mg/dL) 175 H (70-110) mg/dL AST 46 H (14-36) U/L C-Reactive Protein 13.2 H (<1.0) mg/dL Albumin 3.3 L (3.5-5.0) g/dL 03/08/22 Range/Units 11:16 BUN (7-17) mg/dL Creatinine (0.52-1.04) mg/dL Glucose (74-99) mg/dL POC Glucose (mg/dL) 163 H (70-110) mg/dL AST (14-36) U/L C-Reactive Protein (<1.0) mg/dL Albumin (3.5-5.0) g/dL Assessment and Plan (1) Diabetic ulcer of right foot Current Visit: Yes Status: Acute Code(s): E11.621 - TYPE 2 DIABETES MELLITUS WITH FOOT ULCER; L97.519 - NON-PRS CHRONIC ULCER OTH PRT RIGHT FOOT W UNSP SEVERITY SNOMED Code(s): 439371692 (2) Cellulitis of right lower limb Current Visit: No Status: Acute Code(s): L03.115 - CELLULITIS OF RIGHT LOWER LIMB SNOMED Code(s): 628542291 Plan: 1patient with right diabetic foot wound infection with secondary cellulitis likely polymicrobial elena with the cultures obtained yesterday showing predominantly gram-negative bacilli. 2patient to continue with Zosyn however discontinue vancomycin decrease risk of nephrotoxicity. 3we will check inflammatory markers. 4local wound care to continue per the wound care team. We will follow on clinical condition and cultures to further adjust medication if needed Thank you for this consultation will follow this patient along with you Time with Patient: Greater than 30
[2022-03-09] MEDS: GABAPENTIN 400 MG CAP PO SCH ×3 (00:34→12:10)
[2022-03-09] MEDS: PIPERACILLIN-TAZOBACTAM 3.375 GM in SODIUM CHLORIDE 0.9% 100 ML IVPB SCH ×2 (00:34→09:17)
[2022-03-09] MEDS: LEVOTHYROXINE 50 MCG TAB PO SCH (05:33)
[2022-03-09 07:12] LABS: Glucose,Whole Blood 87 mg/dL (70-110)
[2022-03-09] MEDS: INSULIN ASPART (NovoLOG) 100 UNIT/ML VIAL SQ SCH ×2 (08:34→11:55)
[2022-03-09] MEDS: metFORMIN 500 MG TAB PO SCH (08:36)
[2022-03-09] MEDS: FAMOTIDINE 20 MG TAB PO SCH (08:36)
[2022-03-09] MEDS: FUROSEMIDE 20 MG TAB PO SCH (08:36)
[2022-03-09] MEDS: ATORVASTATIN 10 MG TAB PO SCH (08:36)
[2022-03-09] MEDS: CHOLECALCIFEROL 125 MCG (5000 IU) TABLET PO SCH (08:36)
[2022-03-09] MEDS: PANTOPRAZOLE 40 MG TABLET PO SCH (08:37)
[2022-03-09] MEDS: DORZOLAMIDE-TIMOLOL 2.23%/0.68 10ML BTL BOTH EYES SCH (08:37)
[2022-03-09] MEDS: cycloSPORINE 0.05% OPHTH 0.4 ML DROPERETTE BOTH EYES SCH (09:18)
[2022-03-09 10:34] LABS: African American GFR (CKD) 59.7 (60.0-200.0); Non-African American GFR(CKD) 51.6 (60.0-200.0)
[2022-03-09 11:25] LABS: Glucose,Whole Blood 87 mg/dL (70-110)
--- NOTE | 2022-03-09 11:38 | P.PN ---
Subjective Progress Note Date: 03/09/22 HISTORY OF PRESENT ILLNESS 66-year-old mildly obese female one of Dr. Garcia patient who has been seen at the wound clinic for long time was known to have history of type 2 diabetes had history of diabetic foot, A. fib with RVR, previous history of severe GERD and hypothyroidism who has been seen at the 1 to clinic for the lost few weeks for nonhealing diabetic foot and ulcerated area on the right foot involving the medial aspect of the heel on the bottom part 8 short of the measure to time 2 inches stage II had been debrided few times and been treated at the wound clinic and as an outpatient. Also has nonhealing ulcerated area on the left big toe was debrided today at the wound clinic and would not stop bleeding. Notice more spreading redness had cellulitis of the left leg after her debridement is completed with a nonhealing ulcerated area in the right foot patient was sent to the emergency department and admitted to the hospital for IV antibiotic and aggressive management. According to patient had MRI recently did not show any osteomyelitis. Patient will be continue on IV antibiotic she was started on Zosyn Will add 1 g of Vanco consult infectious disease and see if we can do culture from decided this point. 03/08: Patient has been afebrile, heart rate 64, blood pressure 121/81, pulse ox 96% on room air. Capillary blood glucose running between 96 and 175. Repeat creatinine 1.13. Patient is continued on vancomycin and Zosyn, consult in place with Dr. Bobo, blood cultures are status received. Wound Center on consult regarding local wound care which has been addressed. PT and OT arm place with plan the patient most likely will require subacute rehab. No new concerns from the patient. 03/09: Patient is continued to be followed by Dr. Bobo with recommendations for Zosyn and discontinued vancomycin. Cultures are in process and currently showing Enterobacter cloacae and Staphylococcus aureus. Capillary blood glucose running between 87 and 163. Patient has been afebrile, heart rate 79, blood pressure 125/84, pulse ox 99% on room air. Discharge plan is for subacute rehab at [facility] or [facility]. PT and OT consults in process. Dr. Bobo has recommended midline, cefepime for 2 weeks. Review of Systems CONSTITUTIONAL: Well-developed no acute respiratory distress. Morbidly obese EYES: No icterus sclerae, no conjunctivitis. EARS, NOSE, MOUTH, THROAT, and FACE: No sore throat, lymphadenopathy, carotid bruits or deformity. RESPIRATORY: No SOB cough or wheezes. CARDIOVASCULAR: No CP, Palpitation, PND, Orthopnea, or angina. GASTROINTESTINAL: No Abd pain, Nausea or vomiting, no Diarrhea or constipation, No GI Bleed, no distention or masses. GENITOURINARY: Negative for Hematuria or UTI, no kidney stones. INTEGUMENT/BREAST: Severe arthritis, lower extremity edema, with nonhealing ulcer on the right heel, right medial lower extremity and left great toe. HEMATOLOGIC/LYMPHATIC: Negative for bleed or purpura. MUSCULOSKELTAL: Negative for Myalgia or arthralgia. NEURLOGICAL: No LOC, Sz or syncope, blurred vision dizziness or abnormality.. BEHAVIORAL/PSYCH: Negative. ENDOCRINE: Negative. PHYSICAL EXAMINATION General Appearance: Alert, cooperative, no distress, appears stated age. Morbidly obese. Resting and recliner with legs elevated Neck HEENT: Supple, no lymphadenopathy, no thyroid enlargement, no carotid bruits. Lungs: Decreased breath some bilateral rhonchi no crackles or wheezes. Chest Wall: Decrease expansion with deep inspiration no tenderness and no deformity was found on exam, no costochondral pain or discomfort. Heart: Regular rate and rhythm, S1, S2 normal, no murmur, rub or gallop. Mild PVC. Back: Symmetric, no curvature, ROM normal, no CVA tenderness. Abdomen: Soft, non-tender, bowel sounds active all four quadrants, no masses, no organomegaly. Extremities: Mild edema with significant redness and cellulitis bilaterally worse in the right leg from the knee down with ulcerated area on the right medial plantar calcaneus measure 1.5 time 1.5 cm the exposure as a stage II. Another area on the medial aspect close to the heel side measure 2x2 centimeter again stage II. With the left big toe had on the bottom part and ulcerated area was debrided today still bleeding. Pulses: Decrease pulse bilaterally significant edema. Skin: Skin color, texture, tugor normal, no rashes or lesions. Neurologic: Alert oriented x3 cranial nerves II through XII intact, no motor deficit, not been able to do gait exam. ASSESSMENT AND PLAN - severe cellulitis of the lower extremity worse than the right side left side: Patient was started on vancomycin, will consult infectious disease and one center also continue patient on Zosyn at this point. - severe nonhealing ulcer in the right foot area: Continue wound care dressing per wound care center and change for now and continue to be seen continue IV antibiotic and treat according to the culture. - Type 2 diabetes: Continue Accu-Chek with sliding scales coverage patient last A1c from September this year was only 6.3 blood sugar was mildly elevated today at 175 with try to keep her blood sugar in the low 100. Metformin 500 mg twice daily added, continue NovoLog scale - A. fib chronic: Patient remain on anticoagulation with Xarelto 20 mg a day pulse rate is under control currently on metoprolol tartrate 12.5 mg twice a day. - chronic edema: Remain on furosemide 20 mg a day. - hyperlipidemia: Remain on Lipitor 10 mg a day. - severe neuropathy: Has been on gabapentin 300 mg 3 times a day. - hypothyroidism: Continue patient on levothyroxine 50 g daily. - chronic pain syndrome: Continue patient on Ultram 50 mg up to 3 times a day as needed. - DVT prophylaxis: Remain on Xarelto. - GI prophylaxis: Remain on pantoprazole 40 mg daily. - CODE STATUS: Full code. DISCHARGE PLAN Subacute rehab at [facility]. PT and OT consults Impression and plan of care have been directed as dictated by the signing physician. Susanne Schofield nurse practitioner acting as scribe for signing physician. Objective - Vital Signs Vital signs: Vital Signs Temp 98.3 F 03/09/22 06:54 Pulse 79 03/09/22 06:54 Resp 17 03/09/22 06:54 BP 125/84 03/09/22 06:54 Pulse Ox 99 03/09/22 05:00 FiO2 Intake & Output 03/08/22 03/09/22 03/09/22 18:59 06:59 18:59 Intake Total 360 200 Balance 360 200 Intake: Intake, IV Titration 200 Amount Piperacillin-Tazobactam 3 200 .375 gm In Sodium Chloride 0.9% 100 ml @ 25 mls/hr IVPB Q8HR [facility] Rx# :[id number] Oral 360 Other: Voiding Method Toilet Toilet # Voids 4 3 # Bowel Movements 1 2 - Labs CBC & Chem 7: 03/07/22 12:33 03/09/22 04:19 Labs: Abnormal Lab Results - Last 24 Hours (Table) 03/08/22 03/08/22 Range/Units 11:16 20:37 POC Glucose (mg/dL) 163 H 121 H (70-110) mg/dL Microbiology - Last 24 Hours (Table) 03/07/22 12:33 Blood Culture - Preliminary Blood No Growth after 24 hours 03/07/22 12:33 Blood Culture - Preliminary Blood No Growth after 24 hours
[2022-03-09 11:43] VITALS: BP 121/62; PULSE 55; RESP 18; TEMP 97.6
--- NOTE | 2022-03-09 11:47 | P.DS ---
Providers Date of admission: 03/07/22 15:26 Expected date of discharge: 03/09/22 Attending physician: Jean Kinney Consults: 03/07/22 21:42 Consult Physician Routine Consulting Provider: Blessing Bobo Consult Reason/Comments: Non healing ulcer of both feet Do you want consulting provider notified?: Yes Primary care physician: [facility] Course: HISTORY OF PRESENT ILLNESS 66-year-old mildly obese female one of Dr. Garcia patient who has been seen at the wound clinic for long time was known to have history of type 2 diabetes had history of diabetic foot, A. fib with RVR, previous history of severe GERD and hypothyroidism who has been seen at the 1 to clinic for the lost few weeks for nonhealing diabetic foot and ulcerated area on the right foot involving the medial aspect of the heel on the bottom part 8 short of the measure to time 2 inches stage II had been debrided few times and been treated at the wound clinic and as an outpatient. Also has nonhealing ulcerated area on the left big toe was debrided today at the wound clinic and would not stop bleeding. Notice more spreading redness had cellulitis of the left leg after her debridement is completed with a nonhealing ulcerated area in the right foot patient was sent to the emergency department and admitted to the hospital for IV antibiotic and aggressive management. According to patient had MRI recently did not show any osteomyelitis. Patient will be continue on IV antibiotic she was started on Zosyn Will add 1 g of Vanco consult infectious disease and see if we can do culture from decided this point. 03/08: Patient has been afebrile, heart rate 64, blood pressure 121/81, pulse ox 96% on room air. Capillary blood glucose running between 96 and 175. Repeat creatinine 1.13. Patient is continued on vancomycin and Zosyn, consult in place with Dr. Bobo, blood cultures are status received. Wound Center on consult regarding local wound care which has been addressed. PT and OT arm place with plan the patient most likely will require subacute rehab. No new concerns from the patient. 03/09: Patient is continued to be followed by Dr. Bobo with recommendations for Zosyn and discontinued vancomycin. Cultures are in process and currently showing Enterobacter cloacae and Staphylococcus aureus. Capillary blood glucose running between 87 and 163. Patient has been afebrile, heart rate 79, blood pressure 125/84, pulse ox 99% on room air. Discharge plan is for subacute rehab at [facility] or [facility]. PT and OT consults in process. Dr. Bobo has recommended midline, cefepime for 2 weeks. DISCHARGE DIAGNOSES - severe cellulitis of the lower extremity worse than the right side left side - severe nonhealing ulcer in the right foot area - Type 2 diabetes - A. fib chronic - chronic edema - hyperlipidemia - severe diabetic neuropathy - hypothyroidism - chronic pain syndrome. DISCHARGE PLAN Subacute rehab at [facility] or [facility]. Greater than 35 minutes was utilized and coordinating patient's discharge. Impression and plan of care have been directed as dictated by the signing physician. Susanne Schofield nurse practitioner acting as scribe for signing physician. Patient Condition at Discharge: Fair Plan - Discharge Summary Discharge Rx Participant: No New Discharge Prescriptions: New metFORMIN HCL [Glucophage] 500 mg PO BID-W/MEALS tab Cefepime [Maxipime] 2 gm IVPB Q8H #42 ml Continue Meclizine [Antivert] 25 mg PO BID Atorvastatin [Lipitor] 10 mg PO DAILY Omeprazole Magnesium [PriLOSEC OTC] 20 mg PO DAILY Rivaroxaban [Xarelto] 20 mg PO W/SUPPER cycloSPORINE [Restasis] 1 drop BOTH EYES DAILY Ibuprofen 200 mg PO DAILY PRN PRN Reason: Pain Levothyroxine Sodium [Synthroid] 50 mcg PO DAILY Dorzolamide-Timol 2.23%/0.68% [Cosopt] 1 drop BOTH EYES BID Potassium Gluconate [Potassium Gluconate ER] 99 mg PO DAILY Furosemide [Lasix] 20 mg PO DAILY Gabapentin [Neurontin] 400 mg PO 5XD #15 cap Cholecalciferol [Vitamin D3 (125 Mcg = 5000 Iu)] 125 mcg PO DAILY Discontinued traMADol HCL [Ultram] 50 mg PO DAILY PRN PRN Reason: Pain Discharge Medication List Atorvastatin [Lipitor] 10 mg PO DAILY 05/14/17 [History] Meclizine [Antivert] 25 mg PO BID 05/14/17 [History] Omeprazole Magnesium [PriLOSEC OTC] 20 mg PO DAILY 05/14/17 [History] Rivaroxaban [Xarelto] 20 mg PO W/SUPPER 08/22/17 [History] Ibuprofen 200 mg PO DAILY PRN 08/20/18 [History] Levothyroxine Sodium [Synthroid] 50 mcg PO DAILY 04/22/18 [History] cycloSPORINE [Restasis] 1 drop BOTH EYES DAILY 04/22/18 [History] Dorzolamide-Timol 2.23%/0.68% [Cosopt] 1 drop BOTH EYES BID 06/04/19 [History] Potassium Gluconate [Potassium Gluconate ER] 99 mg PO DAILY 02/04/20 [History] Cholecalciferol [Vitamin D3 (125 Mcg = 5000 Iu)] 125 mcg PO DAILY 03/07/22 [History] Furosemide [Lasix] 20 mg PO DAILY 03/07/22 [History] Cefepime [Maxipime] 2 gm IVPB Q8H #42 ml 03/09/22 [Rx] Gabapentin [Neurontin] 400 mg PO 5XD #15 cap 03/09/22 [Rx] metFORMIN HCL [Glucophage] 500 mg PO BID-W/MEALS tab 03/09/22 [Rx] Follow up Appointment(s)/Referral(s): Blaze Garcia DO [Primary Care Provider] - 1 Week (After discharge from rehab) Discharge Disposition: TRANSFER TO SNF/ECF
--- NOTE | 2022-03-18 17:55 | P.PN ---
Subjective Progress Note Date: 03/09/22 Principal diagnosis: Right leg wound infection and cellulitis Patient is a [id number] female with a past medical history significant for chronic nonhealing wound to the right calcaneus area with admission to the hospital for right lower extremity wound infection and cellulitis. On today's evaluation that is 03/09/2022, the patient denies having any fever or any chills, the patient denies having any chest pain or shortness of breath or cough overall pain and discomfort to the right leg has decreased in intensity Objective - Vital Signs Vital signs: Vital Signs Temp 98.3 F 03/09/22 06:54 Pulse 79 03/09/22 06:54 Resp 17 03/09/22 06:54 BP 125/84 03/09/22 06:54 Pulse Ox 99 03/09/22 05:00 FiO2 Intake & Output 03/08/22 03/09/22 03/09/22 18:59 06:59 18:59 Intake Total 360 200 Balance 360 200 Intake: Intake, IV Titration 200 Amount Piperacillin-Tazobactam 3 200 .375 gm In Sodium Chloride 0.9% 100 ml @ 25 mls/hr IVPB Q8HR [facility] Rx# :[id number] Oral 360 Other: Voiding Method Toilet Toilet # Voids 4 3 # Bowel Movements 1 2 - Exam GENERAL DESCRIPTION: An elderly female lying in bed in no distress RESPIRATORY SYSTEM: Unlabored breathing , decreased breath sounds at bases HEART: S1 S2 regular rate and rhythm , ABDOMEN: Soft , no tenderness EXTREMITIES: Right lower extremity wound is currently dressed no drainage on the dressing - Labs CBC & Chem 7: 03/07/22 12:33 03/09/22 04:19 Labs: Abnormal Lab Results - Last 24 Hours (Table) 03/08/22 03/08/22 Range/Units 11:16 20:37 POC Glucose (mg/dL) 163 H 121 H (70-110) mg/dL Microbiology - Last 24 Hours (Table) 03/07/22 12:33 Blood Culture - Preliminary Blood No Growth after 24 hours 03/07/22 12:33 Blood Culture - Preliminary Blood No Growth after 24 hours Assessment and Plan (1) Diabetic ulcer of right foot Status: Acute Code(s): E11.621 - TYPE 2 DIABETES MELLITUS WITH FOOT ULCER; L97.519 - NON-PRS CHRONIC ULCER OTH PRT RIGHT FOOT W UNSP SEVERITY SNOMED Code(s): 864522680 (2) Cellulitis of right lower limb Status: Acute Code(s): L03.115 - CELLULITIS OF RIGHT LOWER LIMB SNOMED Code(s): 616225356 Plan: 1patient with right diabetic foot wound infection with secondary cellulitis likely polymicrobial elena with the cultures has been finalized with Klebsiella MSSA and anaerobes, patient got a midline for outpatient IV antibiotics therapy plan is for cefepime and oral Flagyl 2-4 weeks depending upon clinical response and a close outpatient follow-up Time with Patient: Less than 30
== END 2022-03-09 15:44 ==
LOC: EC 11:53 → 5NMEDONC 15:26 → INTOOBSV 15:26 → 5NMEDONC 15:44 → UNDODISIN 03-09 15:44
PROVIDERS: ADMIT Internal Medicine Geriatric Medicine; ATTEND Internal Medicine Geriatric Medicine
DX: E11.52 Type 2 diabetes mellitus with diabetic peripheral angiopathy with gangrene (principal); L03.115 Cellulitis of right lower limb; L97.812 Non-pressure chronic ulcer of other part of right lower leg with fat layer exposed; L97.415 Non-pressure chronic ulcer of right heel and midfoot with muscle involvement without evidence of necrosis; L03.116 Cellulitis of left lower limb; I48.20 Chronic atrial fibrillation, unspecified; I96 Gangrene, not elsewhere classified; L97.525 Non-pressure chronic ulcer of other part of left foot with muscle involvement without evidence of necrosis; L97.319 Non-pressure chronic ulcer of right ankle with unspecified severity; Z68.41 Body mass index [BMI] 40.0-44.9, adult; I10 Essential (primary) hypertension; E03.9 Hypothyroidism, unspecified; E66.01 Morbid (severe) obesity due to excess calories; I83.013 Varicose veins of right lower extremity with ulcer of ankle; I83.025 Varicose veins of left lower extremity with ulcer other part of foot; L89.612 Pressure ulcer of right heel, stage 2; L97.522 Non-pressure chronic ulcer of other part of left foot with fat layer exposed; B95.2 Enterococcus as the cause of diseases classified elsewhere; H40.9 Unspecified glaucoma; I49.3 Ventricular premature depolarization; G89.4 Chronic pain syndrome; B95.8 Unspecified staphylococcus as the cause of diseases classified elsewhere; R78.5 Finding of other psychotropic drug in blood; H91.90 Unspecified hearing loss, unspecified ear; K21.9 Gastro-esophageal reflux disease without esophagitis; E11.628 Type 2 diabetes mellitus with other skin complications; E11.42 Type 2 diabetes mellitus with diabetic polyneuropathy; E11.622 Type 2 diabetes mellitus with other skin ulcer; E11.621 Type 2 diabetes mellitus with foot ulcer; G47.33 Obstructive sleep apnea (adult) (pediatric); E78.5 Hyperlipidemia, unspecified; I48.0 Paroxysmal atrial fibrillation; M54.50 Low back pain, unspecified; M19.90 Unspecified osteoarthritis, unspecified site; Z74.1 Need for assistance with personal care; R74.8 Abnormal levels of other serum enzymes; Z96.1 Presence of intraocular lens; Z79.01 Long term (current) use of anticoagulants; Z79.890 Hormone replacement therapy; Z79.899 Other long term (current) drug therapy; Z79.891 Long term (current) use of opiate analgesic; Z91.81 History of falling; Z87.440 Personal history of urinary (tract) infections; Z86.010 Personal history of colon polyps; Z87.81 Personal history of (healed) traumatic fracture; Z98.41 Cataract extraction status, right eye; Z98.42 Cataract extraction status, left eye; Z82.5 Family history of asthma and other chronic lower respiratory diseases; Z80.0 Family history of malignant neoplasm of digestive organs; Z84.1 Family history of disorders of kidney and ureter
CPT/HCPCS: 96366 ×4; 96367 ×2; 96365; 99285; 36415; 97162; 97166; 36410; 76937; 80053; 82565 ×2; 83605; 85025; 86140; 87040; 73630; G0378 ×3; C1751; J2543 ×3; J3370 ×2; J0696

== ENCOUNTER → 2022-03-30 | Outpatient (CLI) | payer MEDICARE ==
--- NOTE | 2022-04-03 09:14 | US ---
EXAMINATION TYPE: US arterial LE single level DATE OF EXAM: 03/30/2022 3:02 PM CLINICAL HISTORY: L97.412 NON-PRESSURE CHRONIC ULCER OF RT HEEL AND. Chronic ulcer of Rt heel and Lt toe Doppler Waveforms: Right: Predominantly biphasic Left: Biphasic to multiphasic Pulse Volume Recording: Slightly dampened on the right. Ankle-Brachial Indices: Right: 1.27 Left: 1.18 Toe Brachial Indices: Right: 1.04 Left: 1.04 IMPRESSION: Normal JAMAAL and TBI values. Loss of phasicity on the right may be technical, correlate cl inically.
== END | disposition home or self-care (01) ==
LOC: RADUSWWP 13:54
PROVIDERS: ATTEND Thoracic Surgery (Cardiothoracic Vascular Surgery)
DX: L97.412 Non-pressure chronic ulcer of right heel and midfoot with fat layer exposed (principal)
CPT/HCPCS: 93923

== ENCOUNTER 2022-06-19 02:57 | Emergency (ER) | payer MEDICARE ==
[2022-06-19] MEDS ORDERED: DILTIAZEM DRIP BOLUS FROM BAG 1 MG SOLN IV ONE (03:46)
[2022-06-19] MEDS ORDERED: DILTIAZEM 125 MG in SODIUM CHLORIDE 0.9% 100 ML IV SCH (04:00)
[2022-06-19 04:04] LABS: Basophils % (A) 0 %; Eosinophils # (A) 0.1 k/uL (0-0.7); Eosinophils % (A) 0 %; HCT 36.4 % (34.0-46.0); HGB 12.2 gm/dL (11.4-16.0); Hypochromasia Slight; Lymphocytes # (A) 0.8 k/uL (1.0-4.8); Lymphocytes % (A) 6 %; MCH 32.1 pg (25.0-35.0); MCHC 33.6 g/dL (31.0-37.0); MCV 95.3 fL (80.0-100.0); Mean Platelet Volume 8.3; Monocytes # (A) 0.6 k/uL (0-1.0); Monocytes % (A) 4 %; Neutrophils # (A) 13.8 k/uL (1.3-7.7); Neutrophils % (A) 89 %; Platelet Count 336 k/uL (150-450); RBC 3.82 m/uL (3.80-5.40); RDW 15.2 % (11.5-15.5); WBC 15.5 k/uL (3.8-10.6)
[2022-06-19 04:27] LABS: INR 1.3 (<1.2)
[2022-06-19 04:28] LABS: Partial Thromboplastin Time 25.9 sec (22.0-30.0); Prothrombin Time 13.9 sec (9.0-12.0)
[2022-06-19 04:29] LABS: Albumin 3.5 g/dL (3.5-5.0); Calcium 9.2 mg/dL (8.4-10.2); Magnesium 1.9 mg/dL (1.6-2.3); Total Bilirubin 0.6 mg/dL (0.2-1.3); Total Protein 7.4 g/dL (6.3-8.2)
[2022-06-19] MEDS ORDERED: GABAPENTIN 400 MG CAP PO STA (04:47)
--- NOTE | 2022-06-19 04:52 | XR ---
EXAMINATION TYPE: XR chest 1V portable DATE OF EXAM: 06/19/2022 COMPARISON: NONE HISTORY: Syncope TECHNIQUE: Single view FINDINGS: There is no heart failure nor confluent pneumonic infiltrate. Costophrenic angles are clear . There are chest leads. IMPRESSION: No active cardiopulmonary disease.
[2022-06-19 05:09] LABS: Appearance,Urine Clear (Clear); Bilirubin,Urine Negative (Negative); Blood,Urine Negative (Negative); Color,Urine Light Yellow; Glucose,Urine (UA) Negative (Negative); Hyaline Casts,Urine 1 /lpf (0-2); Ketones,Urine Negative (Negative); Leukocyte Esterase,Urine Negative (Negative); Nitrite,Urine Negative (Negative); PH, Urine 7.5 (5.0-8.0); Protein,Urine 1+ (Negative); RBC,Urine <1 /hpf (0-5); Specific Gravity,Urine 1.015 (1.001-1.035); Squamous Epithelial Cell,Urine 1 /hpf (0-4); Urobilinogen,Urine <2.0 mg/dL (<2.0); WBC,Urine 7 /hpf (0-5)
[2022-06-19 05:20] VITALS: RESP 20
--- NOTE | 2022-06-19 07:00 | CT ---
EXAMINATION TYPE: CT brain cspine wo con CT DLP: 1461.2 mGycm, Automated exposure control for dose reduction was used. DATE OF EXAM: 06/19/2022 6:49 AM COMPARISON: CT brain 03/25/2020. CLINICAL INDICATION:Female, 66 years old with history of fall injury; Fall TECHNIQUE: Brain: Multiple axial CT images of the brain were obtained without IV contrast. Cspine: Axial CT images from the skull base to the inferior aspect of T2 we obtained without intraven ous contrast. Coronal and sagittal reformatted images were also reviewed. FINDINGS: Brain: Extra-axial spaces: No abnormal extra-axial fluid collections. Ventricular system: Within normal limits Cerebral parenchyma: No acute intraparenchymal hemorrhage or mass effect. The gonzales-white junction is well differentiated. Scattered hypoattenuating areas are seen within the white matter. Cerebellum: Unremarkable. Mass effect: No evidence of midline shift. Intracranial vasculature: unremarkable Soft tissues: Normal. Calvarium/osseous structures: No depressed skull fracture. Paranasal sinuses and mastoid air cells: Clear. Visualized orbits: Bilateral aphakia Cervical spine: Fracture: None. Osseous structures: Multilevel degenerative disc disease changes with endplate spurring and disc oste ophyte complex's. Multilevel facet arthropathy. Vertebral alignment: Grade 1 anterolisthesis of C2 on C3 likely degenerative. Spinal canal/Neural Foramina: Disc osteophyte complexes at C3-C4, C4-C5, C5-C6, and C6-C7 with at [address] mild spinal canal stenosis. Facet joint uncovertebral joint arthropathy scattered throughout the c ervical spine with varying degrees of neural foraminal stenosis. Neck soft tissues: Prevertebral soft tissues are within normal limits. Other: The airway is patent. The lung apices are clear. Vascular sclerosis. IMPRESSION: 1. No acute intracranial process. 2. Nonspecific white matter changes, likely secondary to chronic small vessel ischemic disease. 3. No evidence of cervical spine fracture. 4. Moderate multilevel degenerative disc disease.
--- NOTE | 2022-06-19 07:46 | ED ---
Syncope HPI - General Chief Complaint: Syncope Stated Complaint: Fall Time Seen by Provider: 06/19/22 03:45 Source: patient Mode of arrival: EMS Limitations: no limitations - History of Present Illness Initial Comments: This patient is a 66-year-old woman who presents to have evaluation after she believes she had passed out while sitting in chair and fallen. She states there is a little bit of mild headache. She does not recall having any chest pain, palpitations, dyspnea, diaphoresis. Patient states now she feels nearly back at her baseline is having a little bit of headache. Patient concerned as taking blood thinner. MD Complaint: collapsed -: hour(s) Prodromal Symptoms: none Witnessed: no Injuries Sustained Associated with Event: Head Current Symptoms: headache Context: at rest - Related Data Home Medications Medication Instructions Recorded Confirmed Atorvastatin [Lipitor] 10 mg PO DAILY 05/14/17 03/07/22 Meclizine [Antivert] 25 mg PO BID 05/14/17 03/07/22 Omeprazole Magnesium [PriLOSEC OTC] 20 mg PO DAILY 05/14/17 03/07/22 Rivaroxaban [Xarelto] 20 mg PO W/SUPPER 08/22/17 03/07/22 Ibuprofen 200 mg PO DAILY PRN 04/22/18 03/07/22 Levothyroxine Sodium [Synthroid] 50 mcg PO DAILY 04/22/18 03/07/22 cycloSPORINE [Restasis] 1 drop BOTH EYES DAILY 04/22/18 03/07/22 Dorzolamide-Timol 2.23%/0.68% 1 drop BOTH EYES BID 06/04/19 03/07/22 [Cosopt] Potassium Gluconate [Potassium 99 mg PO DAILY 02/04/20 03/07/22 Gluconate ER] Cholecalciferol [Vitamin D3 (125 125 mcg PO DAILY 03/07/22 03/07/22 Mcg = 5000 Iu)] Furosemide [Lasix] 20 mg PO DAILY 03/07/22 03/07/22 Previous Rx's Medication Instructions Recorded Cefepime [Maxipime] 2 gm IVPB Q8H #42 ml 03/09/22 Gabapentin [Neurontin] 400 mg PO 5XD #15 cap 03/09/22 metFORMIN HCL [Glucophage] 500 mg PO BID-W/MEALS tab 03/09/22 Allergies Allergy/AdvReac Type Severity Reaction Status Date / Time No Known Allergies Allergy Verified 06/19/22 03:22 Review of Systems ROS Statement: Those systems with pertinent positive or pertinent negative responses have been documented in the HPI. ROS Other: All systems not noted in ROS Statement are negative. Constitutional: Denies: fever, chills Eyes: Denies: eye pain, vision change ENT: Denies: hearing loss, epistaxis Respiratory: Denies: cough, dyspnea Cardiovascular: Reports: syncope. Denies: chest pain, palpitations, edema Gastrointestinal: Denies: abdominal pain, nausea, vomiting Genitourinary: Denies: dysuria, hematuria Musculoskeletal: Denies: back pain Skin: Denies: rash Neurological: Reports: headache. Denies: weakness, numbness, confusion, vertigo Past Medical History Past Medical History: Atrial Fibrillation, Diabetes Mellitus, Eye Disorder, GERD/Reflux, Hearing Disorder / Deafness, Hyperlipidemia, Hypertension, Neurologic Disorder, Osteoarthritis (OA), Sleep Apnea/CPAP/BIPAP, Thyroid Disorder, Vascular Disorder Additional Past Medical History / Comment(s): "Borderline diabetic", neuropathy bilateral feet/legs, bilateral feet diabetic ulcers/diabetic stasis, occasional bilateral lower leg edema, past bilateral lower leg cellulitis, varicosities, paroxysmal afib, vertigo, bilateral tinnitis, umbilical hernia, MICHELLE but unable to tolerate device, chronic back pain/scoliosis, bilateral eye glaucoma/dry eyes, R eye muscle weakness, benign colon polyps, UTIs. History of Any Multi-Drug Resistant Organisms: ESBL Date of last positivie culture/infection: 03/28/22 ESBL MDRO Source:: Urine Past Surgical History: Heart Catheterization, Orthopedic Surgery, Tonsillectomy Additional Past Surgical History / Comment(s): Right ankle fracture with ORIF and some hardware has since been removed, right foot tarsal release, cyst removed from back, R heel debridements, L great toe debridements, colonoscopy with polypectomies, bilateral cataract removal/ lens implants. Past Anesthesia/Blood Transfusion Reactions: No Reported Reaction Past Psychological History: No Psychological Hx Reported Smoking Status: Never smoker - Past Family History Mother Family Medical History: Cancer, Renal Disease Additional Family Medical History / Comment(s): colon Father Family Medical History: COPD Additional Family Medical History / Comment(s): father of ephysema at age 74 yrs. General Exam Limitations: no limitations General appearance: alert, in no apparent distress Head exam: Present: atraumatic, normocephalic, other (Mild tenderness near her occiput. No palpable deformity.) Eye exam: Present: normal appearance, PERRL, EOMI. Absent: scleral icterus, conjunctival injection, nystagmus Neck exam: Present: normal inspection, tenderness, full ROM. Absent: meningismus Respiratory exam: Present: normal lung sounds bilaterally. Absent: respiratory distress, wheezes, rales, rhonchi, stridor Cardiovascular Exam: Present: regular rate, irregular rhythm, normal heart sounds. Absent: systolic murmur, diastolic murmur, rubs, gallop GI/Abdominal exam: Present: soft. Absent: distended, tenderness, guarding, rebound, rigid, mass Extremities exam: Present: normal capillary refill. Absent: pedal edema, calf tenderness Back exam: Present: normal inspection. Absent: CVA tenderness (R), CVA tenderness (L), vertebral tenderness Neurological exam: Present: alert, CN II-XII intact. Absent: motor sensory deficit Skin exam: Present: warm, dry, intact, normal color. Absent: rash Course Vital Signs 06/19/22 06/19/22 06/19/22 03:09 05:18 07:57 Temperature 99.1 F 98 F Pulse Rate 77 49 L 55 L Respiratory 16 20 20 Rate Blood Pressure 112/74 117/75 116/71 O2 Sat by Pulse 94 L 94 L 98 Oximetry EKG Findings - EKG Results: EKG: interpreted by ERMD, normal axis, normal QRS, normal ST/T EKG shows: atrial fibrillation Medical Decision Making - Lab Data Result diagrams: 06/19/22 03:29 06/19/22 03:29 Lab Results 06/19/22 06/19/22 06/19/22 Range/Units 03:29 03:29 03:29 WBC 15.5 H (3.8-10.6) k/uL RBC 3.82 (3.80-5.40) m/uL Hgb 12.2 (11.4-16.0) gm/dL Hct 36.4 (34.0-46.0) % MCV 95.3 (80.0-100.0) fL MCH 32.1 (25.0-35.0) pg MCHC 33.6 (31.0-37.0) g/dL RDW 15.2 (11.5-15.5) % Plt Count 336 (150-450) k/uL MPV 8.3 Neutrophils % 89 % Lymphocytes % 6 % Monocytes % 4 % Eosinophils % 0 % Basophils % 0 % Neutrophils # 13.8 H (1.3-7.7) k/uL Lymphocytes # 0.8 L (1.0-4.8) k/uL Monocytes # 0.6 (0-1.0) k/uL Eosinophils # 0.1 (0-0.7) k/uL Basophils # 0.0 (0-0.2) k/uL Hypochromasia Slight PT 13.9 H (9.0-12.0) sec INR 1.3 H (<1.2) APTT 25.9 (22.0-30.0) sec D-Dimer 0.32 (<0.60) mg/L FEU Sodium 139 (137-145) mmol/L Potassium 4.0 (3.5-5.1) mmol/L Chloride 104 (98-107) mmol/L Carbon Dioxide 24 (22-30) mmol/L Anion Gap 11 mmol/L BUN 25 H (7-17) mg/dL Creatinine 1.22 H (0.52-1.04) mg/dL Est GFR (CKD-EPI)AfAm 53 (>60 ml/min/1.73 sqM) Est GFR (CKD-EPI)NonAf 46 (>60 ml/min/1.73 sqM) Glucose 108 H (74-99) mg/dL Calcium 9.2 (8.4-10.2) mg/dL Magnesium 1.9 (1.6-2.3) mg/dL Total Bilirubin 0.6 (0.2-1.3) mg/dL AST 67 H (14-36) U/L ALT 20 (4-34) U/L Alkaline Phosphatase 66 (38-126) U/L Troponin I (0.000-0.034) ng/mL Total Protein 7.4 (6.3-8.2) g/dL Albumin 3.5 (3.5-5.0) g/dL Urine Color Urine Appearance (Clear) Urine pH (5.0-8.0) Ur Specific [place] (1.001-1.035) Urine Protein (Negative) Urine Glucose (UA) (Negative) Urine Ketones (Negative) Urine Blood (Negative) Urine Nitrite (Negative) Urine Bilirubin (Negative) Urine Urobilinogen (<2.0) mg/dL Ur Leukocyte Esterase (Negative) Urine RBC (0-5) /hpf Urine WBC (0-5) /hpf Ur Squamous Epith Cells (0-4) /hpf Hyaline Casts (0-2) /lpf 06/19/22 06/19/22 Range/Units 03:29 03:49 WBC (3.8-10.6) k/uL RBC (3.80-5.40) m/uL Hgb (11.4-16.0) gm/dL Hct (34.0-46.0) % MCV (80.0-100.0) fL MCH (25.0-35.0) pg MCHC (31.0-37.0) g/dL RDW (11.5-15.5) % Plt Count (150-450) k/uL MPV Neutrophils % % Lymphocytes % % Monocytes % % Eosinophils % % Basophils % % Neutrophils # (1.3-7.7) k/uL Lymphocytes # (1.0-4.8) k/uL Monocytes # (0-1.0) k/uL Eosinophils # (0-0.7) k/uL Basophils # (0-0.2) k/uL Hypochromasia PT (9.0-12.0) sec INR (<1.2) APTT (22.0-30.0) sec D-Dimer (<0.60) mg/L FEU Sodium (137-145) mmol/L Potassium (3.5-5.1) mmol/L Chloride (98-107) mmol/L Carbon Dioxide (22-30) mmol/L Anion Gap mmol/L BUN (7-17) mg/dL Creatinine (0.52-1.04) mg/dL Est GFR (CKD-EPI)AfAm (>60 ml/min/1.73 sqM) Est GFR (CKD-EPI)NonAf (>60 ml/min/1.73 sqM) Glucose (74-99) mg/dL Calcium (8.4-10.2) mg/dL Magnesium (1.6-2.3) mg/dL Total Bilirubin (0.2-1.3) mg/dL AST (14-36) U/L ALT (4-34) U/L Alkaline Phosphatase (38-126) U/L Troponin I 0.014 (0.000-0.034) ng/mL Total Protein (6.3-8.2) g/dL Albumin (3.5-5.0) g/dL Urine Color Light Yellow Urine Appearance Clear (Clear) Urine pH 7.5 (5.0-8.0) Ur Specific [place] 1.015 (1.001-1.035) Urine Protein 1+ H (Negative) Urine Glucose (UA) Negative (Negative) Urine Ketones Negative (Negative) Urine Blood Negative (Negative) Urine Nitrite Negative (Negative) Urine Bilirubin Negative (Negative) Urine Urobilinogen <2.0 (<2.0) mg/dL Ur Leukocyte Esterase Negative (Negative) Urine RBC <1 (0-5) /hpf Urine WBC 7 H (0-5) /hpf Ur Squamous Epith Cells 1 (0-4) /hpf Hyaline Casts 1 (0-2) /lpf Disposition Clinical Impression: Syncope Disposition: HOME SELF-CARE Condition: Good Instructions (If sedation given, give patient instructions): Syncope (ED) Is patient prescribed a controlled substance at d/c from ED?: No Referrals: Blaze Garcia DO [Primary Care Provider] - 1-2 days
[2022-06-19 07:58] VITALS: BP 116/71; PULSE 55; TEMP 98
== END 2022-06-19 08:32 | disposition home or self-care (01) ==
LOC: EC 02:57
DX: R55 Syncope and collapse (principal); I48.91 Unspecified atrial fibrillation; E11.9 Type 2 diabetes mellitus without complications; K21.9 Gastro-esophageal reflux disease without esophagitis; E78.5 Hyperlipidemia, unspecified; I10 Essential (primary) hypertension; M19.90 Unspecified osteoarthritis, unspecified site; G47.30 Sleep apnea, unspecified; E07.9 Disorder of thyroid, unspecified; Z79.02 Long term (current) use of antithrombotics/antiplatelets; Z79.84 Long term (current) use of oral hypoglycemic drugs; Z79.899 Other long term (current) drug therapy; Z79.890 Hormone replacement therapy
CPT/HCPCS: 36415; 70450; 71045; 72125; 80053; 81001; 83735; 84484; 85025; 85379; 85610; 85730; 93005; 99285

== ENCOUNTER 2022-07-11 06:50 | Day surgery (SDC) | payer MEDICARE ==
[2022-07-11] MEDS ORDERED: LACTATED RINGERS 1,000 ML IV SCH (07:10)
[2022-07-11] MEDS ORDERED: LIDOCAINE 1% (10MG/ML) FOR IV START INTRADERMA PRN (07:10)
[2022-07-11 07:37] LABS: Glucose,Whole Blood 111 mg/dL (70-110)
[2022-07-11] MEDS ORDERED: LACTATED RINGERS 1,000 ML IV ONE (07:39)
[2022-07-11 07:41] VITALS: TEMP 98.7
[2022-07-11] MEDS ORDERED: PROPOFOL 10 MG/ML 20 ML VIAL IV ONE (08:12)
--- NOTE | 2022-07-11 08:31 | P.PCN ---
Date of Procedure: 07/11/22 Procedure(s) Performed: BRIEF HISTORY: Patient is a 67-year-old pleasant white female scheduled for an elective colonoscopy as a part of evaluation of intermittent rectal bleeding for the last several months duration. PROCEDURE PERFORMED: Colonoscopy with biopsy. PREOPERATIVE DIAGNOSIS: Intermittent rectal bleeding. IV sedation per Anesthesia. PROCEDURE: After informed consent was obtained, the patient, was brought into the endoscopy unit. IV sedation was administered by Anesthesia under continuous monitoring. Digital rectal examination was normal. Initially the Olympus CF-160 flexible video colonoscope was then inserted in the rectum, gradually advanced into the cecum without any difficulty. Careful examination was performed as the scope was gradually being withdrawn. Ileocecal valve and the appendiceal orifice were visualized and appeared normal. Prep was excellent. Mucosa of the cecum, appeared normal. In the ascending colon there was a 3-4 mm polyp that was removed by cold biopsy. Rest of the ascending colon, transverse colon, descending colon, sigmoid colon, and rectum appeared normal. Scattered sigmoid diverticula cyst seen. Retroflexion was performed in the rectum and small internal hemorrhoids were seen. The patient tolerated the procedure well. IMPRESSION: 3-4 mm sessile ascending colon polyp status post cold biopsy Scattered sigmoid diverticulosis Small internal hemorrhoids RECOMMENDATIONS: Findings of this examination were discussed with the patient as well as a family.. She was advised to follow with the biopsy results. If the biopsy result adenoma she can have a repeat colonoscopy in 5 years. In the meantime recommend a high-fiber diet and avoid straining and constipation.
[2022-07-11 09:18] VITALS: BP 124/82; PULSE 70; RESP 16
== END 2022-07-11 09:40 | disposition home or self-care (01) ==
LOC: ORWHC2ENDO 06:50
PROVIDERS: ATTEND Internal Medicine Gastroenterology
DX: D12.2 Benign neoplasm of ascending colon (principal); K62.5 Hemorrhage of anus and rectum; K57.30 Diverticulosis of large intestine without perforation or abscess without bleeding; K64.8 Other hemorrhoids; I10 Essential (primary) hypertension; E78.5 Hyperlipidemia, unspecified; I48.91 Unspecified atrial fibrillation; K21.9 Gastro-esophageal reflux disease without esophagitis
CPT/HCPCS: 88305; 45380; J2704

== ENCOUNTER 2022-09-14 14:12 | Observation (INO) | payer MEDICARE ==
--- NOTE | 2022-09-14 15:52 | ED ---
Skin/Abscess/FB HPI - General Chief complaint: Skin/Abscess/Foreign Body Stated complaint: Celulitis sent from wound center Time Seen by Provider: 09/14/22 15:13 Source: patient, RN notes reviewed Mode of arrival: ambulatory Limitations: no limitations - History of Present Illness Initial comments: This is a 67-year-old female who presents to the emergency department for an infection in both feet. She was sent over from the wound clinic after being tr eated with Bactrim for 4 days for an open wound on the bottom of the right heel and the bottom of the left great toe. States that these wounds have been an ongoing issue for her since last year and they tend to fluctuate in terms of their severity. She does have diabetic neuropathy and has no associated pain. Denies any fevers. Denies any fevers, chills, sore throat, cough, dyspnea, chest pain, palpitations, abdominal pain, nausea, vomiting, diarrhea, back pain, or headaches. MD complaint: other (cellulitis) Tetanus Up to Date: yes - Related Data Home Medications Medication Instructions Recorded Confirmed Atorvastatin [Lipitor] 10 mg PO DAILY 05/14/17 09/14/22 Meclizine [Antivert] 25 mg PO BID 05/14/17 09/14/22 Omeprazole Magnesium [PriLOSEC OTC] 20 mg PO DAILY 05/14/17 09/14/22 Rivaroxaban [Xarelto] 20 mg PO W/SUPPER 08/22/17 09/14/22 Ibuprofen 200 mg PO DAILY PRN 04/22/18 09/14/22 Levothyroxine Sodium [Synthroid] 50 mcg PO DAILY 04/22/18 09/14/22 cycloSPORINE [Restasis] 1 drop BOTH EYES BID 04/22/18 09/14/22 Dorzolamide-Timol 2.23%/0.68% 1 drop BOTH EYES BID 06/04/19 09/14/22 [Cosopt] Potassium Gluconate [Potassium 99 mg PO DAILY 02/04/20 09/14/22 Gluconate ER] Cholecalciferol [Vitamin D3 (125 125 mcg PO DAILY 03/07/22 09/14/22 Mcg = 5000 Iu)] Furosemide [Lasix] 40 mg PO DAILY 03/07/22 09/14/22 Netarsudil Mesylat/Latanoprost 1 drop BOTH EYES BID 07/07/22 09/14/22 [Rocklatan 0.02%-0.005% Eye Drp] traMADol HCL 50 mg PO DAILY PRN 07/07/22 09/14/22 Docusate [Colace] 100 mg PO DAILY PRN 09/14/22 09/14/22 Sulfamethoxazole/Trimethoprim 1 tab PO BID 09/14/22 09/14/22 [Bactrim DS 800-160 mg] Previous Rx's Medication Instructions Recorded Gabapentin [Neurontin] 400 mg PO 5XD #15 cap 03/09/22 Allergies Allergy/AdvReac Type Severity Reaction Status Date / Time No Known Allergies Allergy Verified 09/14/22 17:29 Review of Systems ROS Statement: Those systems with pertinent positive or pertinent negative responses have been documented in the HPI. ROS Other: All systems not noted in ROS Statement are negative. Past Medical History Past Medical History: Atrial Fibrillation, Diabetes Mellitus, Eye Disorder, GERD/Reflux, Hearing Disorder / Deafness, Hyperlipidemia, Hypertension, Neurologic Disorder, Osteoarthritis (OA), Sleep Apnea/CPAP/BIPAP, Thyroid Disorder, Vascular Disorder Additional Past Medical History / Comment(s): "Borderline diabetic", neuropathy bilateral feet/legs, bilateral feet diabetic ulcers/diabetic stasis, occasional bilateral lower leg edema, past bilateral lower leg cellulitis, varicosities, paroxysmal afib, vertigo, bilateral tinnitis, umbilical hernia, MICHELLE but unable to tolerate device, chronic back pain/scoliosis, bilateral eye glaucoma/dry eyes, R eye muscle weakness, benign colon polyps, UTIs. History of Any Multi-Drug Resistant Organisms: ESBL Date of last positivie culture/infection: 03/28/22 ESBL MDRO Source:: Urine Past Surgical History: Heart Catheterization, Orthopedic Surgery, Tonsillectomy Additional Past Surgical History / Comment(s): Right ankle fracture with ORIF and some hardware has since been removed, right foot tarsal release, cyst removed from back, R heel debridements, L great toe debridements, colonoscopy with polypectomies, bilateral cataract removal/ lens implants. Past Anesthesia/Blood Transfusion Reactions: No Reported Reaction Past Psychological History: No Psychological Hx Reported Smoking Status: Never smoker Past Alcohol Use History: None Reported Past Drug Use History: None Reported - Past Family History Mother Family Medical History: Cancer, Renal Disease Additional Family Medical History / Comment(s): colon Father Family Medical History: COPD Additional Family Medical History / Comment(s): father of ephysema at age 74 yrs. General Exam Limitations: no limitations General appearance: alert, in no apparent distress Head exam: Present: atraumatic, normocephalic, normal inspection Respiratory exam: Present: normal lung sounds bilaterally. Absent: respiratory distress, wheezes, rales, rhonchi, stridor Cardiovascular Exam: Present: regular rate, normal rhythm, normal heart sounds. Absent: systolic murmur, diastolic murmur, rubs, gallop, clicks Extremities exam: Present: other (2 x 3 cm ulceration to the bottom of the right heel. Erythema, swelling, and increased heat going up the right leg and terminating around the mid calf. 1cm open ulceration to the bottom of the left great toe.) Neurological exam: Present: alert, oriented X3, CN II-XII intact Psychiatric exam: Present: normal affect, normal mood Course Vital Signs 09/14/22 14:28 Temperature 96.7 F L Pulse Rate 68 Respiratory 18 Rate Blood Pressure 123/81 O2 Sat by Pulse 99 Oximetry Medical Decision Making - Medical Decision Making This is a 67-year-old female who presents emergency department for cellulitis. Was pt. sent in by a medical professional or institution? @ -No Did you speak to anyone other than the patient for history? @ -No Did you review nursing and triage notes? @ -Agree, accurate with regards to the patient's symptoms. Were old charts reviewed? @ -No Differential Diagnosis? @ -Cellulitis, abscess, DVT, vasculitis, gout, septic arthritis, this is not meant to be an all-inclusive list. X-rays interpreted by me (1pt min.)? @ -X-rays of the bilateral feet obtained. My interpretation reveals no evidence of subcutaneous gas formation or fractures. What testing was considered but not performed? (CT, X-rays, U/S, labs)? Why? @ -None What meds were considered but not given? Why? @ -None Did you discuss the management of the patient with other professionals? @ -Yes, [place] Crow with [facility] who accepts the patient for admission. Did you reconcile home meds? @ -No Was smoking cessation discussed for >3mins.? @ -No Was critical care preformed (if so, how long)? @ -No Were there social determinants of health that impacted care today? How? (Homelessness, low income, unemployed, alcoholism, drug addiction, transportation, low edu. Level, literacy, decrease access to med. care, longterm, rehab)? @ -No Was there de-escalation of care discussed even if they declined? (Discuss DNR or withdrawal of care, Hospice)? @ -No What co-morbidities impacted this encounter? (DM, HTN, Smoking, COPD, CAD, Cancer, CVA, Hep., AIDS, mental health diagnosis, sleep apnea, morbid obesity)? @ -DM, morbid obesity, hypertension, hyperlipidemia, vascular disorder. Was patient admitted / discharged? @ -Admitted. X-rays of the bilateral feet obtained with no evidence of bony destruction or subcutaneous gas formation. Lab work obtained revealing no evidence of leukocytosis, however inflammatory markers are very elevated. Given the persistence of these wounds with her multiple comorbidities and failed outpatient management, will admit to medicine for IV antibiotics. Patient started on IV vancomycin with blood cultures obtained prior. Infectious disease consult placed per admitting team's request. Drug Therapy requiring intensive monitoring for toxicity (Heparin, Nitro, Insulin, Cardizem)? @ -None Were any procedures done? @ -None Diagnosis/symptom? @ -Cellulitis Acute, or Chronic, or Acute on Chronic? @ -Acute on chronic Uncomplicated (without systemic symptoms) or Complicated (systemic symptoms)? @ -Complicated Side effects of treatment? @ -None at this time, however she could have an adverse reaction to antibiotics. Exacerbation, Progression, or Severe Exacerbation] @ -Not applicable Poses a threat to life or bodily function? @ -Yes This case was discussed in detail with the attending ED physician. Presentation, findings, and treatment plan discussed in detail as well. - Lab Data Result diagrams: 09/14/22 15:57 09/14/22 15:57 Lab Results 09/14/22 09/14/22 09/14/22 Range/Units 15:57 15:57 15:57 WBC 8.9 (3.8-10.6) k/uL RBC 3.80 (3.80-5.40) m/uL Hgb 11.8 (11.4-16.0) gm/dL Hct 36.4 (34.0-46.0) % MCV 95.6 (80.0-100.0) fL MCH 31.0 (25.0-35.0) pg MCHC 32.4 (31.0-37.0) g/dL RDW 15.9 H (11.5-15.5) % Plt Count 366 (150-450) k/uL MPV 7.4 Neutrophils % 80 % Lymphocytes % 12 % Monocytes % 5 % Eosinophils % 2 % Basophils % 0 % Neutrophils # 7.1 (1.3-7.7) k/uL Lymphocytes # 1.0 (1.0-4.8) k/uL Monocytes # 0.4 (0-1.0) k/uL Eosinophils # 0.1 (0-0.7) k/uL Basophils # 0.0 (0-0.2) k/uL ESR 102 H (0-20) mm/hr Sodium 137 (137-145) mmol/L Potassium 5.5 H (3.5-5.1) mmol/L Chloride 104 (98-107) mmol/L Carbon Dioxide 27 (22-30) mmol/L Anion Gap 6 mmol/L BUN 22 H (7-17) mg/dL Creatinine 1.29 H (0.52-1.04) mg/dL Est GFR (CKD-EPI)AfAm 49 (>60 ml/min/1.73 sqM) Est GFR (CKD-EPI)NonAf 42 (>60 ml/min/1.73 sqM) Glucose 87 (74-99) mg/dL Plasma Lactic Acid [place] 1.2 (0.7-2.0) mmol/L Calcium 9.2 (8.4-10.2) mg/dL Total Bilirubin 0.6 (0.2-1.3) mg/dL AST 36 (14-36) U/L ALT 18 (4-34) U/L Alkaline Phosphatase 62 (38-126) U/L C-Reactive Protein 4.3 H (<1.0) mg/dL Total Protein 7.9 (6.3-8.2) g/dL Albumin 3.8 (3.5-5.0) g/dL - Radiology Data Radiology results: report reviewed, image reviewed Disposition Clinical Impression: Cellulitis Disposition: ADMITTED IP TO THIS HOSP
--- NOTE | 2022-09-14 16:00 | XR ---
EXAMINATION TYPE: XR foot complete bilateral DATE OF EXAM: 09/14/2022 CLINICAL HISTORY: Pain and swelling. Findings centered left first toe and right calcaneus. TECHNIQUE: Frontal, lateral, and oblique images of the bilateral feet are obtained. COMPARISON: Right foot x-ray March 07, 2022 FINDINGS: Overlying bandage or gauze material first toe level left foot is seen. No suspicious bony d estruction is identified. Osseous structures are demineralized. Calcaneal spurring is seen. Images of the right foot show surgical change in the hindfoot from arthrodesis at the tibiotalar joint. No dez picious bony destruction of the calcaneus. No significant ulceration or subcutaneous gas noted. IMPRESSION: There is no convincing radiographic evidence for acute osteomyelitis in either foot.
[2022-09-14 16:38] LABS: Basophils % (A) 0 %; Eosinophils # (A) 0.1 k/uL (0-0.7); Eosinophils % (A) 2 %; HCT 36.4 % (34.0-46.0); HGB 11.8 gm/dL (11.4-16.0); Lymphocytes % (A) 12 %; MCHC 32.4 g/dL (31.0-37.0); MCV 95.6 fL (80.0-100.0); Mean Platelet Volume 7.4; Monocytes # (A) 0.4 k/uL (0-1.0); Monocytes % (A) 5 %; Neutrophils # (A) 7.1 k/uL (1.3-7.7); Neutrophils % (A) 80 %; Platelet Count 366 k/uL (150-450); RDW 15.9 % (11.5-15.5); WBC 8.9 k/uL (3.8-10.6)
[2022-09-14 17:01] LABS: Albumin 3.8 g/dL (3.5-5.0); C Reactive Protein 4.3 mg/dL (<1.0); Calcium 9.2 mg/dL (8.4-10.2); Potassium 5.5 mmol/L (3.5-5.1); Total Bilirubin 0.6 mg/dL (0.2-1.3); Total Protein 7.9 g/dL (6.3-8.2)
[2022-09-14 17:49] LABS: Erythrocyte Sedimentation Rate 102 mm/hr (0-20)
[2022-09-14] MEDS ORDERED: VANCOMYCIN IV PER PHARMACY 1 EACH MISC MISCELLANE PRN (18:13)
[2022-09-14] MEDS ORDERED: VANCOMYCIN 1,500 MG in SODIUM CHLORIDE 0.9% 500 ML 500 ML IVPB STA (18:23)
[2022-09-14] MEDS ORDERED: NALOXONE 0.4 MG/ML 1 ML VIAL IV PRN (19:17)
[2022-09-14] MEDS ORDERED: ACETAMINOPHEN TAB 325 MG TAB PO PRN (19:17)
[2022-09-14] MEDS ORDERED: ONDANSETRON 4 MG/2 ML VIAL IVP PRN (19:17)
[2022-09-14] MEDS: RIVAROXABAN 20 MG TAB PO SCH (20:12)
[2022-09-14] MEDS: GABAPENTIN 400 MG CAP PO SCH (20:12)
[2022-09-14] MEDS: NON FORMULARY DRUG (Netarsudil Mesylat/Latanoprost [Rocklatan 0.02%-0.005% Eye Drp] 2.5 ML BOTH EYES SCH (22:02)
[2022-09-14] MEDS: cycloSPORINE 0.05% OPHTH 0.4 ML DROPERETTE BOTH EYES SCH (22:50)
[2022-09-14] MEDS: DORZOLAMIDE-TIMOLOL 2.23%/0.68 10ML BTL BOTH EYES SCH (22:50)
[2022-09-14] MEDS: MECLIZINE 25 MG TAB PO SCH (22:52)
[2022-09-15] MEDS: HYDROcodone/APAP 5-325MG 1 EACH TAB PO PRN ×2 (02:39→22:47)
[2022-09-15] MEDS: GABAPENTIN 400 MG CAP PO SCH ×2 (05:20→11:55)
[2022-09-15] MEDS: ATORVASTATIN 10 MG TAB PO SCH (08:30)
[2022-09-15] MEDS: CHOLECALCIFEROL 125 MCG (5000 IU) TABLET PO SCH (08:30)
[2022-09-15] MEDS: PANTOPRAZOLE 40 MG TABLET PO SCH (08:30)
[2022-09-15] MEDS: cycloSPORINE 0.05% OPHTH 0.4 ML DROPERETTE BOTH EYES SCH (08:31)
[2022-09-15] MEDS: FUROSEMIDE 40 MG TAB PO SCH (08:31)
[2022-09-15] MEDS: LEVOTHYROXINE 50 MCG TAB PO SCH (08:31)
[2022-09-15] MEDS: MECLIZINE 25 MG TAB PO SCH ×2 (08:31→22:31)
[2022-09-15] MEDS: DORZOLAMIDE-TIMOLOL 2.23%/0.68 10ML BTL BOTH EYES SCH ×2 (09:38→22:33)
[2022-09-15] MEDS: NON FORMULARY DRUG (Netarsudil Mesylat/Latanoprost [Rocklatan 0.02%-0.005% Eye Drp] 2.5 ML BOTH EYES SCH ×2 (09:40→20:27)
[2022-09-15] MEDS: NON FORMULARY DRUG (Potassium Gluconate [Potassium Gluconate Er] 99 MG Tablet.Er) PO SCH (09:40)
[2022-09-15] MEDS ORDERED: DOCUSATE 100 MG CAP PO PRN (09:58)
[2022-09-15] MEDS ORDERED: VANCOMYCIN 1,250 MG in SODIUM CHLORIDE 0.9% 250 ML IVPB SCH ×2 (12:00→19:00)
--- NOTE | 2022-09-15 15:06 | P.HPIM ---
History of Present Illness H&P Date: 09/15/22 This is a 67 year old female who follows with Dr. Garcia, medical history of atrial fibrillation anticoagulated with xarelto, diabetes, GERD, hypertension, hyperlipidemia, sleep apnea, thyroid disorder, peripheral neuropathy, sleep apena. She lives in an apartment, does not drive. He has family that helps take her to appointments. Most of her meals consist of frozen dinners. Presents to the hospital from the wound care clinic after failing outpatient therapy for nonhealing wounds one on the right heel and on the bottom of the left great toe. Wounds have been present over the last year. Wound cultures were taken of the right heel wound on 09/07/2021 showing staphylococcus aureus and strep agalactiae. She was being treated outpatient with oral bactrim without much improvement in her symptoms. She does present now with significant redness to her right lower rodriguez and ankle and drainage from both wounds. Right foot xray showing no evidence for osteomyelitis. No white count on admission. BUN 22, creatinine 1.29. Blood glucose is 87. Most recent A1C from 09/07/22 is 6.5. Blood culture preliminary showing gram positive cocci in clusters. Patient has been started on IV vancomycin and infectious disease has been consulted for further evaluation. REVIEW OF SYSTEMS: CONSTITUTIONAL: No fever, no malaise, no fatigue. HEENT: No recent visual problems or hearing problems. Denied any sore throat. CARDIOVASCULAR: No chest pain, orthopnea, PND, no palpitations, no syncope. PULMONARY: No shortness of breath, no cough, no hemoptysis. GASTROINTESTINAL: No diarrhea, no nausea, no vomiting, no abdominal pain. NEUROLOGICAL: No headaches, no weakness, no numbness. HEMATOLOGICAL: Denies any bleeding or petechiae. GENITOURINARY: Denies any burning micturition, frequency, or urgency. MUSCULOSKELETAL/RHEUMATOLOGICAL: Denies any joint pain, swelling, or any muscle pain. Reports nonhealing wound on right heel and left great toe ENDOCRINE: Denies any polyuria or polydipsia. The rest of the 14-point review of systems is negative. PHYSICAL EXAMINATION: GENERAL: The patient is alert and oriented x3, not in any acute distress. Well developed, well nourished. Obese. HEENT: Pupils are round and equally reacting to light. EOMI. No scleral icterus. No conjunctival pallor. Normocephalic, atraumatic. No pharyngeal erythema. No thyromegaly. CARDIOVASCULAR: S1 and S2 present. No murmurs, rubs, or gallops. PULMONARY: Chest is clear to auscultation, no wheezing or crackles. ABDOMEN: Soft, nontender, nondistended, normoactive bowel sounds. No palpable organomegaly. MUSCULOSKELETAL: No joint swelling or deformity. EXTREMITIES: No cyanosis, clubbing, or pedal edema. NEUROLOGICAL: Gross neurological examination did not reveal any focal deficits. SKIN: There is ulceration to the right heel with serosanguineous drainage and also cellulitis to the right rodriguez and ankle. There is ulcer to the bottom of the left great toe. Assessment and Plan Assessment Bilateral chronic nonhealing wounds right heal/left great toe with right lower extremity cellulitis positive wound cultures done outpatient and failed outpatient antibiotic therapy Gram positive bacteremia Mild acute kidney injury patient is on multiple medications that are nephrotoxic Hyperkalemia from [facility] Paroxysmal atrial fibrillation anticoagulated with xarelto currently bradycardic History of sick sinus syndrome with known bradycardia Diabetes mellitus with neuropathy, diet controlled Hypertension History hyperlipidemia Obstructive sleep apnea does not use device Glaucoma, bilateral Coronary artery disease Gastroesophageal reflux disease GI prophylaxis DVT prophylaxis Full Code Plan Repeat blood cultures ID following for wound care and antibiotic recommendations Resume appropriate home medication Amlodipine added for blood pressure control Check TSH/EKG for bradycardia Repeat BMP in AM The impression and plan of care has been dictated by Evon Hathaway, Nurse Practitioner as directed. Dr. Treasure MD I have performed a history and physical examination and medical decision making of this patient, discussed the same with the dictator, and agree with the dictators assessment and plan as written, documented as a scribe. Based on total visit time, I have performed more than 50% of this visit. Past Medical History Past Medical History: Atrial Fibrillation, Diabetes Mellitus, Eye Disorder, GERD/Reflux, Hearing Disorder / Deafness, Hyperlipidemia, Hypertension, Neurologic Disorder, Osteoarthritis (OA), Sleep Apnea/CPAP/BIPAP, Thyroid Disorder, Vascular Disorder Additional Past Medical History / Comment(s): "Borderline diabetic", neuropathy bilateral feet/legs, bilateral feet diabetic ulcers/diabetic stasis, occasional bilateral lower leg edema, past bilateral lower leg cellulitis, varicosities, paroxysmal afib, vertigo, bilateral tinnitis, umbilical hernia, MICHELLE but unable t o tolerate device, chronic back pain/scoliosis, bilateral eye glaucoma/dry eyes, R eye muscle weakness, benign colon polyps, UTIs. History of Any Multi-Drug Resistant Organisms: ESBL Date of last positivie culture/infection: 03/28/22 ESBL MDRO Source:: Urine Past Surgical History: Heart Catheterization, Orthopedic Surgery, Tonsillectomy Additional Past Surgical History / Comment(s): Right ankle fracture with ORIF and some hardware has since been removed, right foot tarsal release, cyst removed from back, R heel debridements, L great toe debridements, colonoscopy with polypectomies, bilateral cataract removal/ lens implants. Past Anesthesia/Blood Transfusion Reactions: No Reported Reaction Past Psychological History: No Psychological Hx Reported Additional Psychological History / Comment(s): Pt resides at [facility] alone. She recently started visits with [facility]. She goes to [facility] wound care. She uses a walker to ambulate. She does not drive, her family takes her to her appts. Smoking Status: Never smoker Past Alcohol Use History: None Reported Past Drug Use History: None Reported - Past Family History Mother Family Medical History: Cancer, Renal Disease Additional Family Medical History / Comment(s): colon Father Family Medical History: COPD Additional Family Medical History / Comment(s): father of ephysema at age 74 yrs. Medications and Allergies Home Medications Medication Instructions Recorded Confirmed Type Atorvastatin [Lipitor] 10 mg PO DAILY 05/14/17 09/14/22 History Meclizine [Antivert] 25 mg PO BID 05/14/17 09/14/22 History Omeprazole Magnesium [PriLOSEC OTC] 20 mg PO DAILY 05/14/17 09/14/22 History Rivaroxaban [Xarelto] 20 mg PO W/SUPPER 08/22/17 09/14/22 History Ibuprofen 200 mg PO DAILY PRN 04/22/18 09/14/22 History Levothyroxine Sodium [Synthroid] 50 mcg PO DAILY 04/22/18 09/14/22 History cycloSPORINE [Restasis] 1 drop BOTH EYES BID 04/22/18 09/14/22 History Dorzolamide-Timol 2.23%/0.68% 1 drop BOTH EYES BID 06/04/19 09/14/22 History [Cosopt] Potassium Gluconate [Potassium 99 mg PO DAILY 02/04/20 09/14/22 History Gluconate ER] Cholecalciferol [Vitamin D3 (125 125 mcg PO DAILY 03/07/22 09/14/22 History Mcg = 5000 Iu)] Furosemide [Lasix] 40 mg PO DAILY 03/07/22 09/14/22 History Gabapentin [Neurontin] 400 mg PO 5XD #15 cap 03/09/22 09/14/22 Rx Netarsudil Mesylat/Latanoprost 1 drop BOTH EYES BID 07/07/22 09/14/22 History [Rocklatan 0.02%-0.005% Eye Drp] traMADol HCL 50 mg PO DAILY PRN 07/07/22 09/14/22 History Docusate [Colace] 100 mg PO DAILY PRN 09/14/22 09/14/22 History Sulfamethoxazole/Trimethoprim 1 tab PO BID 09/14/22 09/14/22 History [Bactrim DS 800-160 mg] Allergies Allergy/AdvReac Type Severity Reaction Status Date / Time No Known Allergies Allergy Verified 09/14/22 17:29 Physical Exam Vitals: Vital Signs Temp Pulse Pulse Pulse Resp BP BP 09/15/22 07:42 97.3 F L 50 L 17 133/72 09/15/22 02:00 97.9 F 52 L 16 134/83 09/14/22 21:41 97.4 F L 64 16 152/62 09/14/22 20:00 73 16 145/78 09/14/22 14:28 96.7 F L 68 18 123/81 Pulse Ox 09/15/22 07:42 93 L 09/15/22 02:00 96 09/14/22 21:41 96 09/14/22 20:00 95 09/14/22 14:28 99 Intake and Output 09/14/22 09/15/22 09/15/22 22:59 06:59 14:59 Intake Total 120 590 Balance 120 590 Intake: Oral 120 590 Other: # Voids 2 Weight 92.079 kg Results CBC & Chem 7: 09/14/22 15:57 09/14/22 15:57 Labs: Abnormal Lab Results - Last 24 Hours (Table) 09/14/22 09/14/22 Range/Units 15:57 15:57 RDW 15.9 H (11.5-15.5) % ESR 102 H (0-20) mm/hr Potassium 5.5 H (3.5-5.1) mmol/L BUN 22 H (7-17) mg/dL Creatinine 1.29 H (0.52-1.04) mg/dL C-Reactive Protein 4.3 H (<1.0) mg/dL Thrombosis Risk Factor Assmnt - Choose All That Apply Any of the Below Risk Factors Present?: Yes Each Factor Represents 1 point: Obesity (BMI >25), Swollen legs (current) Each Risk Factor Represents 2 Points: Age 61-74 years Thrombosis Risk Factor Assessment Total Risk Factor Score: 4 Thrombosis Risk Factor Assessment Level: Moderate Risk Assessment and Plan Time with Patient: Less than 30
[2022-09-15] MEDS ORDERED: amLODIPine 5 MG TAB PO SCH (15:15)
--- NOTE | 2022-09-15 16:05 | CT ---
EXAMINATION TYPE: CT foot RT wo con DATE OF EXAM: 09/15/2022 COMPARISON: Radiograph 09/14/2022 and 03/07/2022 HISTORY: 67-year-old female Right heel abscess TECHNIQUE: Contiguous axial scanning of the right foot without IV contrast. Coronal and sagittal yina nstructions performed. Reconstructions generated on a dedicated independent workstation. CT DLP: 183.1 mGycm Automated exposure control for dose reduction was used. FINDINGS: There is osteopenia and osteoarthritic change throughout the tibiotalar, medial and anterior subtalar , talonavicular, and medial intercuneiform joints. Some generalized soft tissue swelling is noted. Smooth delineation to the Achilles tendon. There is a shallow along the plantar aspect of the heel suggested. Underlying inflammatory edema whic h extends to directly contact the underlying bone. However, no discrete lytic destruction is seen. Old healed fracture deformities lateral malleolus and posterior malleolus in previous cortical screw fixation of the medial malleolus. Marilyn. IMPRESSION: 1. SUGGESTION OF A SHALLOW WOUND ALONG THE PLANTAR ASPECT OF THE HEEL. INFLAMMATORY EDEMA EXTENDS FRO M HERE TO CONTACT THE UNDERLYING CALCANEAL BONE. HOWEVER, THERE IS NO LYTIC BONY DESTRUCTION TO SUGGE ST OSTEOMYELITIS AT THIS TIME. IF PERSISTENT CONCERN, CONSIDER SHORT INTERVAL FOLLOW-UP. 2. OLD HEALED TRIMALLEOLAR ANKLE FRACTURES WITH POSTTRAUMATIC TIBIOTALAR JOINT OA. ADDITIONAL SCATTER ED MID AND HINDFOOT OA OUTLINED ABOVE.
[2022-09-15] MEDS: RIVAROXABAN 20 MG TAB PO SCH (16:29)
[2022-09-15] MEDS: GABAPENTIN 300 MG CAP PO SCH ×2 (16:29→22:31)
--- NOTE | 2022-09-15 22:27 | P.CONS ---
History of Present Illness - Reason for Consult Consult date: 09/15/22 Cellulitis failed Outpatient Requesting physician: Linda Rangel - Chief Complaint Increasing swelling redness to the right lower extremity x few days - History of Present Illness Patient is a 67-year-old female with a past medical history significant for diabetes mellitus hypertension hyperlipidemia peripheral neuropathy this patient apparently did have a chronic nonhealing wound to the right heel area and the plantar aspect of the left big toe for the patient to follow up right [facility] patient was recently diagnosed with cellulitis and has been treated with the Bactrim DS however the patient did not have any improvement patient noticed to have increasing swelling redness of the right lower extremity for the patient has been sent to the for further evaluation, patient presented to the hospital was afebrile and no fever, subse quently patient did have normal white count however she did have a little 102 B- has been mildly elevated potassium is 5.5 liver enzymes are normal patient did have x-ray of the foot which did not show any convincing evidence of osteomyelitis patient did have blood culture drawn came back positive with gram- positive cocci patient was started on vancomycin and infectious disease was consulted for further management of antibiotic therapy patient will have diabetic neuropathy denies significant pain and sensation to the right foot from pressure sensation with associated swelling redness. No drainage and denies having any diarrhea with antibiotic therapy as Review of Systems Positive point has been mentioned in the HPI rest of the systems are negative Past Medical History Past Medical History: Atrial Fibrillation, Diabetes Mellitus, Eye Disorder, GERD/Reflux, Hearing Disorder / Deafness, Hyperlipidemia, Hypertension, Ne urologic Disorder, Osteoarthritis (OA), Sleep Apnea/CPAP/BIPAP, Thyroid Disorder, Vascular Disorder Additional Past Medical History / Comment(s): "Borderline diabetic", neuropathy bilateral feet/legs, bilateral feet diabetic ulcers/diabetic stasis, occasional bilateral lower leg edema, past bilateral lower leg cellulitis, varicosities, paroxysmal afib, vertigo, bilateral tinnitis, umbilical hernia, MICHELLE but unable to tolerate device, chronic back pain/scoliosis, bilateral eye glaucoma/dry eyes, R eye muscle weakness, benign colon polyps, UTIs. History of Any Multi-Drug Resistant Organisms: ESBL Year Discovered:: 03/28/22 ESBL MDRO Source:: Urine Past Surgical History: Heart Catheterization, Orthopedic Surgery, Tonsillectomy Additional Past Surgical History / Comment(s): Right ankle fracture with ORIF and some hardware has since been removed, right foot tarsal release, cyst removed from back, R heel debridements, L great toe debridements, colonoscopy with polypectomies, bilateral cataract removal/ lens implants. Past Anesthesia/Blood Transfusion Reactions: No Reported Reaction Past Psychological History: No Psychological Hx Reported Additional Psychological History / Comment(s): Pt resides at [facility] alone. She recently started visits with [facility]. She goes to [facility] wound care. She uses a walker to ambulate. She does not drive, her family takes her to her appts. Smoking Status: Never smoker Past Alcohol Use History: None Reported Past Drug Use History: None Reported - Past Family History Mother Family Medical History: Cancer, Renal Disease Additional Family Medical History / Comment(s): colon Father Family Medical History: COPD Additional Family Medical History / Comment(s): father of ephysema at age 74 yrs. Medications and Allergies Home Medications Medication Instructions Recorded Confirmed Type Atorvastatin [Lipitor] 10 mg PO DAILY 05/14/17 09/14/22 History Meclizine [Antivert] 25 mg PO BID 05/14/17 09/14/22 History Omeprazole Magnesium [PriLOSEC OTC] 20 mg PO DAILY 05/14/17 09/14/22 History Rivaroxaban [Xarelto] 20 mg PO W/SUPPER 08/22/17 09/14/22 History Ibuprofen 200 mg PO DAILY PRN 04/22/18 09/14/22 History Levothyroxine Sodium [Synthroid] 50 mcg PO DAILY 04/22/18 09/14/22 History cycloSPORINE [Restasis] 1 drop BOTH EYES BID 04/22/18 09/14/22 History Dorzolamide-Timol 2.23%/0.68% 1 drop BOTH EYES BID 06/04/19 09/14/22 History [Cosopt] Potassium Gluconate [Potassium 99 mg PO DAILY 02/04/20 09/14/22 History Gluconate ER] Cholecalciferol [Vitamin D3 (125 125 mcg PO DAILY 03/07/22 09/14/22 History Mcg = 5000 Iu)] Furosemide [Lasix] 40 mg PO DAILY 03/07/22 09/14/22 History Netarsudil Mesylat/Latanoprost 1 drop BOTH EYES BID 07/07/22 09/14/22 History [Rocklatan 0.02%-0.005% Eye Drp] traMADol HCL 50 mg PO DAILY PRN 07/07/22 09/14/22 History Docusate [Colace] 100 mg PO DAILY PRN 09/14/22 09/14/22 History Cephalexin [Keflex] 500 mg PO Q6HR 10 Days #40 cap 09/19/22 Rx Gabapentin [Neurontin] 300 mg PO TID 3 Days #9 cap 09/20/22 Rx Hyoscyamine Sulfate [Levbid] 0.375 mg PO BID #60 tab 09/20/22 Rx Allergies Allergy/AdvReac Type Severity Reaction Status Date / Time No Known Allergies Allergy Verified 09/14/22 17:29 Physical Exam Vitals: Vital Signs Temp Pulse Pulse Pulse Resp BP BP 09/15/22 07:42 97.3 F L 50 L 17 133/72 09/15/22 02:00 97.9 F 52 L 16 134/83 09/14/22 21:41 97.4 F L 64 16 152/62 09/14/22 20:00 73 16 145/78 09/14/22 14:28 96.7 F L 68 18 123/81 Pulse Ox 09/15/22 07:42 93 L 09/15/22 02:00 96 09/14/22 21:41 96 09/14/22 20:00 95 09/14/22 14:28 99 Intake and Output 09/14/22 09/15/22 09/15/22 22:59 06:59 14:59 Intake Total 120 590 Balance 120 590 Intake: Oral 120 590 Other: Voiding Method Toilet # Voids 2 Weight 92.079 kg GENERAL DESCRIPTION: Elderly female lying in bed, no distress. No tachypnea or accessory muscle of respiration use. HEENT: Shows Pallor , no scleral icterus. Oral mucous membrane is dry. No pharyngeal erythema or thrush NECK: Trachea central, no thyromegaly. LUNGS: Unlabored breathing. Clear to auscultation anteriorly. No wheeze or crackle. HEART: S1, S2, regular rate and rhythm. No loud murmur ABDOMEN: Soft, no tenderness , guarding or rigidity, no organomegaly EXTREMITIES: Right heel Ulceration No Significant Slough Tissue She Did Have a Swelling and Redness to the Right Lower Leg Which Is Warm and Dry to Touch SKIN: No rash, no masses palpable. NEUROLOGICAL: The patient is awake, alert, oriented x3, mood and affect normal. Results CBC & Chem 7: 09/14/22 15:57 09/16/22 05:30 Labs: Abnormal Lab Results - Last 24 Hours (Table) 09/14/22 09/14/22 Range/Units 15:57 15:57 RDW 15.9 H (11.5-15.5) % ESR 102 H (0-20) mm/hr Potassium 5.5 H (3.5-5.1) mmol/L BUN 22 H (7-17) mg/dL Creatinine 1.29 H (0.52-1.04) mg/dL C-Reactive Protein 4.3 H (<1.0) mg/dL Assessment and Plan (1) Cellulitis of right lower limb Status: Acute Code(s): L03.115 - CELLULITIS OF RIGHT LOWER LIMB SNOMED C ode(s): 377903727 (2) Diabetic ulcer of right foot Status: Acute Code(s): E11.621 - TYPE 2 DIABETES MELLITUS WITH FOOT ULCER; L97.519 - NON-PRS CHRONIC ULCER OTH PRT RIGHT FOOT W UNSP SEVERITY SNOMED Cod e(s): 655280459 Plan: 1patient with right diabetic foot infection concerning for cellulitis failing outpatient oral Bactrim DS therapy in this patient x-ray was negative for any bony changes however the patient did have diffuse swelling redness the need to rule out underlying abscess and may need to be drained. 2patient with a positive blood culture with gram-positive cocci likely related to the right diabetic foot infection. 3renal insufficiency and high risk of nephrotoxicity. 4We will obtain CT of the right foot without contrast to make sure no evidence of any abscess that may need to be drained. 5Vancomycin pharmacy to dose target trough of 15 while watching kidney function and Vanco trough closely. We will follow on clinical condition and cultures to further adjust medication if needed Thank you for this consultation will follow this patient with you Time with Patient: Greater than 30
[2022-09-15] MEDS: AMPICILLIN-SULBACTAM 3 GM in SODIUM CHLORIDE 0.9% 100 ML IVPB SCH (22:35)
[2022-09-16] MEDS: cycloSPORINE 0.05% OPHTH 0.4 ML DROPERETTE BOTH EYES SCH ×3 (00:56→22:11)
[2022-09-16] MEDS: AMPICILLIN-SULBACTAM 3 GM in SODIUM CHLORIDE 0.9% 100 ML IVPB SCH ×4 (04:33→23:23)
[2022-09-16 05:57] LABS: African American GFR (CKD) 65 (>60 ml/min/1.73 sqM); Anion Gap 7 mmol/L; Blood Urea Nitrogen 19 mg/dL (7-17); Calcium 9.3 mg/dL (8.4-10.2); Carbon Dioxide 22 mmol/L (22-30); Chloride 110 mmol/L (98-107); Glucose 95 mg/dL (74-99); Non-African American GFR(CKD) 57 (>60 ml/min/1.73 sqM); Potassium 4.5 mmol/L (3.5-5.1); Sodium 139 mmol/L (137-145)
[2022-09-16] MEDS: DORZOLAMIDE-TIMOLOL 2.23%/0.68 10ML BTL BOTH EYES SCH ×2 (08:20→21:12)
[2022-09-16] MEDS: FUROSEMIDE 40 MG TAB PO SCH (08:20)
[2022-09-16] MEDS: PANTOPRAZOLE 40 MG TABLET PO SCH (08:20)
[2022-09-16] MEDS: ATORVASTATIN 10 MG TAB PO SCH (08:20)
[2022-09-16] MEDS: CHOLECALCIFEROL 125 MCG (5000 IU) TABLET PO SCH (08:20)
[2022-09-16] MEDS: GABAPENTIN 300 MG CAP PO SCH ×3 (08:21→21:13)
[2022-09-16] MEDS: MECLIZINE 25 MG TAB PO SCH ×2 (08:21→21:13)
[2022-09-16] MEDS: LEVOTHYROXINE 50 MCG TAB PO SCH (08:21)
[2022-09-16] MEDS: NON FORMULARY DRUG (Netarsudil Mesylat/Latanoprost [Rocklatan 0.02%-0.005% Eye Drp] 2.5 ML BOTH EYES SCH ×2 (08:46→21:17)
[2022-09-16] MEDS: NON FORMULARY DRUG (Potassium Gluconate [Potassium Gluconate Er] 99 MG Tablet.Er) PO SCH (08:47)
[2022-09-16] MEDS ORDERED: NON FORMULARY DRUG (Omeprazole Magnesium [Prilosec Otc] 20 MG Tablet.Dr) PO SCH (09:00)
--- NOTE | 2022-09-16 15:41 | P.PN ---
Subjective Progress Note Date: 09/16/22 Principal diagnosis: Right heel wound and right leg cellulitis Patient is a 67-year-old female with a past medical history significant for diabetes mellitus hypertension hyperlipidemia peripheral neuropathy this patient apparently did have a chronic nonhealing wound to the right heel area and the plantar aspect of the left big toe, presented to the hospital with increasing swelling redness right leg failing outpatient Bactrim DS therapy. On today's evaluation that is 09/16/2022, the patient denies having any fever or chills, the patient denies pain to the right lower extremity because of her underlying neuropathy no chest pain shortness of cough no abdominal pain and no diarrhea Objective - Vital Signs Vital signs: Vital Signs Temp 97.5 F L 09/16/22 07:04 Pulse 82 09/16/22 07:04 Resp 18 09/16/22 07:04 BP 143/90 09/16/22 07:04 Pulse Ox 91 L 09/16/22 07:04 FiO2 Intake & Output 09/15/22 09/16/22 09/16/22 18:59 06:59 18:59 Intake Total 590 Balance 590 Intake: Oral 590 Other: Voiding Method Toilet Toilet Toilet # Voids 4 3 - Exam GENERAL DESCRIPTION: An elderly female lying in bed in no distress RESPIRATORY SYSTEM: Unlabored breathing , decreased breath sounds at bases HEART: S1 S2 regular rate and rhythm , ABDOMEN: Soft , no tenderness EXTREMITIES: Right heel wound is currently dressed minimal drainage right leg redness has slightly decreased - Labs CBC & Chem 7: 09/14/22 15:57 09/16/22 05:30 Labs: Abnormal Lab Results - Last 24 Hours (Table) 09/16/22 Range/Units 05:30 Chloride 110 H (98-107) mmol/L BUN 19 H (7-17) mg/dL Microbiology - Last 24 Hours (Table) 09/16/22 04:00 Anaerobic Culture - Preliminary Heel - Right 09/16/22 04:00 Wound Culture - Preliminary Foot - Right 09/14/22 18:45 Blood Culture Gram Stain - Preliminary Blood 09/14/22 18:45 Blood Culture - Final Blood 09/14/22 19:00 Blood Culture Gram Stain - Preliminary Blood Blood Culture - Preliminary Coagulase Negative Staph 09/14/22 19:00 Blood Culture - Final Blood Assessment and Plan (1) Cellulitis of right lower limb Current Visit: No Status: Acute Code(s): L03.115 - CELLULITIS OF RIGHT LOWER LIMB SNOMED Code(s): 721625078 (2) Diabetic ulcer of left foot Current Visit: No Status: Acute Code(s): E11.621 - TYPE 2 DIABETES MELLITUS WITH FOOT ULCER; L97.529 - NON-PRESSURE CHRONIC ULCER OTH PRT LEFT FOOT W UNSP SEVERITY SNOMED Code(s): 429890615 (3) Diabetic ulcer of right foot Current Visit: No Status: Acute Code(s): E11.621 - TYPE 2 DIABETES MELLITUS WITH FOOT ULCER; L97.519 - NON-PRS CHRONIC ULCER OTH PRT RIGHT FOOT W UNSP SEVERITY SNOMED Code(s): 090778128 Plan: 1patient with right diabetic foot infection concerning for cellulitis failing outpatient oral Bactrim DS therapy in this patient x-ray was negative for any bony changes however the patient did have diffuse swelling redness , patient did have a CT of the right foot that was negative for any abscess however mentioning wound tracking down to the calcaneus but no bony destruction however the patient did have elevated sed rate of 102 and high clinical suspicious for osteomyelitis. We will order a bone scan 2patient with a positive blood culture with gram-positive cocci has been finalized and staph epi more likely skin contamination 3 local wound care to the right heel and left big toe wound with dry Aquacel silver dressing changed every 48 hour 4patient antibiotics has been adjusted to Unasyn 3 g every 6 hours to continue while waiting for cultures to finalize Time with Patient: Less than 30
[2022-09-16] MEDS: RIVAROXABAN 20 MG TAB PO SCH (17:56)
--- NOTE | 2022-09-16 22:09 | P.PN ---
Subjective Progress Note Date: 09/16/22 This is a 67 year old female who follows with Dr. Garcia, medical history of atrial fibrillation anticoagulated with xarelto, diabetes, GERD, hypertension, hyperlipidemia, sleep apnea, thyroid disorder, peripheral neuropathy, sleep apena. She lives in an apartment, does not drive. He has family that helps take her to appointments. Most of her meals consist of frozen dinners. Presents to the hospital from the wound care clinic after failing outpatient therapy for nonhealing wounds one on the right heel and on the bottom of the left great toe. Wounds have been present over the last year. Wound cultures were taken of the right heel wound on 09/07/2021 showing staphylococcus aureus and strep agalac tiae. She was being treated outpatient with oral bactrim without much improvement in her symptoms. She does present now with significant redness to her right lower rodriguez and ankle and drainage from both wounds. Right foot xray showing no evidence for osteomyelitis. No white count on admission. BUN 22, creatinine 1.29. Blood glucose is 87. Most recent A1C from 09/07/22 is 6.5. Blood culture preliminary showing gram positive cocci in clusters. Patient has been started on IV vancomycin and infectious disease has been consulted for further evaluation. 09/16/2022 No acute events overnight. Patient continues on IV antibiotics in the form of IV unasyn. Repeat wound cultures are pending and blood cultures showing Coagulase negative staphylococcus which is likely a contamination. Repeat blood culture negative at 24 hours. Patient had right foot CT done showing shallow wound along the heel there is inflammatory edema from there to contact the underlying calcaneal bone. No evidence to suggest osteomyelitis but follow up recommended. Patient is scheduled to undergo a bone scan of the right heel wound. Local wound care recommended with aquacel silver to the right heel wound and also the left great toe to change every 48 hours. Potassium has improved to 4.5. BUN 19, creatinine 1.09. Review of Systems Constitutional: Denied any fatigue denied any fever. Cardio vascular: denied any chest pain, palpitations Gastrointestinal: denied any nausea, vomiting, diarrhea Pulmonary: Denied any shortness of breath cough Neurologic denied any new focal deficits All inpatient medications were reviewed and appropriate changes in these medications as dictated in the interval history and assessment and plan. PHYSICAL EXAMINATION: GENERAL: The patient is alert and oriented x3, not in any acute distress. Well developed, well nourished. Obese. HEENT: Pupils are round and equally reacting to light. EOMI. No scleral icterus. No conjunctival pallor. Normocephalic, atraumatic. No pharyngeal erythema. No thyromegaly. CARDIOVASCULAR: S1 and S2 present. No murmurs, rubs, or gallops. PULMONARY: Chest is clear to auscultation, no wheezing or crackles. ABDOMEN: Soft, nontender, nondistended, normoactive bowel sounds. No palpable organomegaly. MUSCULOSKELETAL: No joint swelling or deformity. EXTREMITIES: No cyanosis, clubbing, or pedal edema. NEUROLOGICAL: Gross neurological examination did not reveal any focal deficits. SKIN: There is ulceration to the right heel with serosanguineous drainage and also cellulitis to the right rodriguez and ankle. There is ulcer to the bottom of the left great toe. Assessment and Plan Assessment Bilateral chronic nonhealing wounds right heal/left great toe with right lower extremity cellulitis positive wound cultures done outpatient and failed outpat ient antibiotic therapy Gram positive bacteremia Mild acute kidney injury patient is on multiple medications that are nephrotoxic, improved after stopping the oral bactrim. Hyperkalemia from [facility] Paroxysmal atrial fibrillation anticoagulated with xarelto currently bradycardic History of sick sinus syndrome with known bradycardia Diabetes mellitus with neuropathy, diet controlled Hypertension History hyperlipidemia Obstructive sleep apnea does not use device Glaucoma, bilateral Coronary artery disease Gastroesophageal reflux disease GI prophylaxis DVT prophylaxis Full Code Plan Wound cultures pending, continue with local wound care as recommended. Infectious disease following and patient continues on IV antibiotics Bone scan has been ordered to rule out osteomyelitis of the right heel wound PT/OT have been consulted as well. The impression and plan of care has been dictated by Evon Hathaway, Nurse Practitioner as directed. Dr. Treasure MD I have performed a history and physical examination and medical decision making of this patient, discussed the same with the dictator, and agree with the dictators assessment and plan as written, documented as a scribe. Based on total visit time, I have performed more than 50% of this visit. Objective - Vital Signs Vital signs: Vital Signs Temp 97.5 F L 09/16/22 07:04 Pulse 82 09/16/22 07:04 Resp 18 09/16/22 07:04 BP 143/90 09/16/22 07:04 Pulse Ox 91 L 09/16/22 07:04 FiO2 Intake & Output 09/15/22 09/16/22 09/16/22 18:59 06:59 18:59 Intake Total 590 Balance 590 Intake: Oral 590 Other: Voiding Method Toilet Toilet # Voids 4 3 - Labs CBC & Chem 7: 09/14/22 15:57 09/16/22 05:30 Labs: Abnormal Lab Results - Last 24 Hours (Table) 09/16/22 Range/Units 05:30 Chloride 110 H (98-107) mmol/L BUN 19 H (7-17) mg/dL Microbiology - Last 24 Hours (Table) 09/14/22 18:45 Blood Culture - Final Blood 09/14/22 19:00 Blood Culture Gram Stain - Preliminary Blood Blood Culture - Preliminary Coagulase Negative Staph 09/14/22 19:00 Blood Culture - Final Blood Assessment and Plan Time with Patient: Less than 30
[2022-09-16] MEDS: HYDROcodone/APAP 5-325MG 1 EACH TAB PO PRN (23:26)
[2022-09-17] MEDS: AMPICILLIN-SULBACTAM 3 GM in SODIUM CHLORIDE 0.9% 100 ML IVPB SCH ×4 (05:58→22:25)
[2022-09-17] MEDS: PANTOPRAZOLE 40 MG TABLET PO SCH (08:31)
[2022-09-17] MEDS: CHOLECALCIFEROL 125 MCG (5000 IU) TABLET PO SCH (08:31)
[2022-09-17] MEDS: ATORVASTATIN 10 MG TAB PO SCH (08:31)
[2022-09-17] MEDS: cycloSPORINE 0.05% OPHTH 0.4 ML DROPERETTE BOTH EYES SCH ×2 (08:31→22:20)
[2022-09-17] MEDS: MECLIZINE 25 MG TAB PO SCH ×2 (08:32→22:20)
[2022-09-17] MEDS: DORZOLAMIDE-TIMOLOL 2.23%/0.68 10ML BTL BOTH EYES SCH ×2 (08:32→22:21)
[2022-09-17] MEDS: LEVOTHYROXINE 50 MCG TAB PO SCH (08:32)
[2022-09-17] MEDS: GABAPENTIN 300 MG CAP PO SCH ×3 (08:32→22:20)
[2022-09-17] MEDS: FUROSEMIDE 40 MG TAB PO SCH (08:32)
[2022-09-17] MEDS: NON FORMULARY DRUG (Netarsudil Mesylat/Latanoprost [Rocklatan 0.02%-0.005% Eye Drp] 2.5 ML BOTH EYES SCH ×2 (10:26→22:27)
[2022-09-17] MEDS: NON FORMULARY DRUG (Potassium Gluconate [Potassium Gluconate Er] 99 MG Tablet.Er) PO SCH (10:26)
--- NOTE | 2022-09-17 16:14 | P.PN ---
Subjective Progress Note Date: 09/17/22 This is a 67 year old female who follows with Dr. Garcia, medical history of atrial fibrillation anticoagulated with xarelto, diabetes, GERD, hypertension, hyperlipidemia, sleep apnea, thyroid disorder, peripheral neuropathy, sleep apena. She lives in an apartment, does not drive. He has family that helps take her to appointments. Most of her meals consist of frozen dinners. Presents to the hospital from the wound care clinic after failing outpatient therapy for nonhealing wounds one on the right heel and on the bottom of the left great toe. Wounds have been present over the last year. Wound cultures were taken of the right heel wound on 09/07/2021 showing staphylococcus aureus and strep agalac tiae. She was being treated outpatient with oral bactrim without much improvement in her symptoms. She does present now with significant redness to her right lower rodriguez and ankle and drainage from both wounds. Right foot xray showing no evidence for osteomyelitis. No white count on admission. BUN 22, creatinine 1.29. Blood glucose is 87. Most recent A1C from 09/07/22 is 6.5. Blood culture preliminary showing gram positive cocci in clusters. Patient has been started on IV vancomycin and infectious disease has been consulted for further evaluation. 09/16/2022 No acute events overnight. Patient continues on IV antibiotics in the form of IV unasyn. Repeat wound cultures are pending and blood cultures showing Coagulase negative staphylococcus which is likely a contamination. Repeat blood culture negative at 24 hours. Patient had right foot CT done showing shallow wound along the heel there is inflammatory edema from there to contact the underlying calcaneal bone. No evidence to suggest osteomyelitis but follow up recommended. Patient is scheduled to undergo a bone scan of the right heel wound. Local wound care recommended with aquacel silver to the right heel wound and also the left great toe to change every 48 hours. Potassium has improved to 4.5. BUN 19, creatinine 1.09. 09/17/2022 Patient is evaluated today on medical floor. No acute events overnight. She continues on IV antibiotics and local wound care to right heel and left great toe. She will undergo bone scan tomorrow. Wound cultures are currently pending and blood culture repeat showing coagulase negative staph which is likely a contaminent species. Infectious disease is following closely. 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 She has been bradycardic this hospital stay with EKG showing atrial fibrillation with possible competing junction rhythm. TSH is normal at 1.190. Review of Systems Constitutional: Denied any fatigue denied any fever. Cardio vascular: denied any chest pain, palpitations Gastrointestinal: denied any nausea, vomiting, diarrhea Pulmonary: Denied any shortness of breath cough Neurologic denied any new focal deficits All inpatient medications were reviewed and appropriate changes in these medications as dictated in the interval history and assessment and plan. PHYSICAL EXAMINATION: GENERAL: The patient is alert and oriented x3, not in any acute distress. Well d eveloped, well nourished. Obese. HEENT: Pupils are round and equally reacting to light. EOMI. No scleral icterus. No conjunctival pallor. Normocephalic, atraumatic. No pharyngeal erythema. No thyromegaly. CARDIOVASCULAR: S1 and S2 present. No murmurs, rubs, or gallops. PULMONARY: Chest is clear to auscultation, no wheezing or crackles. ABDOMEN: Soft, nontender, nondistended, normoactive bowel sounds. No palpable organomegaly. MUSCULOSKELETAL: No joint swelling or deformity. EXTREMITIES: No cyanosis, clubbing, or pedal edema. NEUROLOGICAL: Gross neurological examination did not reveal any focal deficits. SKIN: There is ulceration to the right heel with serosanguineous drainage and also cellulitis to the right rodriguez and ankle. There is ulcer to the bottom of the left great toe. Assessment and Plan Assessment Bilateral chronic nonhealing wounds right heal/left great toe with right lower extremity cellulitis positive wound cultures done outpatient and failed outpatient antibiotic therapy Gram positive bacteremia likely contamination ID following Mild acute kidney injury patient is on multiple medications that are nephrotoxic, improved after stopping the oral bactrim. Hyperkalemia from [facility] Paroxysmal atrial fibrillation anticoagulated with xarelto currently bradycardic/possible junctional underlying patient is asymptomatic History of sick sinus syndrome with known bradycardia Diabetes mellitus with neuropathy, diet controlled Hypertension History hyperlipidemia Obstructive sleep apnea does not use device Glaucoma, bilateral Coronary artery disease Gastroesophageal reflux disease GI prophylaxis DVT prophylaxis Full Code Plan Wound cultures pending, continue with local wound care as recommended. Infectious disease following and patient continues on IV antibiotics Bone scan has been ordered to rule out osteomyelitis of the right heel wound Cardiology consultation for further evaluation for bradycardia PT/OT have been consulted as well. The impression and plan of care has been dictated by Evon Hathaway, Nurse Practitioner as directed. Dr. Treasure MD I have performed a history and physical examination and medical decision making of this patient, discussed the same with the dictator, and agree with the dictators assessment and plan as written, documented as a scribe. Based on total visit time, I have performed more than 50% of this visit. Objective - Vital Signs Vital signs: Vital Signs Temp 97.5 F L 09/17/22 12:40 Pulse 43 L 09/17/22 12:40 Resp 17 09/17/22 12:40 BP 126/72 09/17/22 12:40 Pulse Ox 98 09/17/22 12:40 FiO2 Intake & Output 09/16/22 09/17/22 09/17/22 18:59 06:59 18:59 Intake Total 200 590 Balance 200 590 Intake: Intake, IV Titration 200 Amount Ampicillin-Sulbactam 3 gm 200 In Sodium Chloride 0.9% 100 ml @ 200 mls/hr IVPB Q6H [facility] Rx#:[id number] Oral 590 Other: Voiding Method Toilet Toilet # Voids 5 5 2 - Labs CBC & Chem 7: 09/14/22 15:57 09/16/22 05:30 Labs: Microbiology - Last 24 Hours (Table) 09/14/22 18:45 Blood Culture Gram Stain - Final Blood Blood Culture - Final Micrococcus species 09/14/22 19:00 Blood Culture Gram Stain - Final Blood Blood Culture - Final Coagulase Negative Staph 09/16/22 04:00 Gram Stain - Preliminary Foot - Right Wound Culture - Preliminary 09/15/22 15:29 Blood Culture - Preliminary Blood No Growth after 24 hours Assessment and Plan Time with Patient: Less than 30
[2022-09-17] MEDS: RIVAROXABAN 20 MG TAB PO SCH (16:39)
[2022-09-17] MEDS: traMADol 50 MG TAB PO PRN (22:30)
--- NOTE | 2022-09-17 22:36 | P.PN ---
Subjective Progress Note Date: 09/17/22 Principal diagnosis: Right heel wound and right leg cellulitis Patient is a 67-year-old female with a past medical history significant for diabetes mellitus hypertension hyperlipidemia peripheral neuropathy this patient apparently did have a chronic nonhealing wound to the right heel area and the plantar aspect of the left big toe, presented to the hospital with increasing swelling redness right leg failing outpatient Bactrim DS therapy. On today's evaluation that is 09/17/2022, the patient remains to be afebrile, the patient denies pain to the right lower extremity because of her underlying neuropathy, right lower extremity swelling redness slightly decreased, no chest pain shortness of cough no abdominal pain and no diarrhea Objective - Vital Signs Vital signs: Vital Signs Temp 97.5 F L 09/17/22 12:40 Pulse 43 L 09/17/22 12:40 Resp 17 09/17/22 12:40 BP 126/72 09/17/22 12:40 Pulse Ox 98 09/17/22 12:40 FiO2 Intake & Output 09/16/22 09/17/22 09/17/22 18:59 06:59 18:59 Intake Total 200 590 Balance 200 590 Intake: Intake, IV Titration 200 Amount Ampicillin-Sulbactam 3 gm 200 In Sodium Chloride 0.9% 100 ml @ 200 mls/hr IVPB Q6H [facility] Rx#:[id number] Oral 590 Other: Voiding Method Toilet Toilet # Voids 5 5 2 - Exam GENERAL DESCRIPTION: An elderly female lying in bed in no distress RESPIRATORY SYSTEM: Unlabored breathing , decreased breath sounds at bases HEART: S1 S2 regular rate and rhythm , ABDOMEN: Soft , no tenderness EXTREMITIES: Right heel wound is currently dressed minimal drainage right leg redness has slightly decreased - Labs CBC & Chem 7: 09/14/22 15:57 09/16/22 05:30 Labs: Microbiology - Last 24 Hours (Table) 09/14/22 18:45 Blood Culture Gram Stain - Final Blood Blood Culture - Final Micrococcus species 09/14/22 19:00 Blood Culture Gram Stain - Final Blood Blood Culture - Final Coagulase Negative Staph 09/16/22 04:00 Gram Stain - Preliminary Foot - Right Wound Culture - Preliminary 09/15/22 15:29 Blood Culture - Preliminary Blood No Growth after 24 hours Assessment and Plan (1) Cellulitis of right lower limb Current Visit: No Status: Acute Code(s): L03.115 - CELLULITIS OF RIGHT LOWER LIMB SNOMED Code(s): 435371670 (2) Diabetic ulcer of left foot Current Visit: No Status: Acute Code(s): E11.621 - TYPE 2 DIABETES MELLITUS WITH FOOT ULCER; L97.529 - NON-PRESSURE CHRONIC ULCER OTH PRT LEFT FOOT W UNSP SEVERITY SNOMED Code(s): 282476459 (3) Diabetic ulcer of right foot Current Visit: No Status: Acute Code(s): E11.621 - TYPE 2 DIABETES MELLITUS WITH FOOT ULCER; L97.519 - NON-PRS CHRONIC ULCER OTH PRT RIGHT FOOT W UNSP SEVERITY SNOMED Code(s): 680365540 Plan: 1patient with right diabetic foot infection concerning for cellulitis failing outpatient oral Bactrim DS therapy in this patient x-ray was negative for any bony changes however the patient did have diffuse swelling redness , patient did have a CT of the right foot that was negative for any abscess however mentioning wound tracking down to the calcaneus but no bony destruction however the patient did have elevated sed rate of 102 and high clinical suspicious for osteomyelitis. Bone scan is currently pending 2patient with a positive blood culture with gram-positive cocci has been finalized and staph epi more likely skin contamination 3 local wound care to the right heel and left big toe wound with dry Aquacel silver dressing changed every 48 hour 4patient to continue with Unasyn 3 g every 6 hours to continue while waiting for cultures to finalize and monitor clinical course closely Time with Patient: Less than 30
[2022-09-18] MEDS: AMPICILLIN-SULBACTAM 3 GM in SODIUM CHLORIDE 0.9% 100 ML IVPB SCH ×4 (04:59→22:51)
[2022-09-18] MEDS: CHOLECALCIFEROL 125 MCG (5000 IU) TABLET PO SCH (08:41)
[2022-09-18] MEDS: cycloSPORINE 0.05% OPHTH 0.4 ML DROPERETTE BOTH EYES SCH ×2 (08:41→21:34)
[2022-09-18] MEDS: ATORVASTATIN 10 MG TAB PO SCH (08:41)
[2022-09-18] MEDS: MECLIZINE 25 MG TAB PO SCH ×2 (08:42→21:33)
[2022-09-18] MEDS: LEVOTHYROXINE 50 MCG TAB PO SCH (08:42)
[2022-09-18] MEDS: GABAPENTIN 300 MG CAP PO SCH ×3 (08:42→21:33)
[2022-09-18] MEDS: PANTOPRAZOLE 40 MG TABLET PO SCH (08:42)
[2022-09-18] MEDS: DORZOLAMIDE-TIMOLOL 2.23%/0.68 10ML BTL BOTH EYES SCH ×2 (08:42→21:34)
--- NOTE | 2022-09-18 09:44 | P.CRDCN ---
History of Present Illness History of present illness: HISTORY OF PRESENT ILLNESS: This is a 67-year-old female with a past medical history significant for paroxysmal atrial fibrillation, hypertension, diabetes, obstructive sleep apnea, and morbid obesity. Patient follows in the office with Dr. Clarke. We have been asked to see the patient in consultation for bradycardia. Patient examined at the bedside. Patient is admitted to the hospital secondary to bilateral chronic nonhealing wounds of the right heel and left great toe. EKG performed reveals junctional rhythm. The patient is not on any AV rere blocking agents. The patient states she has been having frequent falls recently. She states most of the time she does not remember falling and she finds herself on the floor; which is consistent with syncopal episodes. TSH was found to be within normal limits. * EKG reveals junctional rhythm * Laboratory data: WBC 8.9. Hemoglobin 11.8. Platelet count 366. Sodium 139. Potassium 4.5. BUN 19. Creatinine 1.02. Lactic acid 1.2. TSH 1.190. * Current home cardiac medications include Lipitor 10 mg daily, Lasix 40 mg daily, and Xarelto 20mg with dinner * Most recent echocardiogram obtained in March 2020 revealed ejection fraction 50-55%, mild MR, trace TR * Cardiac catheterization history: 2018 revealing no significant obstructive coronary artery disease. REVIEW OF SYSTEMS: At the time of my exam: CONSTITUTIONAL: Denies fever or chills. HEENT: Denies blurred vision, vision changes, or eye pain. Denies hemoptysis CARDIOVASCULAR: Denies chest pain. Denies orthopnea. Denies PND. Denies palpitations RESPIRATORY: Denies shortness of breath. GASTROINTESTINAL: Denies abdominal pain. Denies nausea or vomiting. HEMATOLOGIC: Denies bleeding disorders. GENITOURINARY: Denies any blood in urine. SKIN: Denies pruitis. Denies rash. PHYSICAL EXAM: VITAL SIGNS: Reviewed. GENERAL: Well-developed in no acute distress. HEENT: Head is normocephalic. Pupils are equal, round. Sclerae anicteric. Mucous membranes of the mouth are moist. Neck supple. No JVD or thyromegaly LUNGS: Respirations even and unlabored. Lungs essentially clear to auscultation bilaterally. HEART: Regular rate and rhythm. S1 and S2 heard. ABDOMEN: Soft. Nondistended. Nontender. EXTREMITIES: Normal range of motion. No clubbing or cyanosis. Peripheral pulses intact. No lower extremity edema NEUROLOGIC: Awake and alert. Oriented x 3. ASSESSMENT: Bilateral chronic nonhealing wounds of right heel and left great toe Junctional rhythm Syncopal episodes at home History of sick sinus syndrome Paroxysmal atrial fibrillation Hypertension Diabetes Obstructive sleep apnea Morbid obesity PLAN: Continue telemetry monitoring Patient with continued junctional rhythm and syncopal episodes at home. Patient will likely require permanent pacemaker once her infection resolves Begin Hyoscyamine 0.375mg BID Further recommendations pending patient course Nurse practitioner note has been reviewed by physician. Signing provider agrees with the documented findings, assessment, and plan of care. Past Medical History Past Medical History: Atrial Fibrillation, Diabetes Mellitus, Eye Disorder, GERD/Reflux, Hearing Disorder / Deafness, Hyperlipidemia, Hypertension, Neurolog ic Disorder, Osteoarthritis (OA), Sleep Apnea/CPAP/BIPAP, Thyroid Disorder, Vascular Disorder Additional Past Medical History / Comment(s): "Borderline diabetic", neuropathy bilateral feet/legs, bilateral feet diabetic ulcers/diabetic stasis, occasional bilateral lower leg edema, past bilateral lower leg cellulitis, varicosities, paroxysmal afib, vertigo, bilateral tinnitis, umbilical hernia, MICHELLE but unable to tolerate device, chronic back pain/scoliosis, bilateral eye glaucoma/dry eyes, R eye muscle weakness, benign colon polyps, UTIs. History of Any Multi-Drug Resistant Organisms: ESBL Date of last positivie culture/infection: 03/28/22 ESBL MDRO Source:: Urine Past Surgical History: Heart Catheterization, Orthopedic Surgery, Tonsillectomy Additional Past Surgical History / Comment(s): Right ankle fracture with ORIF and some hardware has since been removed, right foot tarsal release, cyst removed from back, R heel debridements, L great toe debridements, colonoscopy with polypectomies, bilateral cataract removal/ lens implants. Past Anesthesia/Blood Transfusion Reactions: No Reported Reaction Past Psychological History: No Psychological Hx Reported Additional Psychological History / Comment(s): Pt resides at [facility] alone. She recently started visits with [facility]. She goes to [facility] wound care. She uses a walker to ambulate. She does not drive, her family takes her to her appts. Smoking Status: Never smoker Past Alcohol Use History: None Reported Past Drug Use History: None Reported - Past Family History Mother Family Medical History: Cancer, Renal Disease Additional Family Medical History / Comment(s): colon Father Family Medical History: COPD Additional Family Medical History / Comment(s): father of ephysema at age 74 yrs. Medications and Allergies Home Medications Medication Instructions Recorded Confirmed Type Atorvastatin [Lipitor] 10 mg PO DAILY 05/14/17 09/14/22 History Meclizine [Antivert] 25 mg PO BID 05/14/17 09/14/22 History Omeprazole Magnesium [PriLOSEC OTC] 20 mg PO DAILY 05/14/17 09/14/22 History Rivaroxaban [Xarelto] 20 mg PO W/SUPPER 08/22/17 09/14/22 History Ibuprofen 200 mg PO DAILY PRN 04/22/18 09/14/22 History Levothyroxine Sodium [Synthroid] 50 mcg PO DAILY 04/22/18 09/14/22 History cycloSPORINE [Restasis] 1 drop BOTH EYES BID 04/22/18 09/14/22 History Dorzolamide-Timol 2.23%/0.68% 1 drop BOTH EYES BID 06/04/19 09/14/22 History [Cosopt] Potassium Gluconate [Potassium 99 mg PO DAILY 02/04/20 09/14/22 History Gluconate ER] Cholecalciferol [Vitamin D3 (125 125 mcg PO DAILY 03/07/22 09/14/22 History Mcg = 5000 Iu)] Furosemide [Lasix] 40 mg PO DAILY 03/07/22 09/14/22 History Gabapentin [Neurontin] 400 mg PO 5XD #15 cap 03/09/22 09/14/22 Rx Netarsudil Mesylat/Latanoprost 1 drop BOTH EYES BID 07/07/22 09/14/22 History [Rocklatan 0.02%-0.005% Eye Drp] traMADol HCL 50 mg PO DAILY PRN 07/07/22 09/14/22 History Docusate [Colace] 100 mg PO DAILY PRN 09/14/22 09/14/22 History Sulfamethoxazole/Trimethoprim 1 tab PO BID 09/14/22 09/14/22 History [Bactrim DS 800-160 mg] Allergies Allergy/AdvReac Type Severity Reaction Status Date / Time No Known Allergies Allergy Verified 09/14/22 17:29 Physical Exam Vitals: Vital Signs Temp Pulse Pulse Resp BP Pulse Ox 09/18/22 07:48 97.9 F 40 L 16 123/78 98 09/18/22 02:00 97.8 F 46 L 16 118/69 97 09/17/22 20:00 18 09/17/22 19:35 98.2 F 58 L 18 108/69 97 09/17/22 12:40 97.5 F L 43 L 17 126/72 98 Intake and Output 09/17/22 09/18/22 09/18/22 22:59 06:59 14:59 Intake Total 350 Balance 350 Intake: Oral 350 Other: Voiding Method Toilet # Voids 1 2 # Bowel Movements 0 Results 09/14/22 15:57 09/16/22 05:30 Current Medications Generic Name Dose Route Start Last Admin Trade Name Freq PRN Reason Stop Dose Admin Acetaminophen 650 mg 09/14/22 19:17 09/18/22 05:05 Acetaminophen Tab 325 Mg Tab PO 650 mg Q6HR PRN Administration Mild Pain or Fever > 100.5 Hydrocodone Bitart/Acetaminophen 1 each 09/14/22 19:17 09/16/22 23:26 Hydrocodone/Apap 5-325mg 1 Each Tab PO 1 each Q4HR PRN Administration Moderate Pain (Scale 4 to 6) Atorvastatin Calcium 10 mg 09/15/22 09:00 09/17/22 08:31 Atorvastatin 10 Mg Tab PO 10 mg DAILY JENNIFER Administration Cholecalciferol 125 mcg 09/15/22 09:00 09/17/22 08:31 Cholecalciferol 125 Mcg (5000 Iu) Tablet PO 125 mcg DAILY JENNIFER Administration Cyclosporine 1 drops 09/14/22 21:00 09/17/22 22:20 Cyclosporine 0.05% Ophth 0.4 Ml Droperette BOTH EYES 1 drops BID JENNIFER Administration Docusate Sodium 100 mg 09/15/22 09:58 Docusate 100 Mg Cap PO DAILY PRN Constipation Dorzolamide/Timolol 1 drops 09/14/22 21:00 09/17/22 22:21 Dorzolamide-Timolol 2.23%/0.68 10ml Btl BOTH EYES 1 drops BID JENNIFER Administration Furosemide 40 mg 09/15/22 09:00 09/17/22 08:32 Furosemide 40 Mg Tab PO 40 mg DAILY JENNIFER Administration Gabapentin 300 mg 09/15/22 16:00 09/17/22 22:20 Gabapentin 300 Mg Cap PO 300 mg TID JENNIFER Administration Ampicillin Sodium/Sulbactam 100 mls @ 200 mls/hr 09/15/22 23:00 09/18/22 04:59 Sodium 3 gm/ Sodium Chloride IVPB 200 mls/hr Q6H JENNIFER Administration Protocol Levothyroxine Sodium 50 mcg 09/15/22 09:00 09/17/22 08:32 Levothyroxine 50 Mcg Tab PO 50 mcg DAILY JENNIFER Administration Meclizine HCl 25 mg 09/14/22 21:00 09/17/22 22:20 Meclizine 25 Mg Tab PO 25 mg BID [facility] Administration Naloxone HCl 0.2 mg 09/14/22 19:17 Naloxone 0.4 Mg/Ml 1 Ml Vial IV Q2M PRN Opioid Reversal Non-Formulary Medication 1 drop 09/14/22 21:00 09/17/22 22:27 Netarsudil Mesylat/Latanoprost [Rocklatan 0.02%-0.005% Eye Drp] BOTH EYES Not Given BID [facility] Non-Formulary Medication 99 mg 09/15/22 09:00 09/17/22 10:26 Potassium Gluconate [Potassium Gluconate Er] PO Not Given DAILY [facility] Ondansetron HCl 4 mg 09/14/22 19:17 Ondansetron 4 Mg/2 Ml Vial IVP Q8HR PRN Nausea And Vomiting Pantoprazole Sodium 40 mg 09/15/22 07:30 09/17/22 08:31 Pantoprazole 40 Mg Tablet PO 40 mg [id number]-[id number] JENNIFER Administration Rivaroxaban 20 mg 09/14/22 19:30 09/17/22 16:39 Rivaroxaban 20 Mg Tab PO 20 mg W/SUPPER JENNIFER Administration Protocol Tramadol HCl 50 mg 09/15/22 09:58 09/17/22 22:30 Tramadol 50 Mg Tab PO 50 mg DAILY PRN Administration Pain Intake and Output 09/17/22 09/18/22 09/18/22 22:59 06:59 14:59 Intake Total 350 Balance 350 Intake: Oral 350 Other: Voiding Method Toilet # Voids 1 2 # Bowel Movements 0 09/14/22 15:57 09/16/22 05:30
[2022-09-18] MEDS: FUROSEMIDE 40 MG TAB PO SCH (10:41)
[2022-09-18] MEDS: HYOSCYAMINE SULFATE 0.375 MG TAB.ER.12H PO SCH ×2 (10:41→21:33)
[2022-09-18] MEDS: NON FORMULARY DRUG (Netarsudil Mesylat/Latanoprost [Rocklatan 0.02%-0.005% Eye Drp] 2.5 ML BOTH EYES SCH ×2 (10:42→21:33)
[2022-09-18] MEDS: NON FORMULARY DRUG (Potassium Gluconate [Potassium Gluconate Er] 99 MG Tablet.Er) PO SCH (10:42)
--- NOTE | 2022-09-18 12:49 | P.PN ---
Subjective Progress Note Date: 09/18/22 This is a 67 year old female who follows with Dr. Garcia, medical history of atrial fibrillation anticoagulated with xarelto, diabetes, GERD, hypertension, hyperlipidemia, sleep apnea, thyroid disorder, peripheral neuropathy, sleep apena. She lives in an apartment, does not drive. He has family that helps take her to appointments. Most of her meals consist of frozen dinners. Presents to the hospital from the wound care clinic after failing outpatient therapy for nonhealing wounds one on the right heel and on the bottom of the left great toe. Wounds have been present over the last year. Wound cultures were taken of the right heel wound on 09/07/2021 showing staphylococcus aureus and strep agalac tiae. She was being treated outpatient with oral bactrim without much improvement in her symptoms. She does present now with significant redness to her right lower rodriguez and ankle and drainage from both wounds. Right foot xray showing no evidence for osteomyelitis. No white count on admission. BUN 22, creatinine 1.29. Blood glucose is 87. Most recent A1C from 09/07/22 is 6.5. Blood culture preliminary showing gram positive cocci in clusters. Patient has been started on IV vancomycin and infectious disease has been consulted for further evaluation. 09/16/2022 No acute events overnight. Patient continues on IV antibiotics in the form of IV unasyn. Repeat wound cultures are pending and blood cultures showing Coagulase negative staphylococcus which is likely a contamination. Repeat blood culture negative at 24 hours. Patient had right foot CT done showing shallow wound along the heel there is inflammatory edema from there to contact the underlying calcaneal bone. No evidence to suggest osteomyelitis but follow up recommended. Patient is scheduled to undergo a bone scan of the right heel wound. Local wound care recommended with aquacel silver to the right heel wound and also the left great toe to change every 48 hours. Potassium has improved to 4.5. BUN 19, creatinine 1.09. 09/17/2022 Patient is evaluated today on medical floor. No acute events overnight. She continues on IV antibiotics and local wound care to right heel and left great toe. She will undergo bone scan tomorrow. Wound cultures are currently pending and blood culture repeat showing coagulase negative staph which is likely a contaminent species. Infectious disease is following closely. 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 She has been bradycardic this hospital stay with EKG showing atrial fibrillation with possible competing junction rhythm. TSH is normal at 1.190. 09/18/2022 Patient continues to be monitored closely on medical floor. Remains in junction rhythm with heart rate in the 40s and has been evaluated by cardiology. Recommending possible pacemaker once infection clears. Wound cultures remain pending at this time and she continues on IV unasyn per infectious disease. Her right lower extremity cellulitis seems improving, less red she does have some pitting edema to the ankle. Remains on xarelto. Review of Systems Constitutional: Denied any fatigue denied any fever. Cardio vascular: denied any chest pain, palpitations Gastrointestinal: denied any nausea, vomiting, diarrhea Pulmonary: Denied any shortness of breath cough Neurologic denied any new focal deficits All inpatient medications were reviewed and appropriate changes in these medications as dictated in the interval history and assessment and plan. PHYSICAL EXAMINATION: GENERAL: The patient is alert and oriented x3, not in any acute distress. Well developed, well nourished. Obese. HEENT: Pupils are round and equally reacting to light. EOMI. No scleral icterus. No conjunctival pallor. Normocephalic, atraumatic. No pharyngeal erythema. No thyromegaly. CARDIOVASCULAR: S1 and S2 present. No murmurs, rubs, or gallops. Bradycardic. PULMONARY: Chest is clear to auscultation, no wheezing or crackles. ABDOMEN: Soft, nontender, nondistended, normoactive bowel sounds. No palpable organomegaly. MUSCULOSKELETAL: No joint swelling or deformity. EXTREMITIES: No cyanosis, clubbing, or pedal edema. NEUROLOGICAL: Gross neurological examination did not reveal any focal deficits. SKIN: There is ulceration to the right heel with serosanguineous drainage, improving redness to the right rodriguez. There is ulcer to the bottom of the left great toe. Assessment and Plan Assessment Bilateral chronic nonhealing wounds right heal/left great toe with right lower extremity cellulitis positive wound cultures done outpatient and failed outpatient antibiotic therapy Gram positive bacteremia likely contamination ID following Mild acute kidney injury patient is on multiple medications that are nephrotoxic, improved after stopping the oral bactrim. Hyperkalemia from YOANNA resolved Paroxysmal atrial fibrillation anticoagulated with xarelto History of sick sinus syndrome with known bradycardia EKG showing junction rhythm Frequent falls/syncope at home Diabetes mellitus with neuropathy, diet controlled Hypertension History hyperlipidemia Obstructive sleep apnea does not use device Glaucoma, bilateral Coronary artery disease Gastroesophageal reflux disease GI prophylaxis DVT prophylaxis Full Code Plan Wound cultures pending, continue with local wound care as recommended. Infectious disease following and patient continues on IV antibiotics Bone scan has been ordered to rule out osteomyelitis of the right heel wound Cardiology consultation for further evaluation for bradycardia recommending possible pacemaker PT/OT have been consulted as well. The impression and plan of care has been dictated by Evon Hathaway, Nurse Practitioner as directed. Dr. Treasure MD I have performed a history and physical examination and medical decision making of this patient, discussed the same with the dictator, and agree with the dictators assessment and plan as written, documented as a scribe. Based on total visit time, I have performed more than 50% of this visit. Objective - Vital Signs Vital signs: Vital Signs Temp 97.7 F 09/18/22 11:50 Pulse 41 L 09/18/22 11:50 Resp 16 09/18/22 11:50 BP 106/61 09/18/22 11:50 Pulse Ox 98 09/18/22 11:50 FiO2 Intake & Output 09/17/22 09/18/22 09/18/22 18:59 06:59 18:59 Intake Total 350 Balance 350 Intake: Oral 350 Other: Voiding Method Toilet Toilet Toilet # Voids 2 2 # Bowel Movements 0 - Labs CBC & Chem 7: 09/14/22 15:57 09/16/22 05:30 Labs: Microbiology - Last 24 Hours (Table) 09/15/22 15:29 Blood Culture - Preliminary Blood No Growth after 48 hours 09/14/22 18:45 Blood Culture Gram Stain - Final Blood Blood Culture - Final Micrococcus species 09/14/22 19:00 Blood Culture Gram Stain - Final Blood Blood Culture - Final Coagulase Negative Staph 09/16/22 04:00 Gram Stain - Preliminary Foot - Right Wound Culture - Preliminary Assessment and Plan Time with Patient: Less than 30
--- NOTE | 2022-09-18 13:58 | NM ---
EXAMINATION TYPE: NM bone 3 phase DATE OF EXAM: 09/18/2022 COMPARISON: CT foot 09/15/2022 HISTORY: Right heel wound Triple phase bone scintigraphy was performed following the injection of 25.9 mCi Tc 99m MDP. Immedia te images and 5.75 hours post injection images acquired. FINDINGS: Blood flow: There is increased radiotracer accumulation within the distal right foot compared to the left. This is fairly diffuse. There is increased radiotracer accumulation within the subcutaneous tissues of the right foot compare d to the left on blood pool images. No focal uptake within the region of the calcaneus is evident. Static images: There is focal uptake within the region of the left second digit. This area correspond s to uptake on the blood flow and blood pool images. Consider osteomyelitis or recent injury at this location. This is out of the field of view on the right foot CT images. Diffuse uptake is within the distal right ankle, this may be more degenerative in nature without sign ificant uptake on the blood flow and blood pool images in this region. This corresponds to the change s identified on the CT examination. There are some additional increased uptake within the bilateral feet more so on the right than the le ft. Suspicious changes to suggest osteomyelitis the calcaneus is not evident. IMPRESSION: 1. Increased radiotracer accumulation in the region of the distal second digit on 3 phase bone scan. Consider osteomyelitis or recent injury at this location. 2. Abnormal uptake within the region of the calcaneus to suggest osteomyelitis is not evident. 3. Cellulitis to the right foot could be considered.
--- NOTE | 2022-09-18 16:45 | CDI ---
Documentation Clarification Form Date: 09/18/2022 4:27:58 PM From: Bette Calzada RN CCDS Admit Date: 09/14/2022 7:28:00 PM Patient Name: Lorie Denton Visit Number: [id number] Discharge Date: ATTENTION: The Clinical Documentation Specialists (CDI) and [facility] Coding Staff appreciate your assistance in clarifying documentation. Please respond to the clarification below the line at the bottom and electronically sign. The CDI & [facility] Coding staff will review the response and follow-up if needed. Please note: Queries are made part of the Legal Health Record. If you have any questions, please contact the author of this message via ITS. Dr. Adal Amanad Cellulitis is documented 09/18, Medicine Note. Additional clarification regarding the type of cellulitis is requested. History/risk factors: 67-year-old female presents to the ED from wound care for non-healing wounds on the right heel and bottom of left great toe. Medical history: Right heel wound culture Staphylococcus aureus and strep agalactiae. DM diet controlled, DM neuropathy, HTN and SSS. 09/15, H&P. Clinical Indicators: 09/17, ID: Patient with right diabetic foot infection concerning for cellulitis failing outpatient oral Bactrim DS therapy. 09/14, VS: B/P 123/81; HR 69; Temp 96.7 F Oral; RR 18; SpO2 99% room air 09/16, Right Foot culture: Presumptive Staph aureus 09/15, CT Right foot: Suggestion of a shallow wound along the plantar aspect of the heel. Inflammatory edema extends from here to contact the underlying calcaneal bone. Treatment: 09/18 Ampicillin IVPB Q6H; 09/14 Vancomycin IVPB x 1; 09/15 Vancomycin IVPB x 1; Wound care Q48H; Consistent Carbohydrate diet. Please clarify the type of cellulitis, if known: [ x ] Cellulitis due to DM2 [ ] Cellulitis not due to DM2 [ ] Other, please specify: [ ] Unable to determine (Template Last Revised: November 2020) MTDD
[2022-09-18] MEDS: RIVAROXABAN 20 MG TAB PO SCH (18:04)
--- NOTE | 2022-09-18 20:34 | P.PN ---
Subjective Progress Note Date: 09/18/22 Principal diagnosis: Right heel wound and right leg cellulitis Patient is a 67-year-old female with a past medical history significant for diabetes mellitus hypertension hyperlipidemia peripheral neuropathy this patient apparently did have a chronic nonhealing wound to the right heel area and the plantar aspect of the left big toe, presented to the hospital with increasing swelling redness right leg failing outpatient Bactrim DS therapy. On today's evaluation that is 09/18, the patient remains to be afebrile, the patient denies pain to the right lower extremity because of her underlying neuropathy, the patient right lower extremity swelling redness decrease in intensity denies any drainage, no chest pain shortness of cough no abdominal pain and no diarrhea Objective - Vital Signs Vital signs: Vital Signs Temp 97.7 F 09/18/22 11:50 Pulse 41 L 09/18/22 11:50 Resp 16 09/18/22 11:50 BP 106/61 09/18/22 11:50 Pulse Ox 98 09/18/22 11:50 FiO2 Intake & Output 09/17/22 09/18/22 09/18/22 18:59 06:59 18:59 Intake Total 350 Balance 350 Intake: Oral 350 Other: Voiding Method Toilet Toilet Toilet # Voids 2 2 # Bowel Movements 0 - Exam GENERAL DESCRIPTION: An elderly female lying in bed in no distress RESPIRATORY SYSTEM: Unlabored breathing , decreased breath sounds at bases HEART: S1 S2 regular rate and rhythm , ABDOMEN: Soft , no tenderness EXTREMITIES: Right heel wound is currently dressed minimal drainage right leg redness has slightly decreased - Labs CBC & Chem 7: 09/14/22 15:57 09/16/22 05:30 Labs: Microbiology - Last 24 Hours (Table) 09/15/22 15:29 Blood Culture - Preliminary Blood No Growth after 48 hours 09/14/22 18:45 Blood Culture Gram Stain - Final Blood Blood Culture - Final Micrococcus species 09/14/22 19:00 Blood Culture Gram Stain - Final Blood Blood Culture - Final Coagulase Negative Staph Assessment and Plan (1) Cellulitis of right lower limb Current Visit: No Status: Acute Code(s): L03.115 - CELLULITIS OF RIGHT LOWER LIMB SNOMED Code(s): 660445856 (2) Diabetic ulcer of left foot Current Visit: No Status: Acute Code(s): E11.621 - TYPE 2 DIABETES MELLITUS WITH FOOT ULCER; L97.529 - NON-PRESSURE CHRONIC ULCER OTH PRT LEFT FOOT W UNSP SEVERITY SNOMED Code(s): 155479230 (3) Diabetic ulcer of right foot Current Visit: No Status: Acute Code(s): E11.621 - TYPE 2 DIABETES MELLITUS WITH FOOT ULCER; L97.519 - NON-PRS CHRONIC ULCER OTH PRT RIGHT FOOT W UNSP SEVERITY SNOMED Code(s): 640614888 Plan: 1patient with right diabetic foot infection concerning for cellulitis failing outpatient oral Bactrim DS therapy in this patient x-ray was negative for any bony changes however the patient did have diffuse swelling redness , patient did have a CT of the right foot that was negative for any abscess however mentioning wound tracking down to the calcaneus but no bony destruction however the patient did have elevated sed rate of 102 and high clinical suspicious for osteomyelitis. Bone scan is currently pending 2patient with a positive blood culture with gram-positive cocci has been finalized and staph epi more likely skin contamination 3 local wound care to the right heel and left big toe wound with dry Aquacel silver dressing changed every 48 hour 4patient seemed to have some clinical improvement and will continue with Unasyn 3 g every 6 hours, while waiting for cultures to finalize and bone scan to be completed
[2022-09-19] MEDS: HYDROcodone/APAP 5-325MG 1 EACH TAB PO PRN (02:48)
[2022-09-19] MEDS: AMPICILLIN-SULBACTAM 3 GM in SODIUM CHLORIDE 0.9% 100 ML IVPB SCH ×4 (05:26→23:08)
--- NOTE | 2022-09-19 09:45 | P.PN ---
Subjective Progress Note Date: 09/19/22 HISTORY OF PRESENT ILLNESS: This is a 67-year-old female with a past medical history significant for paroxysmal atrial fibrillation, hypertension, diabetes, obstructive sleep apnea, and morbid obesity. Patient follows in the office with Dr. Clarke. We have been asked to see the patient in consultation for bradycardia. Patient examined at the bedside. Patient is admitted to the hospital secondary to bilateral chronic nonhealing wounds of the right heel and left great toe. EKG performed reveals junctional rhythm. The patient is not on any AV rere blocking agents. The patient states she has been having frequent falls recently. She states most of the time she does not remember falling and she finds herself on the floor; which is consistent with syncopal episodes. TSH was found to be within normal limits. * EKG reveals junctional rhythm * Laboratory data: WBC 8.9. Hemoglobin 11.8. Platelet count 366. Sodium 139. Potassium 4.5. BUN 19. Creatinine 1.02. Lactic acid 1.2. TSH 1.190. * Current home cardiac medications include Lipitor 10 mg daily, Lasix 40 mg daily, and Xarelto 20mg with dinner * Most recent echocardiogram obtained in March 2020 revealed ejection fraction 50-55%, mild MR, trace TR * Cardiac catheterization history: 2017 revealing no significant obstructive coronary artery disease. 09/19/2022 Patient examined this morning at the bedside. Patient denies chest pain or pressure. She denies shortness of breath. Patient appears to remain in a junctional rhythm on telemetry. Patient is asymptomatic. Blood pressure is stable. PHYSICAL EXAM: VITAL SIGNS: Reviewed. GENERAL: Well-developed in no acute distress. HEENT: Head is normocephalic. Pupils are equal, round. Sclerae anicteric. Mucous membranes of the mouth are moist. Neck supple. No JVD or thyromegaly LUNGS: Respirations even and unlabored. Lungs essentially clear to auscultation bilaterally. HEART: Regular rate and rhythm. S1 and S2 heard. ABDOMEN: Soft. Nondistended. Nontender. EXTREMITIES: Normal range of motion. No clubbing or cyanosis. Peripheral pulses intact. No lower extremity edema NEUROLOGIC: Awake and alert. Oriented x 3. ASSESSMENT: Bilateral chronic nonhealing wounds of right heel and left great toe Junctional rhythm Syncopal episodes at home History of sick sinus syndrome Paroxysmal atrial fibrillation Hypertension Diabetes Obstructive sleep apnea Morbid obesity PLAN: Continue telemetry monitoring Patient with continued junctional rhythm and syncopal episodes at home. Patient will likely require permanent pacemaker once her infection resolves Continue Hyoscyamine 0.375mg BID Further recommendations pending patient course Nurse practitioner note has been reviewed by physician. Signing provider agrees with the documented findings, assessment, and plan of care. Objective - Vital Signs Vital signs: Vital Signs Temp 97.8 F 09/19/22 07:55 Pulse 50 L 09/19/22 07:55 Resp 16 09/19/22 07:55 BP 122/82 09/19/22 07:55 Pulse Ox 98 09/19/22 07:55 FiO2 Intake & Output 09/18/22 09/19/22 09/19/22 18:59 06:59 18:59 Other: Voiding Method Toilet # Voids 2 1 - Labs CBC & Chem 7: 09/14/22 15:57 09/16/22 05:30 Labs: Microbiology - Last 24 Hours (Table) 09/15/22 15:29 Blood Culture - Preliminary Blood No Growth after 72 hours 09/16/22 04:00 Anaerobic Culture - Preliminary Heel - Right 09/16/22 04:00 Gram Stain - Preliminary Foot - Right Wound Culture - Preliminary Presumptive Staph aureus
[2022-09-19] MEDS: MECLIZINE 25 MG TAB PO SCH ×2 (10:01→21:02)
[2022-09-19] MEDS: LEVOTHYROXINE 50 MCG TAB PO SCH (10:01)
[2022-09-19] MEDS: CHOLECALCIFEROL 125 MCG (5000 IU) TABLET PO SCH (10:01)
[2022-09-19] MEDS: GABAPENTIN 300 MG CAP PO SCH ×3 (10:01→21:02)
[2022-09-19] MEDS: ATORVASTATIN 10 MG TAB PO SCH (10:01)
[2022-09-19] MEDS: FUROSEMIDE 40 MG TAB PO SCH (10:01)
[2022-09-19] MEDS: PANTOPRAZOLE 40 MG TABLET PO SCH (10:01)
[2022-09-19] MEDS: NON FORMULARY DRUG (Netarsudil Mesylat/Latanoprost [Rocklatan 0.02%-0.005% Eye Drp] 2.5 ML BOTH EYES SCH ×2 (10:02→21:02)
[2022-09-19] MEDS: HYOSCYAMINE SULFATE 0.375 MG TAB.ER.12H PO SCH ×2 (10:02→21:02)
[2022-09-19] MEDS: NON FORMULARY DRUG (Potassium Gluconate [Potassium Gluconate Er] 99 MG Tablet.Er) PO SCH (10:02)
[2022-09-19] MEDS: cycloSPORINE 0.05% OPHTH 0.4 ML DROPERETTE BOTH EYES SCH ×2 (10:03→21:02)
[2022-09-19] MEDS: DORZOLAMIDE-TIMOLOL 2.23%/0.68 10ML BTL BOTH EYES SCH ×2 (10:03→21:03)
--- NOTE | 2022-09-19 17:36 | P.PN ---
Subjective Progress Note Date: 09/19/22 This is a 67 year old female who follows with Dr. Garcia, medical history of atrial fibrillation anticoagulated with xarelto, diabetes, GERD, hypertension, hyperlipidemia, sleep apnea, thyroid disorder, peripheral neuropathy, sleep apena. She lives in an apartment, does not drive. He has family that helps take her to appointments. Most of her meals consist of frozen dinners. Presents to the hospital from the wound care clinic after failing outpatient therapy for nonhealing wounds one on the right heel and on the bottom of the left great toe. Wounds have been present over the last year. Wound cultures were taken of the right heel wound on 09/07/2021 showing staphylococcus aureus and strep agalac tiae. She was being treated outpatient with oral bactrim without much improvement in her symptoms. She does present now with significant redness to her right lower rodriguez and ankle and drainage from both wounds. Right foot xray showing no evidence for osteomyelitis. No white count on admission. BUN 22, creatinine 1.29. Blood glucose is 87. Most recent A1C from 09/07/22 is 6.5. Blood culture preliminary showing gram positive cocci in clusters. Patient has been started on IV vancomycin and infectious disease has been consulted for further evaluation. 09/16/2022 No acute events overnight. Patient continues on IV antibiotics in the form of IV unasyn. Repeat wound cultures are pending and blood cultures showing Coagulase negative staphylococcus which is likely a contamination. Repeat blood culture negative at 24 hours. Patient had right foot CT done showing shallow wound along the heel there is inflammatory edema from there to contact the underlying calcaneal bone. No evidence to suggest osteomyelitis but follow up recommended. Patient is scheduled to undergo a bone scan of the right heel wound. Local wound care recommended with aquacel silver to the right heel wound and also the left great toe to change every 48 hours. Potassium has improved to 4.5. BUN 19, creatinine 1.09. 09/17/2022 Patient is evaluated today on medical floor. No acute events overnight. She continues on IV antibiotics and local wound care to right heel and left great toe. She will undergo bone scan tomorrow. Wound cultures are currently pending and blood culture repeat showing coagulase negative staph which is likely a contaminent species. Infectious disease is following closely. Patient does have known bradycardia she states that at one time her leguillon debeader had discussed a pacemaker and she is being followed closely outpatient. She has been bradycardic this hospital stay with EKG showing atrial fibrillation with possible competing junction rhythm. TSH is normal at 1.190. 09/18/2022 Patient continues to be monitored closely on medical floor. Remains in junction rhythm with heart rate in the 40s and has been evaluated by cardiology. Recommending possible pacemaker once infection clears. Wound cultures remain pending at this time and she continues on IV unasyn per infectious disease. Her right lower extremity cellulitis seems improving, less red she does have some pitting edema to the ankle. Remains on xarelto. 09/19/2022 Patient is evaluated on medical floor no acute events overnight. Has been started on Hyoscyamine. Continues in a junctional heart rhythym and is being followed closely by cardiology at this time. Wound cultures have finalized showing staphylococcus aureus and likely will DC on oral antibiotics and continued wound care. She continues on IV unasyn. Review of Systems Constitutional: Denied any fatigue denied any fever. Cardio vascular: denied any chest pain, palpitations Gastrointestinal: denied any nausea, vomiting, diarrhea Pulmonary: Denied any shortness of breath cough Neurologic denied any new focal deficits All inpatient medications were reviewed and appropriate changes in these medications as dictated in the interval history and assessment and plan. PHYSICAL EXAMINATION: GENERAL: The patient is alert and oriented x3, not in any acute distress. Well developed, well nourished. Obese. HEENT: Pupils are round and equally reacting to light. EOMI. No scleral icterus. No conjunctival pallor. Normocephalic, atraumatic. No pharyngeal erythema. No thyromegaly. CARDIOVASCULAR: S1 and S2 present. No murmurs, rubs, or gallops. Bradycardic. PULMONARY: Chest is clear to auscultation, no wheezing or crackles. ABDOMEN: Soft, nontender, nondistended, normoactive bowel sounds. No palpable organomegaly. MUSCULOSKELETAL: No joint swelling or deformity. EXTREMITIES: No cyanosis, clubbing, or pedal edema. NEUROLOGICAL: Gross neurological examination did not reveal any focal deficits. SKIN: There is ulceration to the right heel with serosanguineous drainage, improving redness to the right rodriguez. There is ulcer to the bottom of the left great toe. Assessment and Plan Assessment Bilateral chronic nonhealing wounds right heal/left great toe with right lower extremity cellulitis positive wound cultures done outpatient and failed outpatient antibiotic therapy Gram positive bacteremia likely contamination ID following Mild acute kidney injury patient is on multiple medications that are nephrotoxic, improved after stopping the oral bactrim. Hyperkalemia from [facility] resolved Paroxysmal atrial fibrillation anticoagulated with xarelto History of sick sinus syndrome with known bradycardia EKG showing junction rhythm Frequent falls/syncope at home Diabetes mellitus with neuropathy, diet controlled Hypertension History hyperlipidemia Obstructive sleep apnea does not use device Glaucoma, bilateral Coronary artery disease Gastroesophageal reflux disease GI prophylaxis DVT prophylaxis Full Code Plan Wound cultures have finalized, ID following. Continue local wound care Cardiology consultation for further evaluation for bradycardia recommending possible permanent pacemaker once infection clears PT recommending DC home Discharge planning pending further recommendations from cardiology The impression and plan of care has been dictated by Evon Hathaway Nurse Practitioner as directed. Dr. Treasure MD I have performed a history and physical examination and medical decision making of this patient, discussed the same with the dictator, and agree with the dictators assessment and plan as written, documented as a scribe. Based on total visit time, I have performed more than 50% of this visit. Objective - Vital Signs Vital signs: Vital Signs Temp 97.3 F L 09/19/22 12:06 Pulse 98 09/19/22 12:06 Resp 16 09/19/22 12:06 BP 130/84 09/19/22 12:06 Pulse Ox 98 09/19/22 12:06 FiO2 Intake & Output 09/18/22 09/19/22 09/19/22 18:59 06:59 18:59 Other: Voiding Method Toilet # Voids 2 1 2 - Labs CBC & Chem 7: 09/14/22 15:57 09/16/22 05:30 Labs: Microbiology - Last 24 Hours (Table) 09/16/22 04:00 Gram Stain - Final Foot - Right Wound Culture - Final Staphylococcus aureus 09/15/22 15:29 Blood Culture - Preliminary Blood No Growth after 72 hours 09/16/22 04:00 Anaerobic Culture - Preliminary Heel - Right Assessment and Plan Time with Patient: Less than 30
[2022-09-19] MEDS: RIVAROXABAN 20 MG TAB PO SCH (17:55)
[2022-09-19] MEDS: traMADol 50 MG TAB PO PRN (21:06)
--- NOTE | 2022-09-19 21:54 | P.PN ---
Subjective Progress Note Date: 09/19/22 Principal diagnosis: Right heel wound and right leg cellulitis Patient is a 67-year-old female with a past medical history significant for diabetes mellitus hypertension hyperlipidemia peripheral neuropathy this patient apparently did have a chronic nonhealing wound to the right heel area and the plantar aspect of the left big toe, presented to the hospital with increasing swelling redness right leg failing outpatient Bactrim DS therapy. On today's evaluation that is 09/19/2022, the patient denies any fever or chills, the patient denies pain to the right lower extremity because of her underlying neuropathy, the patient right lower extremity swelling redness has decrease in intensity and the patient denies any drainage, no chest pain shortness of cough no abdominal pain and no diarrhea Objective - Vital Signs Vital signs: Vital Signs Temp 97.8 F 09/19/22 07:55 Pulse 50 L 09/19/22 07:55 Resp 16 09/19/22 07:55 BP 122/82 09/19/22 07:55 Pulse Ox 98 09/19/22 07:55 FiO2 Intake & Output 09/18/22 09/19/22 09/19/22 18:59 06:59 18:59 Other: Voiding Method Toilet # Voids 2 1 - Exam GENERAL DESCRIPTION: An elderly female lying in bed in no distress RESPIRATORY SYSTEM: Unlabored breathing , decreased breath sounds at bases HEART: S1 S2 regular rate and rhythm , ABDOMEN: Soft , no tenderness EXTREMITIES: Right heel wound is superficial not probing down to the bone he did have a blood blister next week there was no evidence of any swelling or redness of the right second toe - Labs CBC & Chem 7: 09/14/22 15:57 09/16/22 05:30 Labs: Microbiology - Last 24 Hours (Table) 09/15/22 15:29 Blood Culture - Preliminary Blood No Growth after 72 hours 09/16/22 04:00 Anaerobic Culture - Preliminary Heel - Right 09/16/22 04:00 Gram Stain - Preliminary Foot - Right Wound Culture - Preliminary Presumptive Staph aureus Assessment and Plan (1) Cellulitis of right lower limb Current Visit: No Status: Acute Code(s): L03.115 - CELLULITIS OF RIGHT LOWER LIMB SNOMED Code(s): 522673625 (2) Diabetic ulcer of left foot Current Visit: No Status: Acute Code(s): E11.621 - TYPE 2 DIABETES MELLITUS WITH FOOT ULCER; L97.529 - NON-PRESSURE CHRONIC ULCER OTH PRT LEFT FOOT W UNSP SEVERITY SNOMED Code(s): 424126507 (3) Diabetic ulcer of right foot Current Visit: No Status: Acute Code(s): E11.621 - TYPE 2 DIABETES MELLITUS WITH FOOT ULCER; L97.519 - NON-PRS CHRONIC ULCER OTH PRT RIGHT FOOT W UNSP SEVERITY SNOMED Code(s): 925855874 Plan: 1patient with right diabetic foot infection concerning for cellulitis failing outpatient oral Bactrim DS therapy in this patient x-ray was negative for any bony changes however the patient did have diffuse swelling redness , patient did have a CT of the right foot that was negative for any abscess however mentioning wound tracking down to the calcaneus but no bony destruction however the patient did have elevated sed rate of 102 and high clinical suspicious for osteom yelitis. Bone scan was negative for any uptake at the right calcaneus where the patient did have a wound 2patient with a positive blood culture with gram-positive cocci has been finalized and staph epi more likely skin contamination 3 local wound care to the right heel and left big toe wound with dry Aquacel silver dressing changed every 48 hour 4patient seemed to have some clinical improvement and bone scan was negative for any suspicious for ostomy myelitis at the right heel area did mention some abnormality at the right second toe however clinically there is no swelling no redness, local culture finalized with MSSA and is to finish therapy with oral Keflex prescription sent to the pharmacy
[2022-09-20] MEDS: HYDROcodone/APAP 5-325MG 1 EACH TAB PO PRN (04:02)
[2022-09-20] MEDS: AMPICILLIN-SULBACTAM 3 GM in SODIUM CHLORIDE 0.9% 100 ML IVPB SCH ×2 (04:02→11:15)
[2022-09-20] MEDS: GABAPENTIN 300 MG CAP PO SCH (08:36)
[2022-09-20] MEDS: HYOSCYAMINE SULFATE 0.375 MG TAB.ER.12H PO SCH (08:36)
[2022-09-20] MEDS: LEVOTHYROXINE 50 MCG TAB PO SCH (08:36)
[2022-09-20] MEDS: MECLIZINE 25 MG TAB PO SCH (08:36)
[2022-09-20] MEDS: CHOLECALCIFEROL 125 MCG (5000 IU) TABLET PO SCH (08:36)
[2022-09-20] MEDS: ATORVASTATIN 10 MG TAB PO SCH (08:36)
[2022-09-20] MEDS: PANTOPRAZOLE 40 MG TABLET PO SCH (08:36)
[2022-09-20] MEDS: FUROSEMIDE 40 MG TAB PO SCH (08:36)
[2022-09-20] MEDS: DORZOLAMIDE-TIMOLOL 2.23%/0.68 10ML BTL BOTH EYES SCH (08:37)
[2022-09-20] MEDS: cycloSPORINE 0.05% OPHTH 0.4 ML DROPERETTE BOTH EYES SCH (08:37)
[2022-09-20] MEDS: NON FORMULARY DRUG (Potassium Gluconate [Potassium Gluconate Er] 99 MG Tablet.Er) PO SCH (08:39)
[2022-09-20] MEDS: NON FORMULARY DRUG (Netarsudil Mesylat/Latanoprost [Rocklatan 0.02%-0.005% Eye Drp] 2.5 ML BOTH EYES SCH (08:39)
--- NOTE | 2022-09-20 10:11 | P.PN ---
Subjective Progress Note Date: 09/20/22 HISTORY OF PRESENT ILLNESS: This is a 67-year-old female with a past medical history significant for paroxysmal atrial fibrillation, hypertension, diabetes, obstructive sleep apnea, and morbid obesity. Patient follows in the office with Dr. Clarke. We have been asked to see the patient in consultation for bradycardia. Patient examined at the bedside. Patient is admitted to the hospital secondary to bilateral chronic nonhealing wounds of the right heel and left great toe. EKG performed reveals junctional rhythm. The patient is not on any AV rere blocking agents. The patient states she has been having frequent falls recently. She states most of the time she does not remember falling and she finds herself on the floor; which is consistent with syncopal episodes. TSH was found to be within normal limits. * EKG reveals junctional rhythm * Laboratory data: WBC 8.9. Hemoglobin 11.8. Platelet count 366. Sodium 139. Potassium 4.5. BUN 19. Creatinine 1.02. Lactic acid 1.2. TSH 1.190. * Current home cardiac medications include Lipitor 10 mg daily, Lasix 40 mg daily, and Xarelto 20mg with dinner * Most recent echocardiogram obtained in March 2020 revealed ejection fraction 50-55%, mild MR, trace TR * Cardiac catheterization history: 2018 revealing no significant obstructive coronary artery disease. 09/19/2022 Patient examined this morning at the bedside. Patient denies chest pain or pressure. She denies shortness of breath. Patient appears to remain in a junctional rhythm on telemetry. Patient is asymptomatic. Blood pressure is stable. 09/20/2022 Patient examined this morning at the bedside. Patient denies chest pain or pressure. She denies shortness of breath. Heart rates have improved after adding Hyoscyamine, currently in the 60s. PHYSICAL EXAM: VITAL SIGNS: Reviewed. GENERAL: Well-developed in no acute distress. HEENT: Head is normocephalic. Pupils are equal, round. Sclerae anicteric. Mucous membranes of the mouth are moist. Neck supple. No JVD or thyromegaly LUNGS: Respirations even and unlabored. Lungs essentially clear to auscultation bilaterally. HEART: Regular rate and rhythm. S1 and S2 heard. ABDOMEN: Soft. Nondistended. Nontender. EXTREMITIES: Normal range of motion. No clubbing or cyanosis. Peripheral pulses intact. No lower extremity edema NEUROLOGIC: Awake and alert. Oriented x 3. ASSESSMENT: Bilateral chronic nonhealing wounds of right heel and left great toe Junctional rhythm Syncopal episodes at home History of sick sinus syndrome Paroxysmal atrial fibrillation Hypertension Diabetes Obstructive sleep apnea Morbid obesity PLAN: Continue telemetry monitoring Patient with junctional rhythm and syncopal episodes at home. Patient will likely require permanent pacemaker once her infection resolves Continue Hyoscyamine 0.375mg BID We will follow as needed. Please call with questions or concerns. Nurse practitioner note has been reviewed by physician. Signing provider agrees with the documented findings, assessment, and plan of care. Objective - Vital Signs Vital signs: Vital Signs Temp 98.0 F 09/20/22 07:02 Pulse 50 L 09/20/22 07:02 Resp 14 09/20/22 07:02 BP 119/72 09/20/22 07:02 Pulse Ox 99 09/20/22 07:02 FiO2 Intake & Output 09/19/22 09/20/22 09/20/22 18:59 06:59 18:59 Intake Total 200 Balance 200 Intake: Oral 200 Other: Voiding Method Toilet # Voids 2 1 - Labs CBC & Chem 7: 09/14/22 15:57 09/16/22 05:30 Labs: Microbiology - Last 24 Hours (Table) 09/15/22 15:29 Blood Culture - Preliminary Blood No Growth after 96 hours 09/16/22 04:00 Gram Stain - Final Foot - Right Wound Culture - Final Staphylococcus aureus
[2022-09-20 12:38] VITALS: BP 113/77; PULSE 61; RESP 15; TEMP 97.7
--- NOTE | 2022-09-20 12:59 | P.PN ---
Subjective Progress Note Date: 09/20/22 Principal diagnosis: Right heel wound and right leg cellulitis Patient is a 67-year-old female with a past medical history significant for diabetes mellitus hypertension hyperlipidemia peripheral neuropathy this patient apparently did have a chronic nonhealing wound to the right heel area and the plantar aspect of the left big toe, presented to the hospital with increasing swelling redness right leg failing outpatient Bactrim DS therapy. On today's evaluation that is 09/20/2022, the patient remains to be afebrile, the patient denies pain to the right lower extremity because of her underlying neuropathy, the patient denies any chest pain shortness of cough no abdominal pain and no diarrhea Objective - Vital Signs Vital signs: Vital Signs Temp 97.7 F 09/20/22 12:07 Pulse 61 09/20/22 12:07 Resp 15 09/20/22 12:07 BP 113/77 09/20/22 12:07 Pulse Ox 98 09/20/22 12:07 FiO2 Intake & Output 09/19/22 09/20/22 09/20/22 18:59 06:59 18:59 Intake Total 200 Balance 200 Intake: Oral 200 Other: Voiding Method Toilet # Voids 2 1 - Exam GENERAL DESCRIPTION: An elderly female lying in bed in no distress RESPIRATORY SYSTEM: Unlabored breathing , decreased breath sounds at bases HEART: S1 S2 regular rate and rhythm , ABDOMEN: Soft , no tenderness EXTREMITIES: Right heel wound is currently dressed no drainage and the dressing right leg redness improved - Labs CBC & Chem 7: 09/14/22 15:57 09/16/22 05:30 Labs: Microbiology - Last 24 Hours (Table) 09/15/22 15:29 Blood Culture - Preliminary Blood No Growth after 96 hours 09/16/22 04:00 Gram Stain - Final Foot - Right Wound Culture - Final Staphylococcus aureus Assessment and Plan (1) Cellulitis of right lower limb Current Visit: No Status: Acute Code(s): L03.115 - CELLULITIS OF RIGHT LOWER LIMB SNOMED Code(s): 224430075 (2) Diabetic ulcer of left foot Current Visit: No Status: Acute Code(s): E11.621 - TYPE 2 DIABETES MELLITUS WITH FOOT ULCER; L97.529 - NON-PRESSURE CHRONIC ULCER OTH PRT LEFT FOOT W UNSP SEVERITY SNOMED Code(s): 366735367 (3) Diabetic ulcer of right foot Current Visit: No Status: Acute Code(s): E11.621 - TYPE 2 DIABETES MELLITUS WITH FOOT ULCER; L97.519 - NON-PRS CHRONIC ULCER OTH PRT RIGHT FOOT W UNSP SEVERITY SNOMED Code(s): 065418372 Plan: 1patient with right diabetic foot infection concerning for cellulitis failing outpatient oral Bactrim DS therapy in this patient x-ray was negative for any bony changes however the patient did have diffuse swelling redness , patient did have a CT of the right foot that was negative for any abscess however mentioning wound tracking down to the calcaneus but no bony destruction however the patient did have elevated sed rate of 102 and high clinical suspicious for osteomyelitis. Bone scan was negative for any uptake at the right calcaneus where the patient did have a wound 2patient with a positive blood culture with gram-positive cocci has been finalized and staph epi more likely skin contamination 3 local wound care to the right heel and left big toe wound with dry Aquacel silver dressing changed every 48 hour 4patient seemed to have some clinical improvement and bone scan was negative for any suspicious for osteomyelitis at the right heel area did mention some abnormality at the right second toe however clinically there is no swelling no redness, local culture finalized with MSSA, patient will be able to finish therapy with oral Keflex prescription was sent to the pharmacy yesterday and close outpatient follow-up
--- NOTE | 2022-09-22 08:39 | P.DS ---
Providers Date of admission: 09/14/22 19:28 Attending physician: Brandon Jose Consults: 09/14/22 19:17 Consult Physician Urgent Consulting Provider: Blessing Bobo Consult Reason/Comments: Cellulitis, failed outpatient management Do you want consulting provider notified?: Yes Primary care [facility] Course: Final Diagnosis Bilateral chronic nonhealing wounds right heal/left great toe with right lower extremity cellulitis positive wound cultures done outpatient and failed outpatient antibiotic therapy Gram positive bacteremia likely contamination ID following Mild acute kidney injury patient is on multiple medications that are nephrotoxic, improved after stopping the oral bactrim. Hyperkalemia from [facility] resolved Paroxysmal atrial fibrillation anticoagulated with xarelto History of sick sinus syndrome with known bradycardia EKG showing junction rhythm Frequent falls/syncope at home Diabetes mellitus with neuropathy, diet controlled Hypertension History hyperlipidemia Obstructive sleep apnea does not use device Glaucoma, bilateral Coronary artery disease Gastroesophageal reflux disease Full Code Discharge Disposition Patient is stable for discharge home. Wound cultures have finalized showing MSSA and she will discharge on 10 days of oral keflex. Cardiology recommending patient to continue on hyoscyamine and follow up with cardiology for further work up regarding permanent pacemaker. Physical therapy have evaluated and patient is stable for discharge home. She will continue to follow with [facility] homecare and physical therapy services have been added on discharge. Follow up with [facility] wound care center as previous. Gabapentin has been decreased. Recommend to repeat BMP in 2 to 3 days. Follow up with Dr. Garcia in 1 to 2 days. Hospital Course This is a 67 year old female who follows with Dr. Garcia, medical history of atrial fibrillation anticoagulated with xarelto, diabetes, GERD, hypertension, hyperlipidemia, sleep apnea, thyroid disorder, peripheral neuropathy, sleep apena. She lives in an apartment, does not drive. He has family that helps take her to appointments. Most of her meals consist of frozen dinners. Presents to the hospital from the wound care clinic after failing outpatient therapy for nonhealing wounds one on the right heel and on the bottom of the left great toe. Wounds have been present over the last year. Wound cultures were taken of the right heel wound on 09/07/2021 showing staphylococcus aureus and strep agalactiae. She was being treated outpatient with oral bactrim without much improvement in her symptoms. She does present now with significant redness to her right lower rodriguez and ankle and drainage from both wounds. Reports no chest pain, no shortness of breath, no fever or chills. Right foot xray showing no evidence for osteomyelitis. No white count on admission. BUN 22, creatinine 1.29. Blood glucose is 87. Most recent A1C from 09/07/22 is 6.5. Blood culture preliminary showing gram positive cocci in clusters. Patient has been started on IV vancomycin and infectious disease has been consulted for further evaluation. Blood culture finalized to micrococcus species/coagulase negative staph which is likely a contaminent species. She did undergo right foot CT and bone scan without evidence for osteomyelitis and right leg cellulitis has improved. And infectious disease recommending oral antibiotics on discharge. Patient was noted to be bradycardic heart rate in the 40s and had reported episodes of syncope with falls at home. Patient had EKG showing junctional rhythm. Cardiology evaluated the patient and was started on hyoscamine. Heart had improved and patient has had no reports of snycopal episodes and reports no dizziness or lightheadedness. Cardiology recommending possible permanent pacemaker after patient completes antibiotics. She has been evaluated by PT and stable for DC home with homecare services. 09/20/2022 Patient is evaluated today ambulating in room. No acute events overnight. Denying shortness of breath, no chest pain, no dizziness or lightheadedness. Lungs are clear, S1 S2 auscultated, abdomen is soft and nontender. Alert x3, focal neurological exam is negative. She has been cleared by cardiology and infectious disease for discharge with above mentioned recommendations. Most recent labs showing sodium 139, potassium 4.5, chloride 110, BUN 19, creatinine 1.02. TSH 1.190. Procalcitonin level 0.03. Patient is afebrile, heart rate 61, blood pressure 113/77, 98% room air. Total time taken in discharge planning greater than 35 minutes. Please see medication reconciliation for a list of current medication. Thank you for allowing us to participate in the care of this patient. The impression and plan of care has been dictated by Evon Hathaway, Nurse Practitioner as directed. Dr. Treasure MD I have performed a history and physical examination and medical decision making of this patient, discussed the same with the dictator, and agree with the dictators assessment and plan as written, documented as a scribe. Based on total visit time, I have performed more than 50% of this visit. Patient Condition at Discharge: Stable Plan - Discharge Summary Discharge Rx Participant: No New Discharge Prescriptions: New Cephalexin [Keflex] 500 mg PO Q6HR 10 Days #40 cap Hyoscyamine Sulfate [Levbid] 0.375 mg PO BID #60 tab Gabapentin [Neurontin] 300 mg PO TID 3 Days #9 cap Continue Meclizine [Antivert] 25 mg PO BID Atorvastatin [Lipitor] 10 mg PO DAILY Omeprazole Magnesium [PriLOSEC OTC] 20 mg PO DAILY Rivaroxaban [Xarelto] 20 mg PO W/SUPPER cycloSPORINE [Restasis] 1 drop BOTH EYES BID Ibuprofen 200 mg PO DAILY PRN PRN Reason: Pain Levothyroxine Sodium [Synthroid] 50 mcg PO DAILY Dorzolamide-Timol 2.23%/0.68% [Cosopt] 1 drop BOTH EYES BID Potassium Gluconate [Potassium Gluconate ER] 99 mg PO DAILY Furosemide [Lasix] 40 mg PO DAILY Netarsudil Mesylat/Latanoprost [Rocklatan 0.02%-0.005% Eye Drp] 1 drop BOTH EYES BID Cholecalciferol [Vitamin D3 (125 Mcg = 5000 Iu)] 125 mcg PO DAILY traMADol HCL 50 mg PO DAILY PRN PRN Reason: Pain Docusate [Colace] 100 mg PO DAILY PRN PRN Reason: Constipation Discontinued Gabapentin [Neurontin] 400 mg PO 5XD #15 cap Sulfamethoxazole/Trimethoprim [Bactrim DS 800-160 mg] 1 tab PO BID Discharge Medication List Atorvastatin [Lipitor] 10 mg PO DAILY 05/14/17 [History] Meclizine [Antivert] 25 mg PO BID 05/14/17 [History] Omeprazole Magnesium [PriLOSEC OTC] 20 mg PO DAILY 05/14/17 [History] Rivaroxaban [Xarelto] 20 mg PO W/SUPPER 08/22/17 [History] Ibuprofen 200 mg PO DAILY PRN 04/22/18 [History] Levothyroxine Sodium [Synthroid] 50 mcg PO DAILY 04/22/18 [History] cycloSPORINE [Restasis] 1 drop BOTH EYES BID 04/22/18 [History] Dorzolamide-Timol 2.23%/0.68% [Cosopt] 1 drop BOTH EYES BID 06/04/19 [History] Potassium Gluconate [Potassium Gluconate ER] 99 mg PO DAILY 02/04/20 [History] Cholecalciferol [Vitamin D3 (125 Mcg = 5000 Iu)] 125 mcg PO DAILY 03/07/22 [History] Furosemide [Lasix] 40 mg PO DAILY 03/07/22 [History] Netarsudil Mesylat/Latanoprost [Rocklatan 0.02%-0.005% Eye Drp] 1 drop BOTH EYES BID 07/07/22 [History] traMADol HCL 50 mg PO DAILY PRN 07/07/22 [History] Docusate [Colace] 100 mg PO DAILY PRN 09/14/22 [History] Cephalexin [Keflex] 500 mg PO Q6HR 10 Days #40 cap 09/19/22 [Rx] Gabapentin [Neurontin] 300 mg PO TID 3 Days #9 cap 09/20/22 [Rx] Hyoscyamine Sulfate [Levbid] 0.375 mg PO BID #60 tab 09/20/22 [Rx] Follow up Appointment(s)/Referral(s): Kori Clarke MD [STAFF PHYSICIAN] - 1 Week (Patient needs to call to make a follow up appointment) [facility] [NON-STAFF] - 09/21/22 1:15 pm Blaze Garcia DO [Primary Care Provider] - 1-2 days (Patient needs to call doctor to make a follow up appointment) Blessing Bobo MD [STAFF PHYSICIAN] - 09/26/22 2:45 pm [facility] Nurse, [NON-STAFF] - Ambulatory/Diagnostic Orders: Basic Metabolic Panel [LAB.AMB] Time Frame: 3 Days, Location: None Selected Activity/Diet/Wound Care/Special Instructions: Continue oral antibiotics for the next 10 days Follow up with your cushion stuffer Discharge/Stand Alone Forms: Who Do I Call?, Community Resources, Help In The Home, Personal Membership Sales Advisor Discharge Disposition: HOME WITH HOME HEALTH SERVICES
== END 2022-09-20 16:09 | disposition home health service (06) ==
LOC: EC 14:12 → 5NMEDONC 19:28 → INTOOBSV 19:28 → 5NMEDONC 20:37 → UNDODISIN 09-20 16:09
PROVIDERS: ADMIT Hospitalist; ATTEND Hospitalist
DX: E11.622 Type 2 diabetes mellitus with other skin ulcer (principal); L03.115 Cellulitis of right lower limb; R78.81 Bacteremia; B96.89 Other specified bacterial agents as the cause of diseases classified elsewhere; E11.65 Type 2 diabetes mellitus with hyperglycemia; K21.9 Gastro-esophageal reflux disease without esophagitis; E78.5 Hyperlipidemia, unspecified; I10 Essential (primary) hypertension; I48.0 Paroxysmal atrial fibrillation; G47.33 Obstructive sleep apnea (adult) (pediatric); E11.42 Type 2 diabetes mellitus with diabetic polyneuropathy; E87.5 Hyperkalemia; N17.9 Acute kidney failure, unspecified; H40.9 Unspecified glaucoma; I25.10 Atherosclerotic heart disease of native coronary artery without angina pectoris; E66.01 Morbid (severe) obesity due to excess calories; Z87.440 Personal history of urinary (tract) infections; Z79.899 Other long term (current) drug therapy; Z79.01 Long term (current) use of anticoagulants; Z79.890 Hormone replacement therapy
CPT/HCPCS: 96366 ×6; 96367; 96365; 99284; 36415; 93005 ×2; 97530 ×4; 97162; 97535 ×2; 97166; 80053; 80048; 85652; 84443; 83605; 85025; 86140; 87040 ×2; 87070; 87205; 87075; 87077; 87186; 84145; 73630; 73700; 78315; G0378 ×7; A9503; J3370 ×2; J0295 ×6

== ENCOUNTER 2023-07-20 14:44 | Emergency (ER) | payer MEDICARE ==
--- NOTE | 2023-07-20 15:42 | ED ---
Lower Extremity Injury HPI - General Chief Complaint: Extremity Injury, Lower Stated Complaint: fall Time Seen by Provider: 07/20/23 14:55 Source: patient, family, RN notes reviewed Mode of arrival: ambulatory Limitations: no limitations - History of Present Illness Initial Comments: Patient is 68-year-old female presented to ER with chief complaint of left knee injury. Patient was previously seen at urgent care and received an x-ray of her left knee which was negative for acute fractures or dislocations. Patient states she is taking several toe. She reports pain with movement and limited range of motion due to the swelling. Urgent care stated that she needed to come to the ER for further evaluation with concern of a ruptured blood vessel. [place] vicente has no other complaints at this time. - Related Data Home Medications Medication Instructions Recorded Confirmed Atorvastatin [Lipitor] 10 mg PO DAILY 05/14/17 09/14/22 Meclizine [Antivert] 25 mg PO BID 05/14/17 09/14/22 Omeprazole Magnesium [PriLOSEC OTC] 20 mg PO DAILY 05/14/17 09/14/22 Rivaroxaban [Xarelto] 20 mg PO W/SUPPER 08/22/17 09/14/22 Ibuprofen 200 mg PO DAILY PRN 04/22/18 09/14/22 Levothyroxine Sodium [Synthroid] 50 mcg PO DAILY 04/22/18 09/14/22 cycloSPORINE [Restasis] 1 drop BOTH EYES BID 04/22/18 09/14/22 Dorzolamide-Timol 2.23%/0.68% 1 drop BOTH EYES BID 06/04/19 09/14/22 [Cosopt] Potassium Gluconate [Potassium 99 mg PO DAILY 02/04/20 09/14/22 Gluconate ER] Cholecalciferol [Vitamin D3 (125 125 mcg PO DAILY 03/07/22 09/14/22 Mcg = 5000 Iu)] Furosemide [Lasix] 40 mg PO DAILY 03/07/22 09/14/22 Netarsudil Mesylat/Latanoprost 1 drop BOTH EYES BID 07/07/22 09/14/22 [Rocklatan 0.02%-0.005% Eye Drp] traMADol HCL 50 mg PO DAILY PRN 07/07/22 09/14/22 Docusate [Colace] 100 mg PO DAILY PRN 09/14/22 09/14/22 Previous Rx's Medication Instructions Recorded Cephalexin [Keflex] 500 mg PO Q6HR 10 Days #40 cap 09/19/22 Gabapentin [Neurontin] 300 mg PO TID 3 Days #9 cap 09/20/22 Hyoscyamine Sulfate [Levbid] 0.375 mg PO BID #60 tab 09/20/22 Allergies Allergy/AdvReac Type Severity Reaction Status Date / Time metformin Allergy Anaphylaxis Verified 07/20/23 14:53 Review of Systems ROS Statement: Those systems with pertinent positive or pertinent negative responses have been documented in the HPI. ROS Other: All systems not noted in ROS Statement are negative. Past Medical History Past Medical History: Atrial Fibrillation, Diabetes Mellitus, Eye Disorder, GERD/Reflux, Hearing Disorder / Deafness, Hyperlipidemia, Hypertension, Neurologic Disorder, Osteoarthritis (OA), Sleep Apnea/CPAP/BIPAP, Thyroid Disorder, Vascular Disorder Additional Past Medical History / Comment(s): "Borderline diabetic", neuropathy bilateral feet/legs, bilateral feet diabetic ulcers/diabetic stasis, occasional bilateral lower leg edema, past bilateral lower leg cellulitis, varicosities, paroxysmal afib, vertigo, bilateral tinnitis, umbilical hernia, MICHELLE but unable to tolerate device, chronic back pain/scoliosis, bilateral eye glaucoma/dry eyes, R eye muscle weakness, benign colon polyps, UTIs. History of Any Multi-Drug Resistant Organisms: ESBL Date of last positivie culture/infection: 03/28/22 ESBL MDRO Source:: Urine Past Surgical History: Heart Catheterization, Orthopedic Surgery, Tonsillectomy Additional Past Surgical History / Comment(s): Right ankle fracture with ORIF and some hardware has since been removed, right foot tarsal release, cyst removed from back, R heel debridements, L great toe debridements, colonoscopy with polypectomies, bilateral cataract removal/ lens implants. Past Anesthesia/Blood Transfusion Reactions: No Reported Reaction Past Psychological History: No Psychological Hx Reported Smoking Status: Never smoker Past Alcohol Use History: None Reported Past Drug Use History: None Reported - Past Family History Mother Family Medical History: Cancer, Renal Disease Additional Family Medical History / Comment(s): colon Father Family Medical History: COPD Additional Family Medical History / Comment(s): father of ephysema at age 74 yrs. General Exam Limitations: no limitations General appearance: alert, in no apparent distress Respiratory exam: Present: normal lung sounds bilaterally. Absent: respiratory distress, wheezes, rales, rhonchi, stridor Cardiovascular Exam: Present: regular rate, normal rhythm, normal heart sounds. Absent: systolic murmur, diastolic murmur, rubs, gallop, clicks GI/Abdominal exam: Present: soft, normal bowel sounds. Absent: distended, tenderness, guarding, rebound, rigid Extremities exam: Present: other (Left knee hematoma. 2+ dorsalis pedis pulse on the left. Patient has range of motion of ankle. Limited range of motion of the knee due to swelling and pain.) Neurological exam: Present: alert, oriented X3, CN II-XII intact Psychiatric exam: Present: normal affect, normal mood Course Vital Signs 07/20/23 14:50 Temperature 98.2 F Pulse Rate 73 Respiratory 18 Rate Blood Pressure 128/87 O2 Sat by Pulse 99 Oximetry Medical Decision Making - Medical Decision Making Was pt. sent in by a medical professional or institution (, PA, EVENTS ASSISTANT, urgent care, hospital, or jail...) When possible be specific @ -Urgent care Did you speak to anyone other than the patient for history (EMS, parent, family, police, friend...)? What history was obtained from this source @ -Family Did you review nursing and triage notes (agree or disagree)? Why? @ -I reviewed and agree with nursing and triage notes Were old charts reviewed (outside hosp., previous admission, EMS record, old EKG, old radiological studies, urgent care reports/EKG's, jail records)? Report findings @ -No old charts were reviewed Differential Diagnosis (chest pain, altered mental status, abdominal pain women, abdominal pain men, vaginal bleeding, weakness, fever, dyspnea, syncope, headache, dizziness, GI bleed, back pain, seizure, CVA, palpatations, mental health, musculoskeletal)? @ -Differential Musculoskeletal: Muscular strain, contusion, ligament sprain, fracture, arthritis, septic arthritis, bursitis, cellulitis, muscle spasm, nerve compression, DVT, arterial occlusion, herpes zoster, electrolyte abnormality, tumor.... This is not meant to be in all inclusive list EKG interpreted by me (3pts min.). @ -None X-rays interpreted by me (1pt min.). @ -None done CT interpreted by me (1pt min.). @ -CT of left knee shows a prepatellar subcutaneous hematoma measuring 14.4 x 11.2 x 4.1. There is no acute fractures or dislocations noted. U/S interpreted by me (1pt. min.). @ -None done What testing was considered but not performed or refused? (CT, X-rays, U/S, duyen bs)? Why? @ -None What meds were considered but not given or refused? Why? @ -None Did you discuss the management of the patient with other professionals (professionals i.e. , PA, EVENTS ASSISTANT, lab, RT, psych nurse, secondary social studies teacher, proposal consultant, teacher, chief growth officer, correctional casework specialist)? Give summary @ -Yes, I discussed this case with Gato Tyson from orthopedics. He advised outpatient management. Was smoking cessation discussed for >3mins.? @ -No Was critical care preformed (if so, how long)? @ -No Were there social determinants of health that impacted care today? How? (Homelessness, low income, unemployed, alcoholism, drug addiction, transportation, low edu. Level, literacy, decrease access to med. care, usp, rehab)? @ -No Was there de-escalation of care discussed even if they declined (Discuss DNR or withdrawal of care, Hospice)? DNR status @ -No What co-morbidities impacted this encounter? (DM, HTN, Smoking, COPD, CAD, Cancer, CVA, ARF, Chemo, Hep., AIDS, mental health diagnosis, sleep apnea, morbid obesity)? @ -None Was patient admitted / discharged? Hospital course, mention meds given and route, prescriptions, significant lab abnormalities, going to OR and other pertinent info. @ -Discharge. CT of left knee showed a prepatellar subcutaneous hematoma measuring 14.4 x 11.2 x 4.1. There is no acute fractures or dislocations noted. Patient was neurovascularly intact. I discussed this case with orthopedics who advised outpatient management. I discussed with the patient to rest, ice, use compression and elevate her leg. Return parameters were discussed. Patient will be discharged home in stable condition with follow-up to PCP. Patient expressed understanding and agreement care plan. Undiagnosed new problem with uncertain prognosis? @ -No Drug Therapy requiring intensive monitoring for toxicity (Heparin, Nitro, Insulin, Cardizem)? @ -No Were any procedures done? @ -No Diagnosis/symptom? @ -Prepatellar subcutaneous hematoma Acute, or Chronic, or Acute on Chronic? @ -Acute Uncomplicated (without systemic symptoms) or Complicated (systemic symptoms)? @ -Uncomplicated Side effects of treatment? @ -No Exacerbation, Progression, or Severe Exacerbation? @ -No Poses a threat to life or bodily function? How? (Chest pain, [place], [place], pneumonia, PE, COPD, DKA, ARF, appy, cholecystitis, CVA, Diverticulitis, Homicidal, Suicidal, threat to staff... and all critical care pts) @ -No Disposition Clinical Impression: Subcutaneous hematoma Disposition: HOME SELF-CARE Condition: Stable Instructions (If sedation given, give patient instructions): Knee Pain (ED) Additional Instructions: Please return to the Emergency Department if symptoms worsen or any other concerns. Please rest, ice, use compression Jack bandage, elevate extremity. I encourage you to continue movement as tolerated. Please return to ER if any of her symptoms worsen. Is patient prescribed a controlled substance at d/c from ED?: No Referrals: Blaze Garcia DO [Primary Care Provider] - 1-2 days Time of Disposition: 17:52
--- NOTE | 2023-07-20 17:01 | CT ---
EXAMINATION TYPE: CT knee LT wo con DATE OF EXAM: 07/20/2023 COMPARISON: None HISTORY: 68-year-old female Fall, trauma to LT knee, swelling and bruising. Pt on thinners TECHNIQUE: Contiguous axial scanning of the left knee without IV contrast. Coronal and sagittal recon structions performed. 3-D reconstructions generated on a dedicated independent workstation. CT DLP: 121.2 mGycm Automated exposure control for dose reduction was used. FINDINGS: There is extensive anterior subcutaneous soft tissue hematoma measuring up to 11.2 cm wide by 14.4 cm craniocaudal by 4.1 cm thick. Some internal cystic areas of liquefaction is also demonstrated. The underlying extensor mechanism appears to be intact. No significant underlying knee joint effusion. No acute fracture, subluxation, or dislocation is seen. Surrounding soft tissue edema and stranding throughout. IMPRESSION: 1. LARGE PREPATELLAR SUBCUTANEOUS SOFT TISSUE HEMATOMA MEASURING up to 14.4 x 11.2 x 4.1 cm. Extensiv e surrounding bruising is also present. 2. No underlying acute osseous abnormality seen. No underlying knee joint effusion.
[2023-07-20 18:51] VITALS: BP 109/76; PULSE 82; RESP 16; TEMP 97.9
== END 2023-07-20 18:38 | disposition home or self-care (01) ==
LOC: EC 14:44
DX: S80.02XA Contusion of left knee, initial encounter (principal); I48.91 Unspecified atrial fibrillation; E11.9 Type 2 diabetes mellitus without complications; K21.9 Gastro-esophageal reflux disease without esophagitis; E78.5 Hyperlipidemia, unspecified; I10 Essential (primary) hypertension; M19.90 Unspecified osteoarthritis, unspecified site; E07.9 Disorder of thyroid, unspecified; Z88.8 Allergy status to other drugs, medicaments and biological substances; Z79.890 Hormone replacement therapy; Z79.899 Other long term (current) drug therapy; W19.XXXA Unspecified fall, initial encounter
CPT/HCPCS: 99284

== ENCOUNTER → 2023-11-01 | Outpatient (CLI) | payer MEDICARE ==
--- NOTE | 2023-11-01 15:20 | XR ---
EXAMINATION TYPE: XR foot complete RT DATE OF EXAM: 11/01/2023 COMPARISON: 09/14/2022 HISTORY: Chronic ulcers right foot second and third digits TECHNIQUE: 3 view right foot FINDINGS: No acute fractures are evident. Soft tissue swelling is over the second and third digits so me prominence of the fourth digit soft tissues may be present. Structures are somewhat osteopenic. There is some erosion along the tuft of the third digit. Correlate for acute osteomyelitis. In the la teral projection there may be erosion of the distal second digit as well not as well-visualized AP pr ojection. IMPRESSION: 1. Loss of cortical margins tuft of the second and third digits better visualized on the lateral rig ht foot suggestive for acute osteomyelitis.
== END | disposition home or self-care (01) ==
LOC: RADXRMAIN 14:31
PROVIDERS: ATTEND Family Medicine
DX: L97.512 Non-pressure chronic ulcer of other part of right foot with fat layer exposed (principal)

== ENCOUNTER 2023-11-06 01:31 | Emergency (ER) | payer MEDICARE ==
[2023-11-06 02:05] VITALS: TEMP 97.8
--- NOTE | 2023-11-06 02:10 | ED ---
Fall HPI - General Chief Complaint: Fall Stated Complaint: FALL Time Seen by Provider: 11/06/23 01:40 Source: patient, EMS Mode of arrival: EMS - History of Present Illness Initial Comments: This patient is 68-year-old woman who was brought to have evaluation for ground- level fall. The patient reportedly having loss of balance and falling backward. The patient did strike her head and is taking blood thinning medications. Patient also having some pain to the back and to the knee as well. MD Complaint: fall Onset/Timin -: hour(s) Fall From: standing When Fall Occurred: [address] Fall Occurred: home Loss of Consciousness: none Prolonged Down Time?: no Symptoms Prior to Fall: none Location: head, back Severity: mild Context: tripped/slipped - Related Data Home Medications Medication Instructions Recorded Confirmed Atorvastatin [Lipitor] 10 mg PO DAILY 05/14/17 09/14/22 Meclizine [Antivert] 25 mg PO BID 05/14/17 09/14/22 Omeprazole Magnesium [PriLOSEC OTC] 20 mg PO DAILY 05/14/17 09/14/22 Rivaroxaban [Xarelto] 20 mg PO W/SUPPER 08/22/17 09/14/22 Ibuprofen 200 mg PO DAILY PRN 04/22/18 09/14/22 Levothyroxine Sodium [Synthroid] 50 mcg PO DAILY 04/22/18 09/14/22 cycloSPORINE [Restasis] 1 drop BOTH EYES BID 04/22/18 09/14/22 Dorzolamide-Timol 2.23%/0.68% 1 drop BOTH EYES BID 06/04/19 09/14/22 [Cosopt] Potassium Gluconate [Potassium 99 mg PO DAILY 02/04/20 09/14/22 Gluconate ER] Cholecalciferol [Vitamin D3 (125 125 mcg PO DAILY 03/07/22 09/14/22 Mcg = 5000 Iu)] Furosemide [Lasix] 40 mg PO DAILY 03/07/22 09/14/22 Netarsudil Mesylat/Latanoprost 1 drop BOTH EYES BID 07/07/22 09/14/22 [Rocklatan 0.02%-0.005% Eye Drp] traMADol HCL 50 mg PO DAILY PRN 07/07/22 09/14/22 Docusate [Colace] 100 mg PO DAILY PRN 09/14/22 09/14/22 Previous Rx's Medication Instructions Recorded Cephalexin [Keflex] 500 mg PO Q6HR 10 Days #40 cap 09/19/22 Gabapentin [Neurontin] 300 mg PO TID 3 Days #9 cap 09/20/22 Hyoscyamine Sulfate [Levbid] 0.375 mg PO BID #60 tab 09/20/22 Allergies Allergy/AdvReac Type Severity Reaction Status Date / Time metformin Allergy Anaphylaxis Verified 11/06/23 01:44 Review of Systems ROS Statement: Those systems with pertinent positive or pertinent negative responses have been documented in the HPI. ROS Other: All systems not noted in ROS Statement are negative. Constitutional: Denies: fever, weakness ENT: Denies: epistaxis Respiratory: Denies: cough, dyspnea Cardiovascular: Denies: chest pain, palpitations, syncope Gastrointestinal: Denies: abdominal pain, vomiting, diarrhea Genitourinary: Denies: dysuria, hematuria Musculoskeletal: Reports: back pain, arthralgia Skin: Denies: rash Neurological: Reports: headache. Denies: weakness, numbness Past Medical History Past Medical History: Atrial Fibrillation, Diabetes Mellitus, Eye Disorder, GERD/Reflux, Hearing Disorder / Deafness, Hyperlipidemia, Hypertension, Neurologic Disorder, Osteoarthritis (OA), Sleep Apnea/CPAP/BIPAP, Thyroid Disorder, Vascular Disorder Additional Past Medical History / Comment(s): "Borderline diabetic", neuropathy bilateral feet/legs, bilateral feet diabetic ulcers/diabetic stasis, occasional bilateral lower leg edema, past bilateral lower leg cellulitis, varicosities, paroxysmal afib, vertigo, bilateral tinnitis, umbilical hernia, MICHELLE but unable to tolerate device, chronic back pain/scoliosis, bilateral eye glaucoma/dry eyes, R eye muscle weakness, benign colon polyps, UTIs. History of Any Multi-Drug Resistant Organisms: ESBL Date of last positivie culture/infection: 03/28/22 ESBL MDRO Source:: Urine Past Surgical History: Heart Catheterization, Orthopedic Surgery, Tonsillectomy Additional Past Surgical History / Comment(s): Right ankle fracture with ORIF and some hardware has since been removed, right foot tarsal release, cyst removed from back, R heel debridements, L great toe debridements, colonoscopy with polypectomies, bilateral cataract removal/ lens implants. Past Anesthesia/Blood Transfusion Reactions: No Reported Reaction Past Psychological History: No Psychological Hx Reported Smoking Status: Never smoker Past Alcohol Use History: None Reported Past Drug Use History: None Reported - Past Family History Mother Family Medical History: Cancer, Renal Disease Additional Family Medical History / Comment(s): colon Father Family Medical History: COPD Additional Family Medical History / Comment(s): father of ephysema at age 74 yrs. General Exam General appearance: alert, in no apparent distress Head exam: Present: normocephalic, other (Small contusion posterior scalp) Eye exam: Present: normal appearance. Absent: scleral icterus, conjunctival injection Neck exam: Present: normal inspection, full ROM. Absent: tenderness Respiratory exam: Present: normal lung sounds bilaterally. Absent: respiratory distress, wheezes, rales, rhonchi, chest wall tenderness, accessory muscle use Cardiovascular Exam: Present: regular rate, normal rhythm, normal heart sounds. Absent: systolic murmur, diastolic murmur, rubs, gallop GI/Abdominal exam: Present: soft. Absent: distended, tenderness, guarding, rebound, rigid, mass Extremities exam: Present: full ROM, tenderness, normal capillary refill, other (Contusion mild tenderness to me. No deformity. There is range of motion.). Absent: pedal edema, calf tenderness Back exam: Present: normal inspection. Absent: CVA tenderness (R), CVA tenderness (L) Neurological exam: Present: alert. Absent: motor sensory deficit Skin exam: Present: warm, dry, intact, normal color. Absent: rash Course Vital Signs 11/06/23 11/06/23 11/06/23 01:40 02:44 03:50 Temperature 97.8 F Pulse Rate 88 56 L 60 Respiratory 16 18 18 Rate Blood Pressure 151/84 154/89 139/85 O2 Sat by Pulse 100 99 98 Oximetry 11/06/23 11/06/23 11/06/23 04:00 05:16 06:00 Temperature Pulse Rate 65 59 L 61 Respiratory 18 18 18 Rate Blood Pressure 116/89 127/75 135/88 O2 Sat by Pulse 98 98 99 Oximetry Medical Decision Making - Medical Decision Making The patient had CT scan of the brain and C-spine that I interpreted as negative for acute bony injury and negative for acute intracranial hemorrhage The patient had x-ray of the spine that I interpreted as negative for acute fracture or subluxation. The patient had x-ray of the knee which I interpreted as negative for acute fracture. Radiology does raise question whether there is occult fracture knee but patient does have range of motion and is able to tolerate loading placed on the knee. Was pt. sent in by a medical professional or institution (CALLIE Martinez, TRANSMISSION TESTER, urgent care, hospital, or half-way...) When possible be specific @ -[No] Did you speak to anyone other than the patient for history (EMS, parent, family, police, friend...)? What history was obtained from this source @ -[No] Did you review nursing and triage notes (agree or disagree)? Why? @ -[I reviewed and agree with nursing and triage notes] Were old charts reviewed (outside hosp., previous admission, EMS record, old EKG, old radiological studies, urgent care reports/EKG's, half-way records)? Report findings @ -[No old charts were reviewed] Differential Diagnosis (chest pain, altered mental status, abdominal pain women, abdominal pain men, vaginal bleeding, weakness, fever, dyspnea, syncope, headache, dizziness, GI bleed, back pain, seizure, CVA, palpatations, mental health, musculoskeletal)? @ -[Differential Musculoskeletal Muscular strain, contusion, ligament sprain, fracture, arthritis, septic arthritis, bursitis, cellulitis, muscle spasm, nerve compression, DVT, arterial occlusion, herpes zoster, electrolyte abnormality, tumor.... This is not meant to be in all inclusive list EKG interpreted by me (3pts min.). @ -[As above] X-rays interpreted by me (1pt min.). @ -[I interpreted as above CT interpreted by me (1pt min.). @ -[I interpreted as above U/S interpreted by me (1pt. min.). @ -[None done] What testing was considered but not performed or refused? (CT, X-rays, U/S, labs)? Why? @ -[None] What meds were considered but not given or refused? Why? @ -[None] Did you discuss the management of the patient with other professionals (professionals i.e. CALLIE Martinez, TRANSMISSION TESTER, lab, RT, psych nurse, social insurance adviser, ball machine operator, teacher, intelligence officer, family preservation caseworker)? Give summary @ -[No] Was smoking cessation discussed for >3mins.? @ -[No] Was critical care preformed (if so, how long)? @ -[No] Were there social determinants of health that impacted care today? How? (Homelessness, low income, unemployed, alcoholism, drug addiction, transportation, low edu. Level, literacy, decrease access to med. care, fdc, rehab)? @ -[No] Was there de-escalation of care discussed even if they declined (Discuss DNR or withdrawal of care, Hospice)? DNR status @ -[No] What co-morbidities impacted this encounter? (DM, HTN, Smoking, COPD, CAD, Cancer, CVA, ARF, Chemo, Hep., AIDS, mental health diagnosis, sleep apnea, morbid obesity)? @ -[None] Was patient admitted / discharged? Hospital course, mention meds given and route, prescriptions, significant lab abnormalities, going to OR and other pertinent info. @ -[hospital course] Undiagnosed new problem with uncertain prognosis? @ -[No] Drug Therapy requiring intensive monitoring for toxicity (Heparin, Nitro, Insulin, Cardizem)? @ -[No] Were any procedures done? @ -[No] Diagnosis/symptom? @ -[Acute minor head injury Patient on blood thinning medications Knee contusion Back contusion Acute, or Chronic, or Acute on Chronic? @ -[Acute Uncomplicated (without systemic symptoms) or Complicated (systemic symptoms)? @ -[Uncomplicated Side effects of treatment? @ -[No] Exacerbation, Progression, or Severe Exacerbation? @ -[No] Poses a threat to life or bodily function? How? (Chest pain, [place], [place], pneumonia, PE, COPD, DKA, ARF, appy, cholecystitis, CVA, Diverticulitis, Homicidal, Suicidal, threat to staff... and all critical care pts) @ -[No] Disposition Clinical Impression: Fall, Blood thinned due to long-term anticoagulant use, Head injury, Knee contusion Disposition: HOME SELF-CARE Condition: Fair Instructions (If sedation given, give patient instructions): Fall Prevention for Older Adults (ED), Head Injury (ED), Knee Pain (ED) Is patient prescribed a controlled substance at d/c from ED?: No Referrals: Blaze Garcia DO [Primary Care Provider] - 1-2 days
--- NOTE | 2023-11-06 03:01 | XR ---
EXAM: XR Right Knee, 3 Views CLINICAL HISTORY: ITS.REASON XR Reason: fall injury TECHNIQUE: Three views of the right knee. COMPARISON: No relevant prior studies available. FINDINGS: Bones/joints: Small joint effusion with questionable fat fluid level. No acute fracture. No dislocation. Soft tissues: Prominent soft tissue swelling. IMPRESSION: No obvious fracture seen, however there is prominent soft tissue swelling with questionable fat fluid level within the joint space. As such, a radiographically occult fracture may be suspected.
--- NOTE | 2023-11-06 03:03 | XR ---
EXAM: XR Lumbosacral Spine, 2 or 3 Views CLINICAL HISTORY: ITS.REASON XR Reason: fall injury TECHNIQUE: Frontal and lateral views of the lumbar spine and sacrum. COMPARISON: No relevant prior studies available. FINDINGS: Vertebrae: Significant spondylosis, with disc height loss, disc osteophyte formation. Prominent facet arthrosis, with facet hypertrophy. Mild dextroconvex lumbar scoliosis. Overall, anatomic alignment of the lumbar spine. No acute fracture. Sacrum/coccyx: Unremarkable as visualized. No acute fracture. Disc spaces: L3-L4 disc desiccation. Soft tissues: See above. Other findings: Osseous detail obscured, moderate quantum mottling. IMPRESSION: 1. Given the body habitus and quantum mottling on crosstable imaging, bony details are obscured. 2. No obvious fracture visible. However, when able, dedicated lumbar spine evaluation recommended.
--- NOTE | 2023-11-06 03:10 | CT ---
EXAM: CT Head Without Intravenous Contrast CLINICAL HISTORY: ITS.REASON CT Reason: fall injury TECHNIQUE: Axial computed tomography images of the head/brain without intravenous contrast. CTDI is 45.3 mGy and DLP is 1044 mGy-cm. This CT exam was performed using one or more of the following dose reduction techniques: automated exposure control, adjustment of the mA and/or kV according to patient size, and/or use of iterative reconstruction technique. COMPARISON: 06/19/2022 FINDINGS: Brain: Generalized cortical atrophy. Scattered white matter lucency, likely chronic microangiopathic changes. No hemorrhage. Ventricles: Unremarkable. No ventriculomegaly. Bones/joints: Unremarkable. No acute fracture. Soft tissues: Large posterior occipital soft tissue hemorrhage and edema. Vasculature: Intracranial atherosclerotic calcifications. Sinuses: Unremarkable as visualized. No acute sinusitis. Mastoid air cells: Unremarkable as visualized. No mastoid effusion. IMPRESSION: 1. No acute intracranial hemorrhage. 2. Right posterior soft tissue hemorrhage and edema. EXAM: CT Cervical Spine Without Intravenous Contrast CLINICAL HISTORY: ITS.REASON CT Reason: fall injury TECHNIQUE: Axial computed tomography images of the cervical spine without intravenous contrast. CTDI is 31.8 mGy and DLP is 800.5 mGy-cm. This CT exam was performed using one or more of the following dose reduction techniques: automated exposure control, adjustment of the mA and/or kV according to patient size, and/or use of iterative reconstruction technique. COMPARISON: No relevant prior studies available. FINDINGS: Vertebrae: Multilevel disc desiccation, disc height loss and probable disc osteophyte formation. Degenerative C2-C3 and T1-T2 trace anterolisthesis. Otherwise, anatomic alignment of the cervical spine. No significant acute vertebral body height loss. Discs/spinal canal/neural foramina: No acute findings. No spinal canal stenosis. Soft tissues: Unremarkable. No pathologic prevertebral edema seen. Vasculature: Prominent atherosclerotic vascular calcifications. Retropharyngeal space: Retropharyngeal carotid artery, crossing the midline. Other findings: Prominent temporomandibular joint osteoarthritis. IMPRESSION: 1. No acute cervical spine fracture seen. 2. Extensive degenerative changes.
[2023-11-06] MEDS: HYDROcodone/APAP 5-325MG 1 EACH TAB PO STA (03:49)
[2023-11-06 04:07] VITALS: RESP 18
[2023-11-06 06:48] VITALS: BP 135/88; PULSE 61
== END 2023-11-06 06:34 | disposition home or self-care (01) ==
LOC: EC 01:31
DX: S80.01XA Contusion of right knee, initial encounter (principal); S09.90XA Unspecified injury of head, initial encounter; Z79.01 Long term (current) use of anticoagulants; Z88.8 Allergy status to other drugs, medicaments and biological substances; W01.10XA Fall on same level from slipping, tripping and stumbling with subsequent striking against unspecified object, initial encounter
CPT/HCPCS: 70450; 72100; 72125; 99285

== ENCOUNTER → 2025-02-17 | Outpatient (CLI) | payer MEDICARE ==
[2025-02-17 15:04] LABS: Basophils # (A) 0.04 X 10*3/uL (0.00-0.10); Basophils % (A) 0.5 %; Eosinophils # (A) 0.12 X 10*3/uL (0.04-0.35); Eosinophils % (A) 1.5 %; HCT 39.6 % (37.2-46.3); HGB 12.3 g/dL (12.0-15.0); Lymphocytes # (A) 1.33 X 10*3/uL (0.90-5.00); Lymphocytes % (A) 16.3 %; MCH 31.8 pg (27.0-32.0); MCHC 31.1 g/dL (32.0-37.0); MCV 102.3 FL (80.0-97.0); Mean Platelet Volume 10.1 FL (9.5-12.2); Monocytes % (A) 9.8 %; NRBC Per 100 WBC 0.02 X 10*3/uL (0.00-0.01); Neutrophils # (A) 5.82 X 10*3/uL (1.80-7.70); Neutrophils % (A) 71.5 %; Platelet Count 321 X 10*3/uL (140-440); RBC 3.87 X 10*6/uL (4.10-5.20); RDW 14.6 % (11.5-14.5); WBC 8.14 X 10*3/uL (4.50-10.00)
[2025-02-17 15:38] LABS: ALT 16 U/L (8-44); AST 23 U/L (13-35); Albumin 3.8 g/dL (3.8-4.9); Albumin/Globulin Ratio 1.31 Ratio (1.60-3.17); Alkaline Phosphatase 58 U/L (41-126); BUN/Creat Ratio 17.18 Ratio (12.00-20.00); Blood Urea Nitrogen 18.9 mg/dL (9.0-27.0); Calcium 9.4 mg/dL (8.7-10.3); Carbon Dioxide 27.2 mmol/L (21.6-31.8); Chloride 101 mmol/L (96-109); Globulin 2.9 g/dL (1.6-3.3); Glucose 114 mg/dL (70-110); Potassium 4.2 mmol/L (3.5-5.5); Sodium 138 mmol/L (135-145); Total Bilirubin 0.3 mg/dL (0.3-1.2); Total Protein 6.7 g/dL (6.2-8.2)
== END | disposition home or self-care (01) ==
LOC: LABWHC1 11:39
PROVIDERS: ATTEND Nurse Practitioner
DX: I48.91 Unspecified atrial fibrillation (principal)
CPT/HCPCS: 36415; 80053; 84443; 85025

== ENCOUNTER → 2025-03-11 | Day surgery (SDC) | payer MEDICARE ==
[2025-03-10 09:04] VITALS: BMI 41.3
[~2025-03-11] MED LIST changes: -ALPRAZolam 0.25 MG TAB PO PRN; -ASPIRIN 325 MG TAB PO ONE; +LACTATED RINGERS 1,000 ML IV SCH; +MIDAZOLAM 2 MG/2 ML VIAL ONE; +PILOCARPINE 2% OPHTH DROPS 15 ML BTL OP PRN; -SODIUM CHLORIDE 0.9% 1,000 ML in EMPTY BAG 1 BAG IV ONE; +fentaNYL (PF) 50 MCG/ML 2 ML AMP ONE
[2025-03-11 07:07] VITALS: TEMP 97.2
[2025-03-11] MEDS: TETRACAINE 0.5% OPHTH (PF) DROPS 4 ML BTL OP PRN (07:12)
[2025-03-11] MEDS: PILOCARPINE 2% OPHTH DROPS 15 ML BTL OP PRN (07:13)
[2025-03-11 07:26] LABS: Glucose,Whole Blood 107 mg/dL (70-110)
[2025-03-11] MEDS: IV FLUID CONTINUATION 1,000 ML IV ONE (07:30)
[2025-03-11] MEDS: BALANCED SALT IRRIG SOLN COMB2 500 ML IRRIGATION ONE (07:42)
[2025-03-11] MEDS: MOXIFLOXACIN HCL 0.5% DROPS 3 ML BTL OP PRN (07:43)
[2025-03-11] MEDS: TIMOLOL 0.5% OPHTH DROPS 5 ML BTL OP PRN (07:44)
[2025-03-11] MEDS: BALANCED SALT IRRIG SOLN COMB2 15 ML IRRIG.SOLN OPHTHALMIC ONE (07:44)
[2025-03-11] MEDS: LIDOCAINE 1% INJ 10MG/ML (5 ML VIAL-PF) SQ ONE (07:46)
--- NOTE | 2025-03-11 08:08 | P.OP ---
Date of Procedure: 03/11/25 Preoperative Diagnosis: POAG severe Postoperative Diagnosis: same Procedure(s) Performed: goniotomy left Implants: none Anesthesia: MAC Surgeon: Oj Flores Pathology: none sent Condition: stable Disposition: same day Indications for Procedure: glaucoma uncontrolled Operative Findings: no complications
[2025-03-11 08:31] VITALS: BP 143/89; PULSE 101; RESP 16
--- NOTE | 2025-03-11 22:15 | OP ---
OPERATIVE REPORT DATE OF SERVICE : 03/11/2025 PROCEDURE: Goniotomy of the left eye. PREOPERATIVE DIAGNOSIS: Primary open-angle glaucoma, severe stage. POSTOPERATIVE DIAGNOSIS: Primary open-angle glaucoma, severe stage. ANESTHESIA: Topical. ESTIMATED BLOOD LOSS: Less than 5 mL. SPECIMEN TAKEN: None. NARRATIVE: After obtaining the appropriate consent, the patient was brought to the operating room. There, she was placed under cardiac monitoring and prepped and draped in the usual sterile manner. She was approached from her left temporal side and at the 3 o'clock position, a 2.5 mm keratome was used to create a self-sealing corneal flap incision. Through this opening, 1% Xylocaine MPF 50:50 mix with balanced salt solution was injected into the anterior chamber. This was followed by Trypan blue, which was allowed to dwell in the eye for 90 seconds. This was irrigated away with balanced salt solution and the eye was stabilized with Viscoat. The patient was then asked to rotate her head to her right approximately 45 degrees and maintain a gaze in the general direction. A gonioprism was placed on the patient's eye and identification of the trabecular meshwork was easily made using a shelly and meet method. The KDB goniotomy knife was passed across the anterior chamber and into the nasal trabecular meshwork. Approximately, 4 hours of trabecular meshwork was removed with the knife, some bleeding had occurred as anticipated after irrigation, aspiration of the anterior chamber of the viscoelastic and most of the blood. The eye was then brought above normal intra-ocular pressure to tamponade any additional bleeding from the trabecular meshwork at that stage in the procedure. The eye was then lightly patched and shielded after receiving 2 drops of 0.5% moxifloxacin and 2 drops of 0.5% timolol. There were no complications from the procedure and she tolerated the procedure well. MMODL / IJN: [id number] /
== END | disposition home or self-care (01) ==
LOC: OR 06:04
PROVIDERS: ATTEND Ophthalmology
DX: H40.1133 Primary open-angle glaucoma, bilateral, severe stage (principal); H54.511A Low vision right eye category 1, normal vision left eye; H54.52A1 Low vision left eye category 1, normal vision right eye; H00.023 Hordeolum internum right eye, unspecified eyelid; H00.026 Hordeolum internum left eye, unspecified eyelid; H52.13 Myopia, bilateral; H52.223 Regular astigmatism, bilateral; H52.4 Presbyopia; Z96.1 Presence of intraocular lens
CPT/HCPCS: 65820; J2250; J2003; J3010

== ENCOUNTER 2025-03-23 09:08 | Day surgery (SDC) | payer MEDICARE ==
[~2025-03-23 09:08] MED LIST changes: -MIDAZOLAM 2 MG/2 ML VIAL ONE; -PILOCARPINE 2% OPHTH DROPS 15 ML BTL OP PRN; -fentaNYL (PF) 50 MCG/ML 2 ML AMP ONE
[2025-03-23 09:40] VITALS: TEMP 97
[2025-03-23 09:56] LABS: Glucose,Whole Blood 96 mg/dL (70-110)
[2025-03-23] MEDS: SODIUM CHLORIDE 0.9% 500 ML 500 ML IV SCH (10:09)
[2025-03-23] MEDS: IV FLUID CONTINUATION 1,000 ML IV ONE (10:11)
[2025-03-23] MEDS ORDERED: ATROPINE SULFATE 0.1 MG/ML 10ML SYRINGE ONE (10:49)
[2025-03-23] MEDS ORDERED: PROPOFOL 10 MG/ML 20 ML VIAL IV ONE (10:49)
[2025-03-23 11:08] LABS: African American GFR (CKD) 50 (>60 ml/min/1.73 sqM); Anion Gap 7 mmol/L; Blood Urea Nitrogen 23 mg/dL (7-17); Calcium 9.4 mg/dL (8.4-10.2); Carbon Dioxide 30 mmol/L (22-30); Chloride 103 mmol/L (98-107); Glucose 87 mg/dL (74-99); Non-African American GFR(CKD) 43 (>60 ml/min/1.73 sqM); Potassium 4.6 mmol/L (3.5-5.1); Sodium 140 mmol/L (137-145)
--- NOTE | 2025-03-23 11:43 | P.EPPROC ---
- EP Procedure Note Date of Procedure: 03/23/25 Electrophysiology Procedure Note: PROCEDURE NAME: Synchronized cardioversion. Consent: Risks and benefits discussed with patient and consent obtained. Anesthesia: provided by Anesthesia team using propofol The appropriate time-out procedure was performed including proper identification of the patient, physician, procedure, documentation, and there were no safety issues identified. The patient participated actively in this. After sedation was achieved, the patient was placed in the supine position and hands free patches were placed on his chest in the AP position. Patient confirmed that she has been compliant to Systemic anticoagulation for more than 60 days without any interruption. We cannot perform DEEJAY because of inability to move neck and technical difficulties to perform procedure. Patient understands the risk of performing cardioversion and the stroke risk associated with it 1 shock was provided at, 200 Joules. It was unsuccessful to convert patient to sinus rhythm however did bring the heart rate down to mid 40s. For this 1 mg of atropine was given and 1 shock at 200 J were delivered. This was unsuccessful to convert the patient to sinus rhythm. Repeat EKG showed rate controlled atrial fibrillation. Complications: The patient tolerated the procedure well without complications.
[2025-03-23 12:31] VITALS: PULSE 62
[2025-03-23 12:48] VITALS: BP 122/83; RESP 16
== END 2025-03-23 13:09 | disposition home or self-care (01) ==
LOC: OR 09:08
PROVIDERS: ATTEND Student in an Organized Health Care Education/Training Program
DX: I48.91 Unspecified atrial fibrillation (principal); E78.5 Hyperlipidemia, unspecified; E11.40 Type 2 diabetes mellitus with diabetic neuropathy, unspecified; E11.39 Type 2 diabetes mellitus with other diabetic ophthalmic complication; H40.9 Unspecified glaucoma; H42 Glaucoma in diseases classified elsewhere; G47.33 Obstructive sleep apnea (adult) (pediatric); E07.9 Disorder of thyroid, unspecified; K21.9 Gastro-esophageal reflux disease without esophagitis; Z79.01 Long term (current) use of anticoagulants; Z79.890 Hormone replacement therapy; Z79.899 Other long term (current) drug therapy
CPT/HCPCS: 92960; 80048; J0461; J2704